=== PATIENT | female | born 1950 | race Caucasian/White ===

== ENCOUNTER 2016-11-22 14:51 | Observation (INO) ==
[2016-11-22] MEDS ORDERED: CARDIZEM IV ONE ×2 (15:09→17:11)
[2016-11-22 17:06] LABS: MANUAL DIFF NEEDED? NO
[2016-11-22 17:20] LABS: BASO% 0.8 % (0.0-0.8); EOS# 0.59 X1000 (0.0-0.7); EOS% 8.3 % (0.0-10.0); HEMATOCRIT 45.4 % (37.0-47.0); HEMOGLOBIN 15.2 g/dL (12.0-16.0); IMM GRAN# 0.04 X1000 (0.0-0.04); IMM GRAN% 0.6 % (0.0-0.5); LYMPH# 1.22 X1000 (1.2-3.4); LYMPH% 17.2 % (20.5-51.1); MCH 31.1 PG (27-31); MCHC 33.5 g/dL (33-37); MCV 92.8 FL (81-99); MONO# 0.83 X1000 (0.11-0.59); MONO% 11.7 % (1.7-9.3); MPV 12.5 FL (7.4-10.4); NEUT% 61.4 % (42.2-75.2); PLT 97 X1000 (130-400); RBC 4.89 XMIL (4.2-5.4)
[2016-11-22] MEDS ORDERED: CARDIZEM CD PO ONE (17:26)
[2016-11-22] MEDS ORDERED: ELIQUIS PO ONE (17:38)
--- NOTE | 2016-11-22 17:42 | PROVIDER DOCUMENTATION ---
This chart was entered by Natalia Tatum Scribe, acting as scribe for Lamine Lara MD. HPI-Cardiac General - General Chief Complaint: Palpitations Stated Complaint: ELEVATED BP/HEART RATE Time Seen by Provider: 11/22/16 15:05 Source: patient Allergies/Adverse Reactions: Patient Allergies Allergy/AdvReac Type Severity Reaction Status Date / Time codeine Allergy NAUSEA/VOMI Verified 11/22/16 15:36 TING milnacipran HCl * Allergy SWELLING Verified 11/22/16 15:37 [From Savella] morphine Allergy NAUSEA/VOMI Verified 11/22/16 15:37 TING prednisone Allergy HEADACHE Verified 11/22/16 15:37 pregabalin [From Lyrica] Allergy Unknown Verified 11/22/16 15:37 Home Medications: Home Medication List Medication Instructions Recorded Confirmed Last Taken Type Buspirone HCl [Buspirone HCl] 20 mg PO BID 11/22/16 11/22/16 11/22/16 History Cyclobenzaprine HCl 10 mg PO QHS 11/22/16 11/22/16 11/21/16 History [Cyclobenzaprine HCl] Docusate Sodium [Colace] 100 mg PO BID 11/22/16 11/22/16 11/22/16 History Duloxetine HCl [Duloxetine HCl] 30 mg PO QPM 11/22/16 11/22/16 11/21/16 History Duloxetine HCl [Duloxetine HCl] 60 mg PO QAM 11/22/16 11/22/16 11/22/16 History Estradiol [Estrace] 1 mg PO QAM 11/22/16 11/22/16 11/22/16 History Gabapentin [Neurontin] 200 mg PO QAM 11/22/16 11/22/16 11/22/16 History Gabapentin [Neurontin] 300 mg PO QPM 11/22/16 11/22/16 11/21/16 History Hydroxyzine HCl [Hydroxyzine HCl] 10 mg PO QHS 11/22/16 11/22/16 11/21/16 History Levothyroxine Sodium 100 mcg PO QAM 11/22/16 11/22/16 11/22/16 History [Levothyroxine Sodium] Meloxicam [Meloxicam] 15 mg PO DAILY 11/22/16 11/22/16 11/22/16 History Montelukast Sodium [Montelukast 10 mg PO QHS 11/22/16 11/22/16 11/21/16 History Sodium] Pantoprazole Sodium [Pantoprazole 40 mg PO QAM 11/22/16 11/22/16 11/22/16 History Sodium] Pentoxifylline [Pentoxifylline] 2 - 3 tab PO DAILY 11/22/16 11/22/16 11/22/16 History Tamsulosin HCl [Tamsulosin HCl] 0.4 mg PO BID 11/22/16 11/22/16 11/22/16 History Topiramate [Topiramate] 50 mg PO QPM 11/22/16 11/22/16 11/21/16 History - History of Present Illness-Cardiac Nature of Presenting Problem: Pt is 66 y/o F presents to the ED with palpitations. Pt states palpitations have been present for 2 months. Pt states the palpitations are intermittent. Pt denies N or V. Location: reports: central Quality of Pain: reports: throbbing Severity in ED: mild Onset/Duration: other (2 mths) Timing: still present Context/Activities at Onset: reports: light activity Modifying Factors: improves with: nothing Palpitation lasted? (mins): 70 Palpitation Quality: fast/pounding heart beat History of arrythmia: reports: none Recent use of:: reports: no stimulants Nitro Today/Relief: reports: no nitro taken today Aspirin Treatment Today: reports: no aspirin today Prior Chest Pain/Cardiac Workup: reports: no prior chest pain, no prior cardiac workup Associated Symptoms: reports: denies symptoms Similar Symptoms Previously?: Yes Recently Seen Here or By Another Healthcare Provider: No Review of Systems - Adult - REVIEW OF SYSTEMS - ADULT Constitutional: reports: no symptoms reported Eyes: reports: no symptoms reported Ears, Nose, Mouth & Throat: reports: no symptoms reported Cardiovascular: reports: irregular heart rate (tachy), palpitations. denies: chest pain, heart murmur Respiratory: reports: no symptoms reported Gastrointestinal: reports: no symptoms reported Genitourinary: reports: no symptoms reported Musculoskeletal: reports: no symptoms reported Integumentary: reports: no symptoms reported Neurological: reports: no symptoms reported Psychiatric: reports: no symptoms reported Endocrine: reports: no symptoms reported Hematologic/Lymphatic: reports: no symptoms reported Allergic/Immunologic: reports: no symptoms reported All Other Systems: Reviewed and Negative Past History - Adult - PAST MEDICAL HISTORY-ADULT Review of Records: reports: Nursing Assessment Review, Medications Reviewed, Social history reviewed & non-contributory. Major Childhood Illnesses: reports: denies history Cardiovascular: reports: denies history Respiratory: reports: denies history Gastrointestinal: reports: GERD Obstetrical/Gynecological: reports: other (hysterectomy) Genitourinary: reports: denies history Musculoskeletal: reports: denies history Neurological: reports: denies history Psychiatric: reports: depression Endocrine/Immune: reports: other (hypothyroidism) Other Conditions: reports: denies history - PRIOR SURGERIES/PROCEDURES Surgical/Procedure History: reports: cholecystectomy, hysterectomy - IMMUNIZATION STATUS Childhood Immunizations: See Nurse Assessment Flu Vaccine: See Nurse Assessment - FAMILY HISTORY Family History: reviewed, not pertinent - SOCIAL HISTORY Smoking: quit less than 1 year, cigarettes Substance Use: denies Living Situation: family Physical Exam-General - PHYSICAL EXAM-ADULT Initial Vital Signs Reviewed: Yes - CONSTITUTIONAL General Appearance: appears well, alert, no apparent distress - EYES Eyes: PERRL/EOMI, pink conjunctivae - HEAD, EARS, NOSE, MOUTH & THROAT HENMT: normocephalic/atraumatic, moist mucous membranes, normal ENT inspection, TMs normal, pharynx normal - NECK Neck: non-tender, full range of motion, supple, normal inspection - RESPIRATORY Respiratory: chest non-tender, lungs clear, normal breath sounds, no pleuratic chest pain, no respiratory distress, no accessory muscle use - CARDIOVASCULAR Cardiovascular: normal peripheral pulses, no edema, no gallop, no JVD, no murmur , tachycardia - GASTROINTESTINAL (ABDOMEN) Abdominal Exam: normal bowel sounds, non tender, soft, no organomegaly, no pulsatile mass - LYMPHATIC Lymphatic: no adenopathy - MUSCULOSKELETAL Back Exam: normal inspection, no CVA tenderness, no vertebral tenderness Extremity: normal range of motion, non-tender, normal gait, normal inspection, no pedal edema, no calf tenderness - SKIN Integumentary: normal color, normal turgor, warm/dry - NEUROLOGIC Neurologic: grossly normal - PSYCHIATRIC Psych/Mental Status: normal mood/affect, oriented x 3 Progress - PLAN OF CARE/RESULTS Progress/Plan/Lab Results: Vital Signs - 8 hr 11/22/16 14:58 11/22/16 15:37 11/22/16 17:19 Temperature 98.0 F Pulse Rate 148 H 145 H 83 Respiratory Rate 20 17 24 Blood Pressure 141/75 147/101 132/84 O2 Sat by Pulse Oximetry 100 97 Laboratory Results - last 24 hr 11/22/16 16:41 WBC 7.11 RBC 4.89 Hgb 15.2 Hct 45.4 MCV 92.8 MCH 31.1 H MCHC 33.5 RDW Std Deviation 13.5 Plt Count 97 L MPV 12.5 H Immature Gran % (Auto) 0.6 H Neut % (Auto) 61.4 Lymph % (Auto) 17.2 L [place] % (Auto) 11.7 H Eos % (Auto) 8.3 Baso % (Auto) 0.8 Immature Gran # (Auto) 0.04 Neut # (Auto) 4.37 Lymph # (Auto) 1.22 [place] # (Auto) 0.83 H Eos # (Auto) 0.59 Baso # (Auto) 0.06 Orders Category Date Time Status IV [Saline Loc] NOW Care 11/22/16 16:00 Active CBC WITH ELECTRONIC DIFF [HEME] Stat Lab 11/22/16 16:41 Completed COMPREHENSIVE METABOLIC PANEL [CHEM] Stat Lab 11/22/16 17:35 Ordered PROTIME WITH INR [COAG] Stat Lab 11/22/16 16:25 Ordered PTT [COAG] Stat Lab 11/22/16 16:25 Ordered Apixaban [Eliquis] Med 11/22/16 17:38 Once 5 mg PO NOW ONE Diltiazem C.d. [Cardizem Cd] Med 11/22/16 17:26 Discontinued 180 mg PO NOW ONE Diltiazem [Cardizem] Med 11/22/16 15:09 Discontinued 20 mg IV NOW ONE Diltiazem [Cardizem] Med 11/22/16 17:11 Discontinued 25 mg IV NOW ONE Result Diagrams: 11/22/16 16:41 - REASSESSMENT Reassessment #1 Status: improving (no in sinus rythme) - EKG 1 Time of EKG reading by physician:: 15:01 EKG Read and Signed by:: Lamine Lara EKG Interpretation (*Must complete 3 of following elements*): Abnormal (T wave abnormality, consider inferior ischemia) Rate: 146 Rhythm: atrial flutter with 2:1 AV conduction Comments: left axis deviation; nonspecific intraventricular block - CONSULTS/PCP/HOSPITALIST Notification #1 *Consult/PCP/Hospitalist*: Dr foster notified he elects to admit and let cardiology see her in AM Time Discussed: 17:40 Departure - Departure Time of Disposition Decision: 17:40 DIAGNOSIS: Paroxysmal atrial fibrillation Disposition: ADMITTED INPATIENT 09 Certified Medical Emergency: Emergent Condition: Stable Referrals and Follow-Ups: Clyde Foster MD [Primary Care Provider] - - Critical Care Note This patient required my direct & personal management of CC.: Yes Total Time (mins): 15 Critical Care Statement: This patient required my direct personal management to treat or rule out processes, the absence of which, could potentiallly result in sudden, clinically significant life or limb threatening deterioration. This chart was documented by the indicated scribe, (Natalia Tatum, [place]) and accurately reflects the services I performed and decisions made by me, Lamine Lara MD, as attested by the provider's signature.
[2016-11-22 19:01] LABS: AGAP 14; ALBUMIN 3.7 g/dL (3.5-5.0); ALKALINE PHOSPHATASE 83 U/L (32-104); BUN 13 mg/dL (8-22); CALCIUM 8.7 mg/dL (8.8-10.2); CHLORIDE 107 mmol/L (98-107); COSMO 282; GOT 18 U/L (10-30); GPT 9 U/L (10-36); POTASSIUM 4.5 mmol/L (3.5-5.1); SODIUM 141 mmol/L (136-145); TCO2 20 mmol/L (25-35); TOTAL BILIRUBIN 0.15 mg/dL (0.20-1.00); TOTAL PROTEIN 6.6 g/dL (6.3-8.3)
[2016-11-22] MEDS ORDERED: TYLENOL PO PRN (20:37)
[2016-11-22] MEDS ORDERED: G.I. COCKTAIL PO ONE (20:45)
[2016-11-22] MEDS ORDERED: FLEXERIL PO PRN (20:45)
[2016-11-22] MEDS: TOPAMAX PO SCH (22:33)
[2016-11-22] MEDS: CYMBALTA PO SCH (22:34)
[2016-11-22] MEDS: FLOMAX PO SCH (22:34)
[2016-11-22] MEDS: BUSPAR PO SCH (22:34)
[2016-11-22] MEDS: COLACE PO SCH (22:34)
[2016-11-22] MEDS: NEURONTIN PO SCH (22:34)
[2016-11-22] MEDS: SINGULAIR PO SCH (22:34)
[2016-11-22] MEDS: HYDROXYZINE PO SCH (22:38)
--- NOTE | 2016-11-22 23:14 | HISTORY AND PHYSICAL ---
PRIMARY CARE PHYSICIAN: Clyde Villegas MD CHIEF COMPLAINT: Chest pain. HISTORY OF PRESENT ILLNESS: A 66-year-old, white female with past medical history significant for fibrocystic breast disease, chronic pain, constipation, depression, venous stasis of the lower extremities, hypothyroidism, migraine headaches, palpitations, elevated blood pressure without diagnosis of hypertension presents for evaluation of above-mentioned symptoms. Current history of present illness began at approximately noon. At that time, the patient states upon exiting the shower, she developed palpitations and significant shortness of breath. After a short time, in addition to the above-mentioned symptoms, she developed dizziness. With time, the symptoms stabilized, but did not completely resolve. The patient was scheduled for a lymphedema treatment at a local physical therapist. Patient traveled there uneventfully. Upon arrival, patient was noted to have increasing shortness of breath and chest pressure. The pressure was located in the substernal region. She denies radiating pain or associated nausea or vomiting. Upon evaluation by the physical therapist, patient was noted to have a heart rate in the 140s and 150s. My office was contacted. Patient was instructed to go to the emergency department immediately. Upon arrival, patient was noted to have atrial fibrillation/atrial flutter with a rapid ventricular response. Patient was treated with Cardizem therapy with conversion back to normal sinus rhythm. Patient will be admitted to the hospital for full evaluation and management of paroxysmal atrial fibrillation with underlying chest discomfort. Of note, patient has had multiple episodes of nonsustained chest discomfort over the course of the last several months. Each of these are described as a substernal pressure without radiation, nausea, or vomiting. Each of these episodes ultimately were self-limiting. In addition, patient complains of increasing shortness of breath/dyspnea on exertion as well as possible orthopnea. She sleeps on 3 pillows. She denies paroxysmal nocturnal dyspnea or significant change in her chronic lower extremity edema. PAST MEDICAL HISTORY: 1. History of an abnormal skin examination with multiple nevi. 2. Fibrocystic breast disease status post bilateral mastectomies and subsequent implantation. 3. Status post bilateral cataract removal. 4. Cholecystitis status post status post open cholecystectomy in 1974. 5. Chronic pain, treated with tramadol, Cymbalta, and exercise. 6. Chronic constipation. 7. Depression/anxiety. 8. Stasis dermatitis of bilateral lower extremities. 9. Dyspareunia. 10. Reflux disease. 11. Hypothyroidism. 12. Low back pain. 13. Macular degeneration. 14. Menopause. 15. Migraine headaches. 16. History of tobacco use. 17. Osteoarthritis. 18. Palpitations. 19. History of peptic ulcer disease in the . 20. Colonic polyps. 21. Elevated blood pressure without a diagnosis of hypertension. 22. History of a right kidney angiomyolipoma. 23. History of shoulder dislocation in 1970. 24. Uterine prolapse status post IGGY in 1974. CURRENT MEDICATIONS: 1. Meloxicam 15 mg daily. 2. Buspirone 20 mg twice daily. 3. Flexeril 10 mg at bedtime as needed. 4. Colace 100 mg twice daily. 5. Duloxetine 60 mg in the morning and 30 mg in the evening. 6. Estradiol 1 mg daily. 7. Gabapentin 200 mg in the morning, 300 mg in the evening. 8. Hydroxyzine 10 mg at bedtime. 9. Levothyroxine 100 mcg daily. 10. Singulair 10 mg at bedtime. 11. Pantoprazole 40 mg daily. 12. Pentoxifylline 400 mg 2 tablets daily. 13. Tamsulosin 0.4 mg twice a day. 14. Topamax 50 mg at bedtime. ALLERGIES: Patient states she is allergic to codeine, Lortab, Lyrica, morphine , prednisone, Savella, and Valium. SOCIAL HISTORY: Patient previously smoked 2 packs per day for 24 years. She stopped in 1988. Denies alcohol or illicit drug use. She is a retired nurse from [employer]. She enjoys her grandchildren. She does not exercise routinely. FAMILY HISTORY: Patient's father passed at age 88 secondary to complications of aspiration pneumonia. He had a history of significant dysphagia and weight loss prior to his suggestive of a possible GI malignancy. The patient's mother passed at age 88 secondary to aspiration pneumonia. She had a history of dementia and hypertension. REVIEW OF SYSTEMS: A 12 point review of systems was performed. Pertinent positives and negatives noted in history present illness. PHYSICAL EXAMINATION: VITAL SIGNS: Temperature 98.1 degrees, heart rate, 79-148, respirations 17 to 24, blood pressure 106-147/56-101. GENERAL: Well nourished, well developed, in no acute distress. HEENT: Normocephalic, atraumatic. Pupils equal, round, react to light. Extraocular muscle motions intact. Sclerae anicteric. [place] conjunctivae. Oral and nasopharynx clear without exudate. NECK: Supple. No lymphadenopathy. No thyromegaly. No bruits auscultated. CARDIOVASCULAR: Regular rate and rhythm. No significant murmurs, rubs, or gallops. PULMONARY: Clear to auscultation bilaterally. ABDOMEN: Soft, nontender, nondistended. Positive bowel sounds. EXTREMITIES: Moves all extremities well. 1 to 2+ lower extremity edema bilaterally with venous stasis changes. NEUROLOGIC: Cranial nerves 2 through 12 grossly intact. Motor and sensory grossly intact. PSYCHOLOGIC: Examination is appropriate. LABORATORY DATA: White blood cell count 7.11, hemoglobin 15.2, hematocrit 45.4 , platelet counts 97,000. Sodium 141, potassium 4.5, chloride 107, bicarb 20, BUN 13, creatinine 0.8, glucose 107, calcium 8.7, total bilirubin 0.15, total protein 6.6, albumin 3.7, alkaline phosphatase 83, AST 18, ALT 9. ASSESSMENT AND PLAN: A 66-year-old, white female with past medical history as noted presents for evaluation of tachycardia. EKG is consistent with atrial fibrillation/atrial flutter with a rapid ventricular response. While in the emergency department, patient was treated with Cardizem therapy. The patient converted from atrial fibrillation/atrial flutter to a sinus-generated rhythm. Eliquis therapy was initiated. Upon my arrival, patient was feeling better, although not back to baseline. At this point, patient will be admitted to the hospital for full evaluation and management of paroxysmal atrial fibrillation/atrial flutter. 1. Admit to General Medicine. 2. Paroxysmal atrial fibrillation/atrial flutter. As above, patient converted to sinus- generated rhythm with Cardizem therapy. We will continue long-acting Cardizem. Eliquis twice daily was initiated. We will schedule an echocardiogram in the a.m. We will consult Cardiology. We will follow serial cardiac enzymes. We will check a thyroid stimulating hormones and magnesium level. We will follow her clinical course closely. 3. Chest discomfort-certainly ischemia could have precipitated her underlying atrial fibrillation. We will follow serial cardiac enzymes. We will treat patient for atrial fibrillation as above. We will consult Cardiology in the morning. We will determine if further stress testing or cardiac intervention is appropriate. 4. Reflux disease-patient has known disease. Certainly the patient's chest symptoms could be reflux associated. We will provide patient with a gastrointestinal cocktail. We will continue pantoprazole therapy. 5. Elevated blood pressure without diagnosis of hypertension. We will monitor patient's blood pressure closely with addition of Cardizem therapy. 6. Anxiety/depression-we will remain aware. We will continue patient on her current regimen. 7. Fluid, electrolytes, nutrition-we will monitor electrolytes, saline lock IV, cardiac prudent diet, 8. Prophylaxis. Patient will be placed on Eliquis therapy. cc: Clyde Villegas MD MTDD
--- NOTE | 2016-11-23 05:27 | EKG Report ---
Test Performed on : 11/22/2016 9:03:24 PM Test Reason : recheck Blood Pressure : / mmHG Vent. Rate : 076 BPM Atrial Rate : 076 BPM P-R Int : 150 ms QRS Dur : 084 ms QT Int : 390 ms P-R-T Axes : 070 032 062 degrees QTc Int : 438 ms Normal sinus rhythm. Septal infarct , age undetermined Abnormal ECG When compared with ECG of 22-NOV-2016 15:01, (Unconfirmed) Significant changes have occurred Confirmed by Adilson DUFF, Dale Oswald ([id number]) on 11/23/2016 7:32:59 AM
--- NOTE | 2016-11-23 05:44 | EKG Report ---
Test Performed on : 11/22/2016 3:01:49 PM Test Reason : atrial fib Blood Pressure : / mmHG Vent. Rate : 146 BPM Atrial Rate : 292 BPM P-R Int : 000 ms QRS Dur : 142 ms QT Int : 340 ms P-R-T Axes : 255 -45 056 degrees QTc Int : 529 ms Atrial flutter. with 2:1 AV conduction. Left axis deviation Nonspecific intraventricular block T wave abnormality, consider inferior ischemia Abnormal ECG No previous ECGs available Confirmed by Dale De Anda MD ([id number]) on 11/25/2016 12:02:40 PM
[2016-11-23] MEDS: PRILOSEC PO SCH (06:21)
[2016-11-23] MEDS: SYNTHROID PO SCH (06:21)
[2016-11-23 07:49] LABS: MANUAL DIFF NEEDED? NO
--- NOTE | 2016-11-23 07:52 | EKG Report ---
Test Performed on : 11/23/2016 07:30:52 AM Test Reason : atrial fib Blood Pressure : / mmHG Vent. Rate : 065 BPM Atrial Rate : 065 BPM P-R Int : 162 ms QRS Dur : 088 ms QT Int : 434 ms P-R-T Axes : 050 009 062 degrees QTc Int : 451 ms Normal sinus rhythm. Normal ECG When compared with ECG of 22-NOV-2016 21:03, Criteria for Septal infarct are no longer present Confirmed by Dale De Anda MD ([id number]) on 11/25/2016 12:03:02 PM
[2016-11-23 07:59] LABS: BASO% 1.7 % (0.0-0.8); EOS% 11.1 % (0.0-10.0); HEMATOCRIT 38.8 % (37.0-47.0); HEMOGLOBIN 12.6 g/dL (12.0-16.0); LYMPH# 1.18 X1000 (1.2-3.4); LYMPH% 21.8 % (20.5-51.1); MCH 31.3 PG (27-31); MCHC 32.5 g/dL (33-37); MCV 96.3 FL (81-99); MONO# 0.76 X1000 (0.11-0.59); MPV 10.5 FL (7.4-10.4); NEUT% 51.4 % (42.2-75.2); PLT 214 X1000 (130-400); RBC 4.03 XMIL (4.2-5.4)
[2016-11-23 08:21] LABS: AGAP 15; ALBUMIN 3.4 g/dL (3.5-5.0); ALKALINE PHOSPHATASE 79 U/L (32-104); BUN 16 mg/dL (8-22); CALCIUM 8.8 mg/dL (8.8-10.2); CHLORIDE 105 mmol/L (98-107); CK PROFILE 101 U/L (24-173); COSMO 283; GOT 16 U/L (10-30); GPT 11 U/L (10-36); POTASSIUM 4.5 mmol/L (3.5-5.1); SODIUM 141 mmol/L (136-145); TCO2 21 mmol/L (25-35); TOTAL BILIRUBIN 0.33 mg/dL (0.20-1.00); TOTAL PROTEIN 6.3 g/dL (6.3-8.3)
[2016-11-23 08:42] LABS: FREE T4 0.92 ng/dL (0.93-1.70)
[2016-11-23] MEDS: ESTRACE PO SCH (09:54)
[2016-11-23] MEDS: CARDIZEM LA PO SCH (09:54)
[2016-11-23] MEDS: ELIQUIS PO SCH ×2 (09:54→20:37)
[2016-11-23] MEDS: BUSPAR PO SCH ×2 (09:54→20:38)
[2016-11-23] MEDS: NEURONTIN PO SCH ×2 (09:55→20:37)
[2016-11-23] MEDS: CYMBALTA PO SCH ×2 (09:55→20:38)
[2016-11-23] MEDS: PROTONIX PO SCH (09:56)
[2016-11-23] MEDS: FLOMAX PO SCH ×2 (09:56→20:37)
[2016-11-23] MEDS: COLACE PO SCH ×2 (09:56→20:37)
[2016-11-23] MEDS: TRENTAL PO SCH ×2 (09:56→20:37)
--- NOTE | 2016-11-23 11:49 | CONSULTATION ---
DATE OF CONSULTATION: 11/23/2016 IMPRESSION: 1. Symptomatic atrial flutter with rapid ventricular rate with associated symptoms of shortness of breath, chest pressure, and tachy palpitations. The episode lasted several hours and spontaneously resolved in the emergency room following initiation of intravenous Cardizem. 2. Remote history of smoking. RECOMMENDATIONS: 1. Follow up cardiac enzymes. 2. Echocardiography. 3. Arrange for screening stress study. 4. Ultimately, the patient would benefit from arrhythmia consultation to consider ablation. In the interim, it would seem reasonable to continue her on beta-vangie to blunt tendency for tachycardia should her atrial flutter recur. 5. Outpatient ambulatory ECG recording with loop monitor for approximately 30 days would be useful in decision-making process regarding ablation. HISTORY: This 66-year-old, white female with no prior cardiac history was admitted through the emergency room yesterday with symptomatic atrial flutter with rapid ventricular rate. She had just taken a shower around midday yesterday and upon stepping out, developed sudden onset of tachy palpitations with associated chest pressure and lightheadedness. Symptoms persisted. She had an appointment in [place] to have treatment related to venous stasis of the lower extremities. Her symptoms persisted and she elected to come in to the emergency room. She was found to be in atrial flutter with rapid ventricular rate. She was started on intravenous Cardizem and converted back to sinus rhythm. Her chest symptoms improved. She does have a tendency for chronic pain syndrome. She recalls occasional brief episodes of tachy palpitations but no prior episodes such as what she experienced on the day of admission. PAST MEDICAL HISTORY: 1. Negative for hypertension, negative for diabetes, and negative for hypercholesterolemia. 2. Hypothyroidism. 3. Gastroesophageal reflux. 4. Depression/anxiety. 5. Chronic pain syndrome treated with tramadol, Cymbalta, and exercise. 6. Macular degeneration. 7. Remote history of peptic ulcer disease. PAST SURGICAL HISTORY: Includes bilateral mastectomy and subsequent reconstruction surgery for fibrocystic breast disease, cholecystectomy, hysterectomy. MEDICATIONS PRIOR TO ADMISSION: As listed. ALLERGIES: She is allergic or intolerant to codeine, Lortab, Lyrica, morphine, prednisone, Savella, and Valium. SOCIAL HISTORY: She previously smoked 2 packs of cigarettes per day for about 24 years. Discontinued this in 1988. She does not use alcohol. FAMILY HISTORY: Negative for premature coronary disease. REVIEW OF SYSTEMS: Pulmonary: Negative. Gastrointestinal: Negative. Constitutional: Negative. The remainder of the review of systems is negative beyond the history of present illness with 14 total systems reviewed. PHYSICAL EXAMINATION: General: This is an overweight, older, white female, in no distress. Vital Signs: As recorded, are stable. HEENT Examination: Extraocular movements appear intact. Mucous membranes are moist. Neck: Supple without jugular venous distention. There are no carotid bruits. Chest: Clear to auscultation. Cardiac Examination: Was a regular rate and rhythm without appreciable murmur or gallop. Abdomen: Soft, nontender. Bowel sounds are normal. Extremities: Demonstrate mild lower extremity edema bilaterally with venous stasis changes. Neurologic Examination: Reveals her to be alert, fully oriented. Speech is fluent. She moves all 4 extremities equally well. Skin: Warm and dry. Psychiatric Examination: Reveals mood to be appropriate. DIAGNOSTIC DATA: ECG on presentation demonstrates atrial flutter with 2:1 conduction. Repeat ECG after conversion back to sinus rhythm demonstrates normal sinus rhythm and is within normal limits. LABORATORY DATA: Includes a initial troponin of 0.021, a followup troponin of 0.02. TSH 2.03. cc: MD Clyde Adams MD
[2016-11-23] MEDS ORDERED: ULTRAM PO PRN (14:04)
[2016-11-23] MEDS ORDERED: IMITREX SUBQ ONE (16:44)
[2016-11-23] MEDS: HYDROXYZINE PO SCH (20:37)
[2016-11-23] MEDS: TOPAMAX PO SCH (20:37)
[2016-11-23] MEDS ORDERED: PRILOSEC PO ONE (20:37)
[2016-11-23] MEDS: SINGULAIR PO SCH (20:38)
--- NOTE | 2016-11-23 22:13 | PROGRESS NOTE ---
DATE: 11/23/2016 SUBJECTIVE: The patient was admitted yesterday with atrial flutter with rapid ventricular response and chest discomfort. The patient was treated with IV Cardizem, with conversion to a normal sinus rhythm. She subsequently was placed on Cardizem CD and Eliquis therapy. She has maintained a normal sinus rhythm. Prior to admission, the patient has noted several weeks of intermittent chest discomfort. The patient was noted to have chest discomfort with her atrial fibrillation. Unfortunately, this has persisted, despite GI intervention. Dr. Shaffer was consulted. Echocardiogram was performed. Stress testing is pending. At present time, patient states she feels reasonably well. She was treated for a migraine headache earlier this evening. Otherwise, her chest discomfort has improved considerably. OBJECTIVE: Vital Signs: T-max 98.3, heart rate 63-79, respirations 16-18, blood pressure 91-132 over 38-72. General: Well-nourished, well-developed, in no acute distress. Cardiovascular: Regular rate and rhythm. No significant murmurs, rubs, or gallops. Pulmonary: Clear to auscultation bilaterally. Abdomen: Soft, nontender, nondistended. Positive bowel sounds. Extremities: Moves all extremities well. No significant clubbing, cyanosis, or edema. Dermatologic: Evaluation reveals no evidence of a rash. LABORATORY DATA: White blood cell count 5.41, hemoglobin 12.6, hematocrit 38.8, platelet count 214,000. Sodium 141, potassium 4.5, chloride 105, bicarbonate 21, BUN 16, creatinine 0.8, glucose 104. Calcium 8.3. Total bilirubin 0.33, total protein 6.3, albumin 3.4, alkaline phosphatase 79, AST 16, ALT 11. CK total 101. Troponin 0.020. TSH 2.03, free T4 0.92. ASSESSMENT AND PLAN: 1. Paroxysmal atrial flutter, with rapid ventricular response - As above. The patient was treated with Cardizem while in the emergency department. She converted back to a normal sinus rhythm. She has been transitioned from IV to oral Cardizem. She has been placed on Eliquis therapy. We will consult Dr. Shaffer for further evaluation and management from a cardiologic standpoint. 2. Chest discomfort - The question is raised whether this was rate dependent or whether this was ischemic mediated. We will also keep in mind the possibility of GI origin. As above, we will consult Dr. Shaffer. We will plan an echocardiography and stress testing. If this returns negative, we will consider alternative etiologies. 3. Lower extremity edema - The patient has chronic lower extremity edema. The patient certainly is at risk for a deep venous thrombosis. We will check lower extremity venous Dopplers. We will determine if further intervention is necessary. 4. Migraine headaches - The patient experienced a significant migraine today. She was treated with IM Imitrex. Symptoms have improved. 5. Reflux disease - We will continue on a proton pump inhibitor. 6. Elevated blood pressure, without the diagnosis of hypertension - The patient's blood pressure will be followed with the addition of Cardizem therapy. Blood pressure at present time is acceptable. 7. Pain anxiety/depression - We will remain aware. 8. Disposition - At this point, the patient continues to require halfway care in the hospital setting. We will plan discharge home once appropriate. cc: Clyde Villegas MD
[2016-11-24] MEDS: PRILOSEC PO SCH (06:30)
[2016-11-24] MEDS: SYNTHROID PO SCH (06:30)
[2016-11-24] MEDS: CARDIZEM LA PO SCH (08:06)
[2016-11-24] MEDS ORDERED: LEXISCAN ONE (08:39)
[2016-11-24] MEDS: ESTRACE PO SCH (10:51)
[2016-11-24] MEDS: NEURONTIN PO SCH (10:51)
[2016-11-24] MEDS: FLOMAX PO SCH (10:52)
[2016-11-24] MEDS: CYMBALTA PO SCH (10:52)
[2016-11-24] MEDS: ELIQUIS PO SCH (10:52)
[2016-11-24] MEDS: COLACE PO SCH (10:52)
[2016-11-24] MEDS: PROTONIX PO SCH (10:52)
[2016-11-24] MEDS: BUSPAR PO SCH (10:52)
[2016-11-24] MEDS: TRENTAL PO SCH (10:52)
[2016-11-24 11:25] VITALS: BP 108/52
--- NOTE | 2016-11-24 11:50 | ECHO REPORT ---
ORDER DATE: 11/23/2016 PROCEDURE: Echocardiogram. ECHOCARDIOGRAPHIC MEASUREMENTS: 1. Interventricular septum 1.0. 2. Left ventricular posterior wall 1.3. 3. Diastolic diameter 4.1. 4. Left atrium 3.9. INTERPRETATION: 1. Aortic valve leaflets are trileaflet. 2. Pulmonic valve was normal. 3. Tricuspid valve was normal. 4. Mitral valve was normal. 5. Normal left ventricular cavity size. Estimated ejection fraction of 60%. 6. Technically suboptimal study. Poor apical windows. 7. Doppler studies revealed there is no aortic stenosis or regurgitation. There is trace mitral regurgitation. 8. Trace tricuspid regurgitation. Peak velocity across the tricuspid valve was 2.6 m/sec. 9. Pulmonary artery systolic pressure of 36 mmHg. 10. Prominent moderator band was noted in the right ventricle normal variant. 11. There is no pericardial effusion or obvious intracardiac mass or thrombus seen. 12. Anterior echo-free space suggestive of pericardial fat pad was noted. 13. There is borderline left atrial enlargement. cc: Tavo Dasilva MD
--- NOTE | 2016-11-24 13:59 | Extremity Venous Study ---
PROCEDURE NAME: Venous U/S Bilateral Legs - 11/22/2016 Exam for comparison of June 2013. STAFF [employer] OFFICER: [place] REQUESTING PHYSICIAN: Clyde Villegas MD INDICATIONS FOR STUDY: Edema in legs, history of right greater saphenous vein ablation, and a history of left greater saphenous vein ablation attempted, but failed. FINDINGS: All veins, deep and superficial veins, were visualized along their course. All veins were compressible with forward flow. No evidence of intraluminal thrombus. There was evidence of an ablated right greater saphenous vein. On the left, the left greater saphenous vein did appear patent with flow. There was some reflux noted in the right common femoral vein. SUMMARY: No deep or superficial venous thrombosis seen in the bilateral lower extremities, but reflux noted in the deep system, at least on the right. cc: MD Clyde Chavarria MD
--- NOTE | 2016-11-24 14:24 | Diag Imaging Result Document ---
PROCEDURE NAME: MYOCARDIAL PERF SCAN, STR/REST - 11/23/2016 SUMMARY: The patient was studied using a two-day protocol. On November 23 the patient was administered 29.9 millicuries of technetium-99m sestamibi after which resting cardiac images were obtained. Patient underwent Lexiscan sestamibi study on 11/24/2016. The patient was administered Lexiscan, after which the heart rate went from 68 beats per minute to 90 beats per minute. The blood pressure went from 110/54 to 121/60. With Lexiscan, the patient denied chest discomfort. Following the administration of Lexiscan, the patient was administered 31.1 millicuries of technetium-99m sestamibi after which gated stress cardiac images were obtained. Baseline ECG demonstrates sinus rhythm and was within normal limits. With Lexiscan, there were no diagnostic ST-segment changes. SPECT images were reconstructed in the short, horizontal, and vertical long axis. Review of these images demonstrated a small region of mildly diminished activity in the apex of the left ventricle on stress images which appears similar on resting images. No significant reversibility is evident. Gated images demonstrate a calculated left ventricular ejection fraction 76% with symmetrical wall motion. CONCLUSIONS: 1. Adequate response to Lexiscan. 2. Clinically negative for chest pain. 3. Electrocardiographically negative for Lexiscan induced myocardial ischemia. 4. Lexiscan sestamibi images demonstrate small fixed area of mildly diminished activity in the apex with corresponding preserved regional wall motion probably due to soft tissue attenuation. There is no convincing scintigraphic evidence of inducible myocardial ischemia. Normal left ventricular systolic function demonstrated. cc: Vince Shaffer MD
--- NOTE | 2016-11-24 14:48 | PROGRESS NOTE ---
DATE: 11/24/2016 SUBJECTIVE: The patient continues without chest symptoms. She remains in sinus rhythm. OBJECTIVE: Vital Signs: Blood pressure 108/52, heart rate 70 and regular. Oxygen saturation 94% on room air. Chest: Clear to auscultation. Cardiovascular: A regular rate and rhythm without appreciable murmur or gallop. There is mild lower extremity edema. LABORATORY DATA: Echocardiography reveals normal left ventricular systolic function without wall motion abnormality and no significant valvular abnormality. Lexiscan sestamibi study demonstrates no evidence of inducible myocardial ischemia. IMPRESSION: 1. Episode of symptomatic atrial flutter with rapid ventricular rate. Spontaneously converted to sinus rhythm after several hours. 2. No significant structural heart disease by noninvasive evaluation. RECOMMENDATIONS: 1. Continue diltiazem and Eliquis for now. 2. Reasonable to discharge the patient. 3. Outpatient 30 day event recorder with followup with her regular rail splitter, Dr. Clark in [place]. 4. If no recurrence of atrial arrhythmias it may be reasonable to switch her from Eliquis to aspirin daily. cc: MD Clyde Adams MD
--- NOTE | 2016-11-24 22:52 | DISCHARGE SUMMARY ---
ADMISSION DATE: 11/22/2016 DISCHARGE DATE: 11/24/2016 ADMISSION DIAGNOSIS: Chest pain. DISCHARGE DIAGNOSES: 1. Paroxysmal atrial flutter with rapid ventricular response, resolved. 2. Chest discomfort with negative stress test. 3. Lower extremity edema with lower extremity Doppler negative for DVT, present on arrival. 4. Migraine headaches, present on arrival. 5. Reflux disease, present on arrival. 6. Elevated blood pressure without a diagnosis of hypertension, present on arrival. 7. Anxiety/depression, present on arrival. CONSULTATIONS: Vince Shaffer MD with Cardiology was consulted for further evaluation and management of atrial flutter and chest discomfort. PROCEDURES: 1. A lower extremity venous Doppler was performed on 11/22/2016 which revealed no deep or superficial venous thrombosis seen in the bilateral lower extremities, but reflux noted in the deep system at least on the right. 2. Echocardiogram was performed on 11/23/2016 which revealed aortic valve leaflets are trileaflet. Pulmonic valve was normal. Tricuspid valve was normal. Mitral valve was normal. Normal left ventricular cavity size. Estimated ejection fraction of 60%. Technically suboptimal study. Poor apical windows. Doppler studies revealed there is no aortic stenosis or regurgitation. There is trace mitral regurgitation. Trace tricuspid regurgitation. Peak velocity across the tricuspid valve was 2.6 L/sec. Pulmonary artery systolic pressure of 36 mmHg. Prominent moderator band was noted in the right ventricle with normal variant. There is no pericardial effusion or obvious intracardiac mass or thrombus seen. Anterior echo-free space suggestive of pericardial fat pad was noted. There is borderline left atrial enlargement. 3. A Myocardial Perfusion Scan was performed which revealed adequate response to Lexiscan. Clinically negative for chest pain. Electrocardiographically negative for Lexiscan induced myocardial ischemia. Lexiscan sestamibi images demonstrate a small fixed area of mildly diminished activity in the apex with corresponding preserved regional wall motion probably due to soft tissue attenuation. There is no convincing evidence of inducible myocardial ischemia. Normal left ventricular systolic function demonstrated. HISTORY AND PHYSICAL EXAMINATION: See admit note. PHYSICAL EXAMINATION PRIOR TO DISCHARGE: Vital Signs: Temperature 97.6 degrees, heart rate 70, respirations 20, blood pressure is 108/52. General: Well-nourished, well-developed, in no acute distress. Cardiovascular: Regular rate and rhythm. No significant murmurs, rubs, or gallops. Pulmonary: Clear to auscultation bilaterally. Abdomen: Soft, nontender, nondistended. Positive bowel sounds. Extremities: Moves all extremities well. No significant clubbing or cyanosis. Patient has 1+ lower extremity edema bilaterally. Dermatologic: Evaluation reveals venous stasis changes to bilateral lower extremities. Otherwise no rash. LABORATORY DATA PRIOR TO DISCHARGE: None. HOSPITAL COURSE: Patient was admitted as per history and physical examination. Hospital course per condition is as follows: 1. Paroxysmal atrial flutter - Upon admission to the emergency department, patient was noted to have atrial flutter with a rapid ventricular response with heart rates greater than 140. Patient was given IV Cardizem followed by oral Cardizem. Throughout hospitalization, patient remained in a sinus-generated rhythm. Full evaluation for possible ischemic etiology was pursued as described below. At time of discharge, patient was asymptomatic. She will be discharged on Cardizem-LA 120 mg daily and Eliquis. Followup with Dr. Clark will be arranged within the next 1-2 days. 2. Chest discomfort - Upon admission, patient was noted to have atypical chest discomfort. Full cardiac evaluation was pursued as described above. Despite a negative evaluation, patient continues to have intermittent, nonsustained symptoms. Upon discussion, this has been present for several months. At this point, patient is interested in discharge home with followup with Dr. Clark. I agree with patient's request, but noted should symptoms progress, she is to go to the emergency department immediately. We will plan followup with Dr. Clark immediately. I suspect patient may require left heart catheterization to definitively define her anatomy as she does have a family history of heart disease. We will defer management. 3. Lower extremity edema - Patient has longstanding lower extremity edema. Venous Doppler returned negative for DVT. She was, however, noted to have venous reflux. Prior to hospitalization, patient was being seen by a physical therapist for lymphedema training. We will plan to resume this in the near future. 4. Lymphedema treatment - We will plan to resume this in the near future. 5. Migraine headaches - Patient had a migraine headache while hospitalized. She was treated with IM Imitrex with resolution. We will continue this as an outpatient as needed. 6. Reflux disease - We will continue patient on pantoprazole therapy. We remain aware that this may be playing a role in her chest discomfort. We will, however, complete a cardiac evaluation prior to further GI intervention. 7. Elevated blood pressure without diagnosis of hypertension - This was noted upon admission. Blood pressure while hospitalized was low while on Cardizem therapy. She was being treated with 180 mg daily. Unfortunately, with standing, she was demonstrating some signs of orthostasis. We will decrease patient's Cardizem to 120 mg prior to discharge. The patient understands that this will not suppress her atrial flutter as significantly as a higher dosage. We will follow this closely as an outpatient. 8. Depression/anxiety - Patient was continued on home medications while hospitalized. DISCHARGE CONDITION: Good. DISPOSITION: Discharge to home. MEDICATIONS: 1. Acetaminophen 650 mg every 4 hours as needed. 2. Eliquis 5 mg twice daily. 3. BuSpar 20 mg twice daily. 4. Flexeril 10 mg at bedtime. 5. Colace 100 mg twice daily. 6. Duloxetine 60 mg in the morning and 30 mg in the evening. 7. Estradiol 1 mg daily. 8. Gabapentin 200 mg in the morning and 300 mg in the evening. 9. Hydroxyzine 10 mg at bedtime. 10. Levothyroxine 100 mcg daily. 11. Singulair 10 mg at bedtime. 12. Pantoprazole 40 mg daily. 13. Pentoxifylline 400 mg twice daily. 14. Tamsulosin 0.4 mg twice daily. 15. Topamax 50 mg at bedtime. 16. Tramadol as needed. 17. Diltiazem ER 120 mg daily. FOLLOWUP: Patient is to follow up with me in approximately 1-2 weeks. The patient to follow up with Dr. Clark in 1-2 days. cc: Clyde Villegas MD
== END 2016-11-24 19:57 | disposition home or self-care (01) ==
LOC: 4N 14:51 → ED 14:51
PROVIDERS: ADMIT Internal Medicine; ATTEND Internal Medicine

== ENCOUNTER 2019-10-10 08:45 | Inpatient (IN) ==
[2019-10-10] MEDS ORDERED: ROCEPHIN 1 GM in NS 50 ML IV ONE (09:03)
[2019-10-10] MEDS ORDERED: DUONEB (A & A) INH ONE (09:03)
[2019-10-10] MEDS ORDERED: SOLU-MEDROL IV ONE (09:03)
--- NOTE | 2019-10-10 09:21 | PROVIDER DOCUMENTATION ---
HPI-Respiratory General - General Chief Complaint: Shortness of Breath Stated Complaint: SOB,AMS Time Seen by Provider: 10/10/19 08:52 Source: patient, family, EMS Allergies/Adverse Reactions: Patient Allergies Allergy/AdvReac Type Severity Reaction Status Date / Time codeine Allergy NAUSEA/VOMI Verified 10/10/19 09:56 TING milnacipran HCl * Allergy SWELLING Verified 10/10/19 09:56 [From Savella] morphine Allergy NAUSEA/VOMI Verified 10/10/19 09:56 TING prednisone Allergy HEADACHE Verified 10/10/19 09:56 pregabalin [From Lyrica] Allergy Unknown Verified 10/10/19 09:56 Home Medications: Home Medication List Medication Instructions Recorded Confirmed Last Taken Type Cyclobenzaprine HCl 10 mg PO QHS 11/22/16 10/10/19 09/01/19 History Estradiol [Estrace] 1 mg PO QAM 11/22/16 10/10/19 09/01/19 History Acetaminophen [Tylenol] 650 mg PO Q4H PRN PRN #0 tablet 11/24/16 10/10/19 09/01/19 Rx Acyclovir [Zovirax] 400 mg PO DAILY tab 10/04/19 10/10/19 Unknown Rx Buspirone [Buspar] 10 mg PO 1200 tab 10/04/19 10/10/19 Unknown Rx Buspirone [Buspar] 20 mg PO BID tab 10/04/19 10/10/19 Unknown Rx Dicyclomine [Bentyl] 10 mg PO TID AC cap 10/04/19 10/10/19 Unknown Rx Diltiazem L.a. [Cardizem LA] 120 mg PO QHS tab 10/04/19 10/10/19 Unknown Rx Duloxetine [Cymbalta] 60 mg PO BID cap 10/04/19 10/10/19 Unknown Rx Famotidine [Pepcid] 20 mg PO DAILY tab 10/04/19 10/10/19 Unknown Rx Fexofenadine [Anne] 180 mg PO QHS tab 10/04/19 10/10/19 Unknown Rx Fluticasone 50 Mcg Nasal [place] 2 spray INTRANASAL BID bottle 10/04/19 10/10/19 Unknown Rx [Flonase] Furosemide [Lasix] 40 mg PO DAILY tab 10/04/19 10/10/19 Unknown Rx Gabapentin [Neurontin] 300 mg PO TID@0900,1300,2100 cap 10/04/19 10/10/19 Unknown Rx Ipratropium [place] Neb [Atrovent 0.5 mg INH RTQ6H.TN neb 10/04/19 10/10/19 Unknown Rx Neb] Lactobacillus Rhamnosus GG 1 ea PO BID cap 10/04/19 10/10/19 Unknown Rx [Culturelle] Levalbuterol Neb [Xopenex Neb] 0.63 mg INH RTQ6H.TN neb 10/04/19 10/10/19 Unknown Rx Levothyroxine [Synthroid] 112 microgm PO DAILY@0700 tab 10/04/19 10/10/19 Unknown Rx Nystatin Powder [Mycostatin Powder] 1 applic TOP BID PRN PRN bottle 10/04/19 10/10/19 Unknown Rx Oxybutynin E.r. [Ditropan Xl] 10 mg PO DAILY tab 10/04/19 10/10/19 Unknown Rx Pantoprazole [Protonix] 40 mg PO QHS tab 10/04/19 10/10/19 Unknown Rx Polyethylene Glycol 3350 [Miralax] 17 gm PO DAILY PRN PRN powder, 10/04/19 10/10/19 Unknown Rx packet Prednisone 40 mg PO DAILY tab 10/04/19 10/10/19 Unknown Rx Saline Nasal [place] [[place] Nasal 1 spray INTRANASAL PRN PRN bottle 10/04/19 10/10/19 Unknown Rx [place]] Sotalol [Betapace] 80 mg PO BID tab 10/04/19 10/10/19 Unknown Rx Sumatriptan Subq [Imitrex Subq] 6 mg SUBQ Q12H PRN PRN vial 10/04/19 10/10/19 Unknown Rx Topiramate [Topamax] 50 mg PO QPM tab 10/04/19 10/10/19 Unknown Rx - History of Present Illness-Resp Nature of Presenting Problem: 69 y/o history of pulmonary fibrosis on home oxygen presented with dyspnea, respiratory distress, constant cough and tachycardia, appeared in respiratory distress. no fever was reported. Severity in ED: reports: moderate Onset/Duration: reports: gradual, other (chronic symptoms worsening this morning, recently discharged from hospital ICU) Timing: reports: still present Exposure: denies: smoke exposure Cough Quality/Degree: reports: moderate, productive cough Episode Frequency: frequent episodes Current Respiratory Medication Therapy: Initiated A/A nebulizer Associated Symptoms: reports: cough, shortness of breath, wheezing Similar Symptoms Previously?: Yes Recently seen or treated by another doctor?: Yes (recently admitted to hospital ) Review of Systems - Adult - REVIEW OF SYSTEMS - ADULT Constitutional: reports: [place]. denies: fever Eyes: reports: no symptoms reported Ears, Nose, Mouth & Throat: reports: no symptoms reported Cardiovascular: reports: no symptoms reported Respiratory: reports: cough, dyspnea on exertion, shortness of breath, wheezing Gastrointestinal: reports: no symptoms reported Genitourinary: reports: no symptoms reported Musculoskeletal: reports: muscle aches Integumentary: reports: no symptoms reported Neurological: reports: no symptoms reported Psychiatric: reports: no symptoms reported Endocrine: reports: no symptoms reported Hematologic/Lymphatic: reports: no symptoms reported Allergic/Immunologic: reports: no symptoms reported Past History - Adult - PAST MEDICAL HISTORY-ADULT Review of Records: reports: Nursing Assessment Review Major Childhood Illnesses: reports: denies history Cardiovascular: reports: denies history Respiratory: reports: denies history Gastrointestinal: reports: GERD Obstetrical/Gynecological: reports: other (hysterectomy) Genitourinary: reports: denies history Musculoskeletal: reports: denies history Neurological: reports: denies history Psychiatric: reports: depression Endocrine/Immune: reports: other (hypothyroidism) Other Conditions: reports: denies history - PRIOR SURGERIES/PROCEDURES Surgical/Procedure History: reports: cholecystectomy, hysterectomy - IMMUNIZATION STATUS Childhood Immunizations: See Nurse Assessment Flu Vaccine: See Nurse Assessment - FAMILY HISTORY Family History: reviewed, not pertinent Physical Exam-General - PHYSICAL EXAM-ADULT Initial Vital Signs Reviewed: Yes - CONSTITUTIONAL General Appearance: alert, moderate distress - EYES Eyes: PERRL/EOMI, pink conjunctivae - HEAD, EARS, NOSE, MOUTH & THROAT HENMT: normocephalic/atraumatic, moist mucous membranes - NECK Neck: non-tender, supple - RESPIRATORY Respiratory: respiratory distress, rhonchi, wheezing, increased rate - CARDIOVASCULAR Cardiovascular: tachycardia - GASTROINTESTINAL (ABDOMEN) Abdominal Exam: non tender, soft, no organomegaly - LYMPHATIC Lymphatic: no adenopathy - MUSCULOSKELETAL Back Exam: normal inspection, no CVA tenderness, no vertebral tenderness Extremity: non-tender, normal inspection, no pedal edema, other (CYANOSIS FINGERS BOTH HANDS) Peripheral Pulses: radial (R): 3+, radial (L): 3+ - SKIN Integumentary: normal turgor, warm/dry - NEUROLOGIC Neurologic: grossly normal, no motor/sensory deficits - PSYCHIATRIC Psych/Mental Status: oriented x 3, anxious Progress - PLAN OF CARE/RESULTS Progress/Plan/Lab Results: Vital Signs - 8 hr 10/10/19 08:54 10/10/19 08:55 10/10/19 10:30 Temperature 98.1 F Pulse Rate 119 H 110 H 116 H Respiratory Rate 35 H 20 36 H Blood Pressure 125/54 109/31 O2 Sat by Pulse Oximetry 98 99 99 10/10/19 11:30 10/10/19 12:30 Temperature Pulse Rate 122 H 104 H Respiratory Rate 30 H 23 Blood Pressure 149/92 151/77 O2 Sat by Pulse Oximetry 100 100 Laboratory Results - last 24 hr 10/10/19 10/10/19 10/10/19 08:53 09:25 09:30 WBC RBC Hgb Hct MCV MCH MCHC RDW Std Deviation Plt Count MPV Neut % (Auto) Lymph % (Auto) [place] % (Auto) Eos % (Auto) Baso % (Auto) Neut # (Auto) Lymph # (Auto) [place] # (Auto) Eos # (Auto) Baso # (Auto) Segmented Neutrophils Lymphocytes Monocytes PT INR PTT (Actin FS) Specimen Type ARTERIAL Sample Site R BRACHIAL pH 7.49 H pCO2 39 pO2 136 H HCO3 29.5 H Base Excess 5.9 H Oxyhemoglobin 96.6 ABG O2 Sat (Calculated) 18.3 ABG O2 Saturation 99.6 ABG Carboxyhemoglobin 2.00 ABG Methemoglobin 1.0 Frankie Test NO A-a O2 Difference 129.0 Total Hemoglobin 13.3 Lactate 1.30 Liter Flow 6.0 Blood Gas Modality CANNULA FiO2 % 44.0 Sodium Potassium Chloride Carbon Dioxide Anion Gap BUN Creatinine Estimated GFR/1.73 m2 BUN/Creatinine Ratio Glucose POC Glucose 60 L Calculated Osmolality Calcium Total Bilirubin AST ALT Alkaline Phosphatase Creatine Kinase Troponin T High Sens Gdz-[id number]-Xyyaisirppc Pept Total Protein Albumin Globulin Albumin/Globulin Ratio Plasma Lactate 1.1 10/10/19 10/10/19 10/10/19 10:30 10:30 10:30 WBC 10.38 RBC 4.08 L Hgb 12.7 Hct 38.6 MCV 94.6 MCH 31.1 H MCHC 32.9 L RDW Std Deviation 16.0 H Plt Count 204 MPV 9.6 Neut % (Auto) 78.4 H Lymph % (Auto) 10.3 L [place] % (Auto) 9.7 H Eos % (Auto) 1.3 Baso % (Auto) 0.3 Neut # (Auto) 8.13 H Lymph # (Auto) 1.07 L [place] # (Auto) 1.01 H Eos # (Auto) 0.14 Baso # (Auto) 0.03 Segmented Neutrophils 78 H Lymphocytes 15 L Monocytes 7 PT INR PTT (Actin FS) Specimen Type Sample Site pH pCO2 pO2 HCO3 Base Excess Oxyhemoglobin ABG O2 Sat (Calculated) ABG O2 Saturation ABG Carboxyhemoglobin ABG Methemoglobin Frankie Test A-a O2 Difference Total Hemoglobin Lactate Liter Flow Blood Gas Modality FiO2 % Sodium 139 Potassium 3.5 Chloride 98 Carbon Dioxide 27 Anion Gap 14 BUN 15 Creatinine 0.9 Estimated GFR/1.73 m2 > 60 BUN/Creatinine Ratio 17 Glucose 133 H POC Glucose Calculated Osmolality 280 Calcium 8.7 L Total Bilirubin 0.51 AST 17 ALT 15 Alkaline Phosphatase 87 Creatine Kinase 37 Troponin T High Sens Onb-D-Aauwjpnlpou Pept 5397 H Total Protein 5.8 L Albumin 3.1 L Globulin 2.7 Albumin/Globulin Ratio 1.1 Plasma Lactate 10/10/19 10/10/19 10:30 10:30 WBC RBC Hgb Hct MCV MCH MCHC RDW Std Deviation Plt Count MPV Neut % (Auto) Lymph % (Auto) [place] % (Auto) Eos % (Auto) Baso % (Auto) Neut # (Auto) Lymph # (Auto) [place] # (Auto) Eos # (Auto) Baso # (Auto) Segmented Neutrophils Lymphocytes Monocytes PT 13.4 INR 1.01 PTT (Actin FS) 30.6 Specimen Type Sample Site pH pCO2 pO2 HCO3 Base Excess Oxyhemoglobin ABG O2 Sat (Calculated) ABG O2 Saturation ABG Carboxyhemoglobin ABG Methemoglobin Frankie Test A-a O2 Difference Total Hemoglobin Lactate Liter Flow Blood Gas Modality FiO2 % Sodium Potassium Chloride Carbon Dioxide Anion Gap BUN Creatinine Estimated GFR/1.73 m2 BUN/Creatinine Ratio Glucose POC Glucose Calculated Osmolality Calcium Total Bilirubin AST ALT Alkaline Phosphatase Creatine Kinase Troponin T High Sens 62 H Zje-I-Jmlnzwabghx Pept Total Protein Albumin Globulin Albumin/Globulin Ratio Plasma Lactate Orders Category Date Time Status Admit - [facility] Routine AdmDCTranf 10/10/19 13:17 Active Cardiac Monitoring NOW Care 10/10/19 09:38 Active IV Insertion NOW Care 10/10/19 09:38 Completed Notify Provider of NEWS Score NOW Care 10/10/19 09:38 Active Saline Loc NOW Care 10/10/19 09:03 Active Regular Diet Diet 10/10/19 13:07 Active CHEST-PORTABLE [RAD] Stat Exams 10/10/19 09:[address] HEAD W/O CONTRAST [CT] Stat Exams 10/10/19 09:45 Completed ABG [RESP] Routine Lab 10/10/19 09:25 Completed BLOOD CULTURE [BLDCUL] Stat Lab 10/10/19 10:30 Results CBC WITH DIFF [HEME] Stat Lab 10/10/19 10:30 Completed CK PROFILE [SP CHEM] Stat Lab 10/10/19 10:30 Completed COMPREHENSIVE METABOLIC PANEL [CHEM] Stat Lab 10/10/19 10:30 Completed LACTATE, PLASMA [CHEM] Lab 10/10/19 14:29 Completed LACTATE, PLASMA [CHEM] Lab 10/10/19 15:45 Ordered LACTATE, PLASMA [CHEM] Q3H Lab 10/10/19 09:30 Completed PRO B-NATRIURETIC PEPTIDE Stat Lab 10/10/19 10:30 Completed PROTIME WITH INR [COAG] Stat Lab 10/10/19 10:30 Completed PTT [COAG] Stat Lab 10/10/19 10:30 Completed TROPONIN T HIGH SENSITIVITY Stat Lab 10/10/19 10:30 Completed URINALYSIS W/POSS RFLX CULT [URINALYSIS] Stat Lab 10/10/19 14:26 Completed Albuterol 2.5MG/Ipratrop 0.5MG [Duoneb (A & A)] Med 10/10/19 09:03 Discontinued 3 ml INH NOW ONE CefTRIAXONE [Rocephin] 1 gm Med 10/10/19 09:03 Discontinued 0.9% Sodium Chloride Inj [Ns] 50 ml IV NOW Furosemide [Lasix] Med 10/10/19 12:56 Discontinued 40 mg IV NOW ONE Methylprednisolone Sod Succ [Solu-Medrol] Med 10/10/19 09:03 Discontinued 125 mg IV NOW ONE Aerosol Treatments Routine Oth 10/10/19 09:05 Completed Aerosol Treatments Stat Oth 10/10/19 09:05 Completed O2 Per Protocol Stat Oth 10/10/19 09:38 Completed Oxygen Device Routine Oth 10/10/19 13:18 Completed Pulse Oximetry Stat Oth 10/10/19 09:03 Completed EKG [EKG] Stat Ther 10/10/19 08:58 Draft Transfer/Admit Order [TRANSFER] Routine Transfer 10/10/19 13:18 Completed Result Diagrams: 10/10/19 10:30 10/10/19 10:30 - EKG 1 Time of EKG reading by physician:: 08:58 EKG Read and Signed by:: Luisa Araya EKG Interpretation (*Must complete 3 of following elements*): Abnormal (left anterior fascicular block; possible Lateral infarct, age undetermined) Rate: 127 Rhythm: Sinus Tachycardia QRS: RBB (incomplete), other (PAC's) FL Interval: normal ST Wave: normal - CONSULTS/PCP/HOSPITALIST Notification #1 *Consult/PCP/Hospitalist*: DR WARREN Time Discussed: 13:21 Consult Disposition: Admit (WANT ADMISSION TO [facility] AND HE WILL SEE PATIENT THERE) Departure - Departure Date of Disposition Decision: 10/10/19 Time of Disposition Decision: 13:19 DIAGNOSIS: Respiratory distress Disposition: ADMITTED INPATIENT 09 Certified Medical Emergency: Emergent Condition: Good - Critical Care Note This patient required my direct & personal management of CC.: No Attestation - Physician/ TENNILLE Attestation Patient care was provided by Advanced Practice Provider:: No The physician spent face to face time with patient:: Yes Advanced Practice Provider documentation review:: Supervising physician onsite and consulted in the evaluation and care of this patient. The physician did have a face to face encounter with the patient.
[2019-10-10 09:30] LABS: ALLEN TEST NO; BE 5.9 mmoll (-3.0-3.0); BLOOD TYPE ARTERIAL; HCO3-(ACT) 29.5 mmoll (20.0-26.0); O2(CT) 18.3 mL/dL (15.0-23.0); O2HB 96.6 % (95.0-99.0); PCO2(98.6) 39 mmHg (35-45); PO2(98.6) 136 mmHg (60-100); SAMPLE BLOOD; SAO2 99.6 % (95.0-100.0); THB 13.3 g/dL (11.5-17.4); pH(98.6) 7.49 (7.35-7.45)
[2019-10-10 09:31] LABS: MODALITY CANNULA
--- NOTE | 2019-10-10 10:16 | Diag Imaging Result Doc PS360 ---
EXAM: CHEST-PORTABLE 10/10/2019 HISTORY: cough TECHNIQUE: AP portable at 0950 COMMENT: There is ill-defined opacity particularly in the right middle and lower lobes. The left hemidiaphragm is elevated. There is shift of some of the mediastinal contents to the right. Compared to 10/02/2019 there is denser opacification of the right middle lobe. IMPRESSION: Pulmonary edema and/or pneumonia slightly worse than on 10/02/2019. Electronically signed by Henrry Buchanan 10/10/2019 10:13 AM
--- NOTE | 2019-10-10 10:55 | Diag Imaging Result Doc PS360 ---
EXAM: CT HEAD W/O CONTRAST INDICATION: altered mental status, dilated pupils TECHNIQUE: This exam was performed using automated exposure control, adjustment of mA or kV according to patient size, and/or use of iterative reconstruction technique. COMPARISON: 04/14/2017 FINDINGS: There is no definite acute infarct given the limited sensitivity of CT versus MRI. There is no discrete intracranial mass, mass effect, or intracranial hemorrhage. The surrounding soft tissues and bony structures are essentially unremarkable. IMPRESSION: No evidence of acute intracranial pathology. Electronically signed by Alex Vega 10/10/2019 10:52 AM
[2019-10-10 11:05] LABS: INR 1.01; PROTIME 13.4 Seconds (11.0-16.0)
[2019-10-10 11:06] LABS: PTT 30.6 Seconds (22.3-41.8)
[2019-10-10 11:10] LABS: BASO# 0.03 X1000 (0.0-0.2); BASO% 0.3 % (0.0-0.8); EOS# 0.14 X1000 (0.0-0.7); EOS% 1.3 % (0.0-10.0); HEMATOCRIT 38.6 % (37.0-47.0); HEMOGLOBIN 12.7 g/dL (12.0-16.0); LYMPH# 1.07 X1000 (1.2-3.4); LYMPH% 10.3 % (20.5-51.1); MCH 31.1 PG (27-31); MCHC 32.9 g/dL (33-37); MCV 94.6 FL (81-99); MONO# 1.01 X1000 (0.11-0.59); MONO% 9.7 % (1.7-9.3); MPV 9.6 FL (7.4-10.4); NEUT# 8.13 X1000 (1.4-6.5); NEUT% 78.4 % (42.2-75.2); PLT 204 X1000 (130-400); RBC 4.08 XMIL (4.2-5.4); WBC 10.38 X1000 (4.8-10.8)
[2019-10-10 11:20] LABS: AGAP 14; ALB/GLOB RATIO 1.1; ALBUMIN 3.1 g/dL (3.5-5.0); ALKALINE PHOSPHATASE 87 U/L (32-104); BUN 15 mg/dL (8-22); CALCIUM 8.7 mg/dL (8.8-10.2); CHLORIDE 98 mmol/L (98-107); CK PROFILE 37 U/L (24-173); COSMO 280; CREATININE 0.9 mg/dL (0.5-0.9); ESTIMATED GFR > 60; GLUCOSE 133 mg/dL (70-104); GOT 17 U/L (10-30); GPT 15 U/L (10-36); POTASSIUM 3.5 mmol/L (3.5-5.1); SODIUM 139 mmol/L (136-145); TCO2 27 mmol/L (25-35); TOTAL BILIRUBIN 0.51 mg/dL (0.20-1.00); TOTAL PROTEIN 5.8 g/dL (6.3-8.3)
[2019-10-10 11:34] LABS: LYMPHS 15 % (21-51); MONO 7 % (1-9); SEGS 78 % (42-75)
--- NOTE | 2019-10-10 12:21 | EKG Report ---
Test Performed on : 10/10/2019 08:58:36 AM Test Reason : SOB/AMS Blood Pressure : / mmHG Vent. Rate : 127 BPM Atrial Rate : 127 BPM P-R Int : 144 ms QRS Dur : 110 ms QT Int : 340 ms P-R-T Axes : 062 -73 -09 degrees QTc Int : 494 ms Sinus tachycardia. with premature atrial complexes. Incomplete right bundle branch block Left anterior fascicular block Possible Lateral infarct (cited on or before 28-SEP-2019) Abnormal ECG When compared with ECG of 30-SEP-2019 15:52, premature atrial complexes. are now present Vent. rate has increased BY 56 BPM T wave inversion now evident in Anterior leads Unconfirmed Result
[2019-10-10] MEDS ORDERED: LASIX IV ONE (12:56)
[2019-10-10 14:38] LABS: URINE SOURCE CATH
[2019-10-10 14:47] LABS: BILIRUBIN URINE NEGATIVE (NEGATIVE); BLOOD URINE SMALL (NEGATIVE); COLOR YELLOW; GLUCOSE URINE NEGATIVE (NEGATIVE); KETONE URINE NEGATIVE (NEGATIVE); LEUKOCYTES URINE LARGE (NEGATIVE); NITRITE URINE NEGATIVE (NEGATIVE); PH URINE 5.5; PROTEIN URINE 30 mg/dL (NEGATIVE); SP GRAVITY URINE 1.018; TURBIDITY URINE HAZY (CLEAR); UROBILINOGEN URINE NORMAL (NORMAL)
[2019-10-10 14:54] LABS: UR EPITHELIAL CELLS <10 /HPF (<10); URINE BACTERIA 3+ /HPF; URINE RBC <10 /HPF (<10); URINE WBC TNTC /HPF (<10)
[2019-10-10 14:59] LABS: URINE CASTS NONE SEEN; URINE CRYSTALS NONE SEEN; URINE SMALL ROUND CELLS NONE SEEN; URINE YEAST NONE SEEN
[2019-10-10] MEDS ORDERED: MIRALAX PO PRN (17:16)
[2019-10-10] MEDS ORDERED: AYR NASAL SPRAY NAS PRN (17:16)
[2019-10-10] MEDS ORDERED: MYCOSTATIN POWDER TOP PRN (17:16)
[2019-10-10] MEDS ORDERED: TYLENOL PO PRN (17:16)
[2019-10-10] MEDS ORDERED: VANCOMYCIN IV PER PHARMACY MISC SCH (17:30)
[2019-10-10] MEDS: LOVENOX SUBQ SCH (18:15)
[2019-10-10] MEDS: ZOSYN 3.375 GM in NS 50 ML IV SCH (18:15)
[2019-10-10] MEDS: SOLU-MEDROL IV SCH (18:15)
--- NOTE | 2019-10-10 19:46 | HISTORY AND PHYSICAL ---
PRIMARY CARE PHYSICIAN: Dr. Clyde Villegas. CHIEF COMPLAINT: Profound shortness of breath. HISTORY OF PRESENT ILLNESS: A 69-year-old white female with a complicated past medical history presents for evaluation of above-mentioned symptoms. Pertinent history of present illness began on September 02. At that time, patient presented to the emergency department with fevers, chills, and shortness of breath. Full evaluation was pursued. Chest x-ray returned consistent with bilateral bronchopneumonia. Patient was admitted to the hospital for further evaluation and management. Initially, patient was placed on broad-spectrum antibiotics and bronchodilators. Unfortunately, despite this aggressive intervention as well as pulmonary toilet, her condition continued to decline. Dr. Rodriguez was consulted. Patient was placed on BiPAP therapy. Despite continued aggressive intervention, symptoms progressively declined. Sedimentation rate returned elevated. CRP returned grossly elevated. For this reason, a steroid therapy was initiated. After steroids were initiated, patient's overall condition very slowly improved. The patient was treated with aggressive pulmonary intervention, steroids, and antibiotics for multiple days while hospitalized. Ultimately, antibiotics were discontinued. Patient was transitioned to oral steroids. On 10/03/2018 it was felt patient had reached maximum benefit while hospitalized. She was transferred to rehabilitation. Initially, patient states she did reasonably well. Unfortunately, after approximately 3 to 4 days of rehabilitation, she and her family chose to return home secondary to inability for family to visit while in rehabilitation. Since home, her condition continued to decline. Initially, she developed cough and congestion on Tuesday. Since that time, she has developed profound shortness of breath, wheezing, and weakness. She has had chills but no fevers. Cough is productive of a purulent sputum. Because of her progressive illness, patient presented to the emergency department this morning. Full evaluation was pursued. Chest x-ray suggested chronic pulmonary fibrosis with worsening of edema versus pneumonia. The patient will be admitted to the hospital for full evaluation and management of hypoxic respiratory failure in the setting of bilateral bronchopneumonia and pulmonary fibrosis. Of note, while hospitalized recently, patient also developed atrial fibrillation with rapid ventricular response. Multiple medications were attempted, but ultimately sotalol was found to be most effective. She denies palpitations or chest discomfort at present time. PAST MEDICAL HISTORY: 1. Progressive osteoarthritis of bilateral knees. 2. Multiple nevi. 3. Fibrocystic breast disease, status post bilateral mastectomies followed by implant reconstruction in 1988 and revision in 2008. 4. Bilateral cataract removal in . 5. Acute on chronic cholecystitis, status post cholecystectomy in 1974. 6. Chronic pain/fibromyalgia. 7. Constipation. 8. History of a cystocele, status post surgical intervention in 2018. 9. Depression. 10. Chronic lower extremity dermatitis. 11. Reflux disease. 12. Hypothyroidism. 13. Chronic low back pain. 14. Macular degeneration. 15. Menopause. 16. Migraine headaches. 17. History of tobacco use, 2 packs per day for 24 years, but stopped in 1988. 18. Diffuse osteoarthritis. 19. Anxiety. 20. History of peptic ulcer disease in the . 21. Colonic polyps. 22. Prehypertension. 23. History of pyelonephritis. 24. History of an angiomyolipoma per CT scan in 2009. 25. Chronic shortness of breath, initially diagnosed associated with amiodarone use. 26. History of right shoulder dislocation in 1970. 27. Atrial fibrillation. 28. Uterine prolapse, status post IGGY in 1974. CURRENT MEDICATIONS: 1. Acetaminophen 650 mg every 4 hours as needed. 2. Acyclovir 400 mg daily. 3. Buspirone 20 mg in the morning, 10 mg at lunch and 20 mg in the evening. 4. Cyclobenzaprine 10 mg at bedtime. 5. Dicyclomine 10 mg 3 times daily with meals. 6. Diltiazem ER 120 mg at bedtime. 7. Duloxetine 60 mg twice daily. 8. Estradiol 1 mg daily. 9. Famotidine 20 mg daily. 10. Anne 180 mg at bedtime. 11. Fluticasone nasal spray 2 sprays each nostril twice daily. 12. Lasix 40 mg daily. 13. Gabapentin 300 mg 3 times daily at 9 a.m., 1 p.m., and 9 p.m. 14. Ipratropium bromide every 6 hours while awake. 15. Xopenex 0.63 mg every 6 hours while awake. 16. Culturelle 1 capsule twice daily. 17. Levothyroxine 112 mcg daily. 18. Nystatin powder as needed. 19. Ditropan XL 10 mg daily. 20. Pantoprazole 40 mg daily. 21. MiraLAX 17 g in 8 ounces of juice daily as needed. 22. Prednisone 40 mg daily. 23. Saline nasal spray as needed. 24. Sotalol 80 mg twice daily. 25. Imitrex injection every 12 hours as needed. 26. Topamax 50 mg at bedtime. 27. Tramadol 50 mg every 6 hours as needed. ALLERGIES: Patient states she is allergic to Cipro which causes nausea/vomiting/diarrhea, Lortab which causes nausea/vomiting diarrhea, Lyrica which causes blurred vision, morphine which causes nausea/vomiting/diarrhea, Savella which causes lower extremity edema, and Valium which causes confusion. SOCIAL HISTORY: The patient smoked 2 packs per day for 24 years. She stopped in 1988. She denies alcohol or illicit drug use. She is a retired nurse from [employer]. She enjoys her grandchildren. She does not exercise routinely. FAMILY HISTORY: Patient's father passed at age 88 secondary to complications of aspiration pneumonia. He had a history of dysphagia and weight loss prior to his suggesting possible GI malignancy. He also had a history of hypertension. Patient's mother passed at age 88 secondary to aspiration pneumonia. She had a history of dementia and hypertension. REVIEW OF SYSTEMS: A 12 point review of systems was performed. Pertinent positives and negatives are noted in history present illness. PHYSICAL EXAMINATION: VITAL SIGNS: Temperature 98.4 degrees, heart rate 98, respirations 25, blood pressure is 131/56. GENERAL: Chronically ill appearing, no acute distress. HEENT: Normocephalic, atraumatic. Pupils equal, round, reactive to light. Extraocular muscles intact. Sclerae anicteric. Bonesteel conjunctivae. Oral and nasopharynx clear without exudate. NECK: Supple. No lymphadenopathy. No thyromegaly. No bruits auscultated. CARDIOVASCULAR: Regular rate and rhythm. No significant murmurs, rubs, or gallops. PULMONARY: Crackles at bilateral bases extending approximately 2/3 of the lung field, mild increased work of breathing. ABDOMEN: Soft, nontender, nondistended. Positive bowel sounds. EXTREMITIES: Moves all extremities well. No significant clubbing, cyanosis, or edema. NEUROLOGIC: Cranial nerves 2 through 12 grossly intact. Motor and sensory grossly intact. PSYCHOLOGIC: Examination is appropriate. LABORATORY DATA: White blood cell count 10.38, hemoglobin 12.7, hematocrit 38.6 platelet count 204,000, PT 13.4, INR is 1.01. PTT 30.6, pH 7.49, pCO2 39, PO2 136, bicarbonate 29.5. Sodium 139, potassium 3.5, chloride 98, bicarb 27, BUN 15, creatinine 0.9 glucose 133. Calcium 8.9, total bilirubin 0.51, total protein 5.8, albumin 3.1, alkaline phosphatase 87, AST 17, ALT 15, CK total 37, troponin 62, proBNP 5397. Urinalysis revealed small blood, large leukocytes, 3+ bacteria. Chest x-ray revealed pulmonary edema and/or pneumonia slightly worse than 10/02/2019. ASSESSMENT AND PLAN: A 69-year-old white female with a complicated past medical history presents for evaluation of profound shortness of breath. The patient was noted to be in considerable respiratory distress upon arrival in the emergency department. Chest x-ray suggested pulmonary edema versus pneumonia. The patient was provided a dose of Rocephin, IV Solu-Medrol and IV Lasix in the emergency department. The patient's condition has improved although not back to baseline. Patient will be admitted to the home hospital for full evaluation and management of hypoxic respiratory failure with associated bilateral bronchopneumonia in the setting of pulmonary fibrosis. 1. Admit to PVC unit. 2. Hypoxic respiratory failure-from the patient's recent hospitalization, this likely represents a bilateral bronchopneumonia/pulmonary edema in the setting of pulmonary fibrosis. Additionally, patient was noted to have significantly elevated inflammatory markers while hospitalized, suggesting a possible inflammatory cause. The patient has been started on broad- spectrum antibiotics, steroids, and bronchodilators. Oxygen therapy will be provided per protocol. Sputum cultures and blood cultures have been drawn. 3. Bilateral bronchopneumonia-as above, this likely is the etiology, especially in the setting of a purulent sputum production. We will start patient on Zosyn and vancomycin therapy. We will consult Dr. Rodriguez. We will check sputum and blood cultures. We will encourage aspiration precautions and incentive spirometry. We will continue pulmonary toilet. 4. Pulmonary fibrosis-patient has underlying disease, quite concerning. We will continue to treat patient's acute illness with anticipation long-term evaluation for pulmonary fibrosis may be warranted. 5. Paroxysmal atrial fibrillation 6. Possible urinary tract infection-patient has too many to count white blood cells and 3+ bacteria per urinalysis. We will start patient on broad-spectrum antibiotics as noted. We will send urine for culture. She denies significant symptoms currently. 7. Paroxysmal atrial fibrillation-we will continue patient on her home medications for now. We will follow patient on telemetry. At this point, the risk of full anticoagulation outweighs the benefits in the setting of significant pulmonary injury and risk for pulmonary hemorrhage. 8. Hypothyroidism-we will continue patient on levothyroxine replacement. 9. Depression/anxiety/chronic pain-we will continue patient on duloxetine and gabapentin therapy. Tramadol has been held as it does interact with the sotalol therapy. 10. Cutaneous Opal-we will resume topical nystatin. 11. Profound weakness-unfortunately, this persists. Patient will likely require long-term physical therapy/rehabilitation. We will resume this while hospitalized as soon as clinically stable. 12. Fluids, electrolytes, nutrition. We will monitor electrolytes. Saline lock IV. Regular diet. 13. Prophylaxis. Patient will be placed on subcu Lovenox. cc: Clyde Villegas MD
[2019-10-10] MEDS: ATROVENT NEB INH SCH ×2 (19:55→23:50)
[2019-10-10] MEDS: XOPENEX NEB INH SCH ×2 (19:55→23:50)
[2019-10-10] MEDS ORDERED: VANCOMYCIN 1,900 MG in NS 500 ML IV ONE (20:00)
[2019-10-10] MEDS: ALLEGRA PO SCH (21:52)
[2019-10-10] MEDS: FLEXERIL PO SCH (21:52)
[2019-10-10] MEDS: TOPAMAX PO SCH (21:52)
[2019-10-10] MEDS: CYMBALTA PO SCH (21:52)
[2019-10-10] MEDS: CARDIZEM LA PO SCH (21:52)
[2019-10-10] MEDS: MYCOSTATIN SUSP PO SCH (21:52)
[2019-10-10] MEDS: PROTONIX [NONFORMULARY] PO SCH (21:53)
[2019-10-10] MEDS: BUSPAR PO SCH (21:53)
[2019-10-10] MEDS: FLONASE NAS SCH (21:53)
[2019-10-10] MEDS: NEURONTIN PO SCH (21:53)
[2019-10-10] MEDS: CULTURELLE PO SCH (21:53)
[2019-10-10] MEDS: BETAPACE PO SCH (21:53)
--- NOTE | 2019-10-10 22:11 | PULMONOLOGY CONSULTATION ---
DATE: 10/10/2019 REQUESTING CLINICIAN: Clyde Villegas MD REASON FOR CONSULTATION: Respiratory failure. HISTORY OF PRESENT ILLNESS: Ms. Garcia is a 69-year-old white female who has been followed by an outside hydropulper for pulmonary fibrosis. The patient was admitted to the hospital from 09/02/2019 until 10/04/2019 with acute respiratory failure and acute bilateral pulmonary infiltrates. Etiology for the acute decompensation was not evident but could have been related to an exacerbation of her pulmonary fibrosis, an acute infectious insult, or an aspiration event. Clinically, she appeared to have ARDS with slow clinical improvement. The patient was discharged to a rehab facility. Unfortunately, with the current COVID-19 pandemic, the facility was locked down to visitors. Family was concerned about the number of staff present and decided to take her home. The patient has had progressive decline in presented to the emergency room with profound shortness of breath with some worsening of infiltrates at the right mid and right lung base. The patient does report some cough and sputum production. She has dyspnea with minimal exertion. She has no appetite. She is having difficulty with painful swallowing. PAST MEDICAL HISTORY: 1. Pulmonary fibrosis as per above. The patient's fibrosis appeared mild prior to this acute decompensation. 2. Raynaud phenomenon with negative connective tissue evaluation. 3. Fibromyalgia. 4. Depressive disorder. 5. Macular degeneration. 6. Status post cholecystectomy. 7. Chronic constipation. 8. Osteoarthritis. 9. Intermittent atrial fibrillation. 10. Herpetic eye infection, currently on acyclovir. 11. Migraine headaches. 12. Hiatal hernia. SOCIAL HISTORY: Patient smoked 2 packs a day for 24 years. She has not smoked for several years. No alcohol use. FAMILY HISTORY: Positive for dementia, hypertension and aspiration pneumonia in both the mother and the father. REVIEW OF SYSTEMS: Notable for profound fatigue, decreased appetite, painful swallowing, dyspnea, generalized weakness. PHYSICAL EXAMINATION: General: Reveals a chronically ill-appearing female with overt cyanosis to her hands. Vital signs: Blood pressure 124/82, heart: regular without murmurs. respiratory rate 33, oxygen saturation 100% on 6 L per nasal cannula. HEENT: Pupils are equal and reactive. Oropharynx appears clear. Neck: Supple. Chest: Reveals coarse rhonchi and crackles bilaterally. Cardiac Exam: Increased rate, regular rhythm. Abdomen: Soft. Extremities: Reveal cyanosis in the hands consistent with Raynaud phenomenon. LABORATORIES: White blood count 10.38, hemoglobin 12.7, platelet count 204,000. Arterial blood gas on 6 L reveals a pH of 7.49, pCO2 of 39, pO2 of 136. Sodium 139, potassium 3.5, chloride 98, bicarbonate 27, BUN 15, creatinine 0.9. ProBNP is elevated at 5379. IMAGING: Chest x-ray reveals increased consolidation or edema at the right mid lung zone. IMPRESSION: A 69-year-old with: 1. Acute on chronic hypoxemic respiratory failure. 2. Dyspnea at rest. 3. Dysphagia. 4. Severe deconditioning. 5. Worsening parenchymal infiltrates. RECOMMENDATIONS: 1. Agree with current antibiotic regimen. 2. Agree with sputum for C and S. 3. We will initiate nystatin swish and swallow for probable candidiasis. 4. Consider barium swallow after she has received several more days of nystatin. 5. Initiate physical therapy. 6. Continue reflux precautions. 7. Continue current steroid dose. 8. Long-term prognosis is guarded. cc: MD Clyde Donohue MD MTDD
[2019-10-11] MEDS: SOLU-MEDROL IV SCH ×3 (00:57→17:08)
[2019-10-11] MEDS: ZOSYN 3.375 GM in NS 50 ML IV SCH ×5 (00:57→23:37)
[2019-10-11] MEDS: BENTYL PO SCH ×4 (05:43→17:08)
[2019-10-11] MEDS: SYNTHROID PO SCH ×2 (05:43→06:08)
[2019-10-11] MEDS: BUSPAR PO SCH ×3 (05:44→21:00)
[2019-10-11 05:45] LABS: BASO# 0.02 X1000 (0.0-0.2); BASO% 0.3 % (0.0-0.8); HEMATOCRIT 37.5 % (37.0-47.0); HEMOGLOBIN 11.8 g/dL (12.0-16.0); IMM GRAN# 0.08 X1000 (0.0-0.04); LYMPH# 0.55 X1000 (1.2-3.4); MCH 30.3 PG (27-31); MCHC 31.5 g/dL (33-37); MCV 96.2 FL (81-99); MONO# 0.58 X1000 (0.11-0.59); MONO% 7.4 % (1.7-9.3); MPV 9.7 FL (7.4-10.4); NEUT# 6.64 X1000 (1.4-6.5); NEUT% 84.3 % (42.2-75.2); PLT 216 X1000 (130-400); RDW 15.9 % (11.5-14.5); WBC 7.87 X1000 (4.8-10.8)
[2019-10-11 06:16] LABS: AGAP 14; ALB/GLOB RATIO 0.9; ALBUMIN 2.9 g/dL (3.5-5.0); ALKALINE PHOSPHATASE 92 U/L (32-104); BUN 17 mg/dL (8-22); CALCIUM 8.1 mg/dL (8.8-10.2); CHLORIDE 99 mmol/L (98-107); COSMO 285; CREATININE 0.9 mg/dL (0.5-0.9); ESTIMATED GFR > 60; GLUCOSE 143 mg/dL (70-104); GOT 13 U/L (10-30); GPT 13 U/L (10-36); POTASSIUM 3.6 mmol/L (3.5-5.1); SODIUM 141 mmol/L (136-145); TCO2 28 mmol/L (25-35); TOTAL BILIRUBIN 0.36 mg/dL (0.20-1.00); TOTAL PROTEIN 6.1 g/dL (6.3-8.3)
[2019-10-11 06:49] LABS: SED RATE 93 mm/hr (0-20)
[2019-10-11] MEDS: ATROVENT NEB INH SCH ×5 (08:59→23:40)
[2019-10-11] MEDS: XOPENEX NEB INH SCH ×5 (08:59→23:35)
[2019-10-11] MEDS: ESTRACE PO SCH (09:49)
[2019-10-11] MEDS: DITROPAN XL PO SCH (09:50)
[2019-10-11] MEDS: NEURONTIN PO SCH ×3 (09:50→20:59)
[2019-10-11] MEDS: CULTURELLE PO SCH ×2 (09:50→20:59)
[2019-10-11] MEDS: BETAPACE PO SCH ×2 (09:50→20:59)
[2019-10-11] MEDS: ZOVIRAX PO SCH (09:50)
[2019-10-11] MEDS: PEPCID PO SCH (09:50)
[2019-10-11] MEDS: MYCOSTATIN SUSP PO SCH ×4 (09:50→20:59)
[2019-10-11] MEDS: CYMBALTA PO SCH ×2 (09:50→21:00)
[2019-10-11] MEDS: FLONASE NAS SCH ×2 (09:50→21:00)
[2019-10-11] MEDS ORDERED: LASIX IV ONE (11:06)
[2019-10-11] MEDS ORDERED: CALMOSEPTINE OINTMENT TOP PRN (16:03)
[2019-10-11] MEDS: LOVENOX SUBQ SCH (17:09)
--- NOTE | 2019-10-11 19:34 | PROGRESS NOTE ---
DATE: 10/11/2019 SUBJECTIVE: Upon my arrival, patient was sitting upright in bed. Overnight, the patient states that she did have some difficulty with cough, congestion, and shortness of breath. This morning, she is somewhat improved from that time. She denies fevers, chills, nausea, vomiting, or chest discomfort. P.o. intake is marginal. Energy level remains very low. OBJECTIVE: Vital signs: T-max of 98.8 degrees, heart rate 68 to 76, respirations 17 to 33, blood pressure 94 to 131 over 55 to 66. General: Chronically ill appearing, no acute distress. Cardiovascular: Regular rate and rhythm. No significant murmurs, rubs, or gallops. Pulmonary: Crackles bilateral bases extending to 2/3 of lung field on the right and prison on the left. Occasional wheeze. Abdomen: Soft, nontender, nondistended. Positive bowel sounds. Extremities: Moves all extremities well. No significant clubbing, cyanosis, or edema. Dermatologic: Evaluation reveals no evidence of rash. LABORATORY DATA: White blood cell count 7.87, hemoglobin 11.8, hematocrit 37.5, platelet counts 216,000. Sodium 141, potassium 3.6, chloride 99, bicarb 28, BUN 17, creatinine 0.9, glucose 143, calcium 8.1, total bilirubin 0.36, total protein is 6.1, albumin 2.9, alkaline phosphatase 92. AST 13, ALT 13. Sedimentation rate 93, CRP 125.29. Urine culture thus far has a gram-negative mary. Sputum culture has a gram-negative mary. ASSESSMENT AND PLAN: 1. Hypoxic respiratory failure - This is likely secondary to underlying bilateral bronchopneumonia/pulmonary edema. We will treat each of these as below. Overall, oxygenation is improving. We will continue oxygen per protocol. 2. Bilateral bronchopneumonia - Sputum culture suggests a gram-negative mary. For now, we will continue both Zosyn and vancomycin until definitive diagnosis is made. We will continue incentive spirometry and aspiration precautions. Should we will continue incentive spirometry, aspiration precautions, and pulmonary toilet. 3. Volume overload - The patient was treated with IV Lasix this morning. We will continue to diurese as necessary. 4. Pulmonary fibrosis - Underlying disease remains of concern. With a significantly elevated CRP and sedimentation rate, the question is raised as to an inflammatory etiology. We will follow. We will continue treatment as described above with the addition of steroids. We will follow with Dr. Rodriguez. 5. Paroxysmal atrial fibrillation - The patient is in a sinus-generated rhythm at the present time. We will continue sotalol and diltiazem therapy. 6. Urinary tract infection - Urine cultures suggest a gram-negative mary as well. We will continue broad-spectrum antibiotics as noted. 7. Hypothyroidism - We will continue the patient on levothyroxine replacement. 8. Depression/anxiety/chronic pain - The patient is treated with duloxetine and gabapentin. We will follow this. 9. Cutaneous Opal - We will continue topical nystatin. 10. Profound weakness - We will continue physical therapy as tolerated. 11. Disposition. At this point, the patient continues to require [facility] care in a hospital setting. We will plan discharge home once appropriate. cc: Clyde Villegas MD
[2019-10-11] MEDS ORDERED: VANCOMYCIN 1,600 MG in NS 250 ML IV SCH (20:00)
[2019-10-11] MEDS: PROTONIX [NONFORMULARY] PO SCH (20:59)
[2019-10-11] MEDS: CARDIZEM LA PO SCH (20:59)
[2019-10-11] MEDS: FLEXERIL PO SCH (20:59)
[2019-10-11] MEDS: ALLEGRA PO SCH (20:59)
[2019-10-11] MEDS: TOPAMAX PO SCH (21:00)
--- NOTE | 2019-10-11 21:41 | PULMONOLOGY PROGRESS NOTE ---
DATE: 10/11/2019 SUBJECTIVE: The patient is awake, alert, and conversant. She feels better today. OBJECTIVE: Vital Signs: The patient has been afebrile for the last 24 hours. Blood pressure 120/67, heart rate 77, respiratory rate 17, oxygen saturation 100% on 4 L per cannula. HEENT: Pupils are equal and reactive. Oropharynx appears clear. Neck: Supple. Chest: Reveals decreased breath sounds right base. Cardiac: S1-S2. Abdomen: Soft. Extremities: Without edema. LABORATORIES: Sputum culture is growing a gram-negative mary. Urine culture is growing a gram- negative mary. White blood count 7.87, hemoglobin 11.8, platelet count 216,000. C-reactive protein 125. IMPRESSION: A 69-year-old with: 1. Background pulmonary fibrosis. 2. Gram-negative pneumonia. 3. Dysphagia. 4. Severe deconditioning. 5. Dyspnea at rest. PLAN: 1. Continue current antibiotics pending results of culture data. 2. Consider barium swallow with clinical improvement. 3. Continue physical therapy. 4. Continue reflux precautions. 5. Continue current steroid dosing. cc: MD Clyde Donohue MD
[2019-10-12] MEDS: SOLU-MEDROL IV SCH ×3 (00:30→16:41)
[2019-10-12] MEDS: ZOSYN 3.375 GM in NS 50 ML IV SCH ×3 (05:42→16:41)
[2019-10-12] MEDS: BENTYL PO SCH ×4 (05:42→16:41)
[2019-10-12] MEDS: SYNTHROID PO SCH ×2 (05:42→06:36)
[2019-10-12] MEDS: BUSPAR PO SCH ×3 (05:42→20:58)
[2019-10-12 06:31] LABS: CALCIUM 8.8 mg/dL (8.8-10.2); POTASSIUM 3.7 mmol/L (3.5-5.1)
[2019-10-12] MEDS: XOPENEX NEB INH SCH ×5 (08:29→23:20)
[2019-10-12] MEDS: NEURONTIN PO SCH ×3 (08:46→20:57)
[2019-10-12] MEDS: FLONASE NAS SCH ×2 (08:47→20:58)
[2019-10-12] MEDS: ZOVIRAX PO SCH (08:47)
[2019-10-12] MEDS: CYMBALTA PO SCH ×2 (08:47→20:57)
[2019-10-12] MEDS: CULTURELLE PO SCH ×2 (08:47→20:58)
[2019-10-12] MEDS: BETAPACE PO SCH ×2 (08:47→20:58)
[2019-10-12] MEDS: PEPCID PO SCH (08:47)
[2019-10-12] MEDS: ESTRACE PO SCH (08:47)
[2019-10-12] MEDS: MYCOSTATIN SUSP PO SCH ×4 (08:47→20:57)
[2019-10-12] MEDS: DITROPAN XL PO SCH (08:47)
[2019-10-12] MEDS: ATROVENT NEB INH SCH ×5 (09:18→23:20)
[2019-10-12] MEDS: LOVENOX SUBQ SCH (16:41)
[2019-10-12] MEDS ORDERED: LASIX IV ONE (17:13)
--- NOTE | 2019-10-12 17:37 | PROGRESS NOTE ---
DATE: 10/12/2019 SUBJECTIVE: Upon my arrival this morning, patient was sitting upright in bed receiving a breathing treatment. Overall, patient remains very weak, but breathing is improved from admission. She continues to require supplemental oxygen. In this quite fatigued with any exertion. Cough and congestion is present but decreasing. Sputum cultures returned positive for pseudomonas. Urine culture returned positive for Enterobacter cloacae. She currently denies fevers, chills, nausea, vomiting, or chest discomfort. She continues to have some dysphagia. OBJECTIVE: T-max 98.3 heart rate 61 to 70, respirations 14 to 22, blood pressure 102-116/67- 96.General: Chronically ill appearing, no acute distress. Cardiovascular: Regular rate and rhythm. No significant murmurs, rubs, or gallops. Pulmonary: Crackles at bilateral bases extending up 2/3 of the lung field on the right and assisted on the left. No significant wheezing. Improving air movement. Abdomen: Soft, nontender, nondistended. Positive bowel sounds. Extremities: Moves all extremities well. No significant clubbing, cyanosis, or edema. Dermatologic: Evaluation reveals no evidence of rash. LABORATORY DATA: Sodium 141, potassium 3.7, chloride 98, bicarb 31, BUN 23, creatinine 1.0, glucose 141, calcium 8.8. ASSESSMENT AND PLAN: 1. Hypoxic respiratory failure-this likely is secondary to a combination of bronchopneumonia/pulmonary edema in the setting of chronic pulmonary fibrosis. We will treat each as noted below. Overall, symptoms are improving. 2. Bilateral bronchopneumonia-sputum culture returned positive for pseudomonas. We will discontinue vancomycin but continue Zosyn therapy. We will encourage incentive spirometry and strict aspiration precautions. 3. Volume overload-the patient was treated with IV Lasix yesterday. We will retreat today. We will follow this. 4. Pulmonary fibrosis-the patient has underlying disease. CRP and sedimentation rate returned significantly elevated, questioning whether this is inflammatory or infectious. We will continue treatment as described above for infection. We will continue steroids for possible inflammation. 5. Urinary tract infection-urine culture grew Enterobacter cloacae. This is sensitive to Zosyn as well. We will continue this. 6. Paroxysmal atrial fibrillation-patient is in a sinus-generated rhythm today. She is treated with sotalol and diltiazem therapy. She is not a candidate for full anticoagulation secondary to concern for pulmonary hemorrhage. We will continue prophylactic dosing. 7. Hypothyroidism-we will continue patient on levothyroxine replacement. 8. Depression/anxiety/chronic pain-we will continue duloxetine and gabapentin therapy. Symptoms are controlled. 9. Cutaneous Opal-we will continue as needed topical nystatin. 10. Profound weakness-physical therapy has been initiated. We will continue this as tolerated. 11. Disposition. At this point, patient continues to require [facility] care in a hospital setting. We will plan discharge home once appropriate. cc: Clyde Villegas MD
[2019-10-12] MEDS: PROTONIX [NONFORMULARY] PO SCH (20:58)
[2019-10-12] MEDS: FLEXERIL PO SCH (20:58)
[2019-10-12] MEDS: TOPAMAX PO SCH (20:58)
[2019-10-12] MEDS: ALLEGRA PO SCH (20:58)
[2019-10-12] MEDS: CARDIZEM LA PO SCH (20:58)
[2019-10-13] MEDS: SOLU-MEDROL IV SCH ×3 (00:29→16:45)
[2019-10-13] MEDS: ZOSYN 4.5 GM in NS 100 ML IV SCH ×4 (00:29→20:58)
--- NOTE | 2019-10-13 04:15 | PULMONOLOGY PROGRESS NOTE ---
DATE: 10/12/2019 SUBJECTIVE: The patient is awake, alert, and conversant. She reports increased cough and sputum production. Appetite remains spotty. OBJECTIVE: Vital Signs: The patient has been afebrile for the last 24 hours. BP 134/67, heart rate 83, respiratory rate 27, oxygen saturation 100% on 4 L per nasal cannula. HEENT: Pupils are equal and reactive. Oropharynx is clear. Neck: Supple. Chest: Reveals decreased breath sounds right base with scattered rhonchi. She has crackles bilaterally. Cardiac: S1- S2. Abdomen: Soft. Extremities: Reveal trace edema. LABORATORIES: Sputum culture reveals Pseudomonas aeruginosa. Urine culture reveals Enterobacter cloacae complex. IMPRESSION: A 69-year-old with: 1. Gram-negative pneumonia. Pseudomonas has been identified. 2. Pulmonary fibrosis. 3. Dysphagia. 4. Urinary tract infection. 5. Dyspnea. 6. Severe deconditioning. 7. Anorexia. PLAN: 1. I agree with discontinuing vancomycin. Zosyn will be continued but dosing will be increased for pseudomonal coverage. 2. Continue physical therapy. 3. Continue current steroids. 4. Continue reflux precautions. cc: MD Clyde Donohue MD
[2019-10-13] MEDS: BENTYL PO SCH ×4 (05:43→16:45)
[2019-10-13] MEDS: TYLENOL PO PRN (05:43)
[2019-10-13] MEDS: SYNTHROID PO SCH ×2 (05:43→06:22)
[2019-10-13] MEDS: BUSPAR PO SCH ×3 (05:44→20:59)
[2019-10-13 07:07] LABS: CALCIUM 8.7 mg/dL (8.8-10.2); CREATININE 1.1 mg/dL (0.5-0.9); POTASSIUM 3.8 mmol/L (3.5-5.1)
[2019-10-13] MEDS: XOPENEX NEB INH SCH ×5 (08:01→22:54)
[2019-10-13] MEDS: ATROVENT NEB INH SCH ×5 (08:02→22:54)
[2019-10-13] MEDS: ESTRACE PO SCH (08:54)
[2019-10-13] MEDS: BETAPACE PO SCH ×2 (08:54→20:59)
[2019-10-13] MEDS: CULTURELLE PO SCH ×2 (08:54→20:59)
[2019-10-13] MEDS: ZOVIRAX PO SCH (08:54)
[2019-10-13] MEDS: PEPCID PO SCH (08:54)
[2019-10-13] MEDS: MYCOSTATIN SUSP PO SCH ×4 (08:55→20:58)
[2019-10-13] MEDS: FLONASE NAS SCH ×2 (08:55→21:03)
[2019-10-13] MEDS: NEURONTIN PO SCH ×3 (08:55→20:58)
[2019-10-13] MEDS: DITROPAN XL PO SCH (08:55)
[2019-10-13] MEDS: CYMBALTA PO SCH ×2 (08:55→20:58)
--- NOTE | 2019-10-13 16:13 | PROGRESS NOTE ---
DATE: 10/13/2019 SUBJECTIVE: Upon my arrival, patient was sleeping in her chair. Upon waking, patient states she was doing reasonably well. From a pulmonary standpoint, she does continue to have cough and congestion, although this has decreased. From an energy standpoint, patient states she has persistent low energy. She does note increasing somnolence during the day as well. Urinary symptoms remain stable. Patient denies fevers, chills, nausea, vomiting, chest pains or palpitations. Upon discussing this with her current nurse, patient has had some intermittent but self-limiting confusion. No focal neurologic abnormalities have been identified. OBJECTIVE: T-max 98.3 degrees, heart rate 56 to 65, respirations 16 to 25, blood pressure 89 to 134 over 52 to 74.General: No acute distress. Cardiovascular: Regular rhythm, slightly bradycardic. No significant murmurs, rubs, or gallops. Pulmonary: Crackles bilateral lower lung minor extending approximately skilled nursing up the lung field. Adequate air movement. Abdomen: Soft, nontender, nondistended. Positive bowel sounds. Extremities: Moves all extremities well. No significant clubbing, cyanosis, or edema. Dermatologic: Evaluation reveals no evidence of rash. LABORATORY DATA: None. ASSESSMENT AND PLAN: 1. Hypoxic respiratory failure-overall, patient is demonstrating slow but gradual improvement. We will continue treatment of bilateral bronchopneumonia and volume overload as described below. 2. Bilateral bronchopneumonia-sputum culture returned positive for pseudomonas. Vancomycin has been discontinued. Zosyn will be continued. We will continue incentive spirometry, aspiration precautions, and IV steroids. We will treat volume as described below. 3. Volume overload-patient was treated with intravenous Lasix yesterday. BUN and creatinine are both slightly increased from yesterday. We will give patient a diuretic holiday today. We will follow. 4. Urinary tract infection-urine culture grew Enterobacter cloacae. She is being treated successfully with Zosyn therapy. 5. Somnolence-patient does demonstrate some somnolence today. Question is raised as to possible medication associated in the setting of slight decrease in renal clearance. We will decrease patient's gabapentin to 100 mg 3 times daily. We will decrease cyclobenzaprine to 5 mg at bedtime. We will follow this and determine if further adjustments are necessary. At this point, no neurologic deficits are identified. 6. Pulmonary fibrosis-patient has underlying disease. We will plan further evaluation as an outpatient once her acute illness has been stabilized. 7. Paroxysmal atrial fibrillation-patient remains in a sinus-generated rhythm on diltiazem and sotalol therapy. We will follow patient on telemetry. 8. Hypothyroidism-we will continue levothyroxine replacement. 9. Depression/anxiety/chronic pain-we will continue duloxetine, but decrease gabapentin as noted. Symptoms are controlled at present time. 10. 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 11. Profound weakness-we will continue physical therapy. 12. Disposition-at this point, patient continues to require jail care in a hospital setting. We will plan discharge home once appropriate. cc: Clyde Villegas MD
[2019-10-13] MEDS: LOVENOX SUBQ SCH (16:45)
[2019-10-13] MEDS: ALLEGRA PO SCH (20:58)
[2019-10-13] MEDS: PROTONIX [NONFORMULARY] PO SCH (20:59)
[2019-10-13] MEDS: FLEXERIL PO SCH (20:59)
[2019-10-13] MEDS: TOPAMAX PO SCH (20:59)
[2019-10-13] MEDS: CARDIZEM LA PO SCH (20:59)
[2019-10-13] MEDS ORDERED: NEURONTIN PO SCH (21:00)
--- NOTE | 2019-10-13 21:51 | PULMONOLOGY PROGRESS NOTE ---
DATE: 10/13/2019 SUBJECTIVE: The patient is awake and alert. She has a weak cough which is less productive. She is fatigued but without other complaints. OBJECTIVE: Vital Signs: The patient has been afebrile for the last 24 hours. Blood pressure 115/50, heart rate 57, respiratory rate 20, oxygen saturation 100%. HEENT: Pupils are equal. Oropharynx appears clear. Neck: Supple. Chest: Reveals rhonchi predominantly on the right with bilateral crackles midway from the lung bases. Cardiac: S1, S2. Abdomen: Soft. Extremities: Without edema. LABORATORIES: Microbiology reveals no new data. IMPRESSION: A 69-year-old with: 1. Pulmonary fibrosis. 2. Gram-negative pneumonia due to Pseudomonas. 3. Dysphagia. 4. Urinary tract infection. 5. Severe deconditioning. 6. Dyspnea. 7. Anorexia. PLAN: 1. Continue current treatments. 2. Continue physical therapy. 3. Chest x-ray follow up tomorrow. cc: MD Clyde Donohue MD
[2019-10-14] MEDS: SOLU-MEDROL IV SCH ×3 (01:44→17:27)
[2019-10-14] MEDS: ZOSYN 4.5 GM in NS 100 ML IV SCH ×5 (01:44→20:25)
[2019-10-14] MEDS: BENTYL PO SCH ×3 (06:07→17:27)
[2019-10-14] MEDS: BUSPAR PO SCH ×3 (06:07→20:26)
[2019-10-14] MEDS: SYNTHROID PO SCH (06:07)
[2019-10-14 06:18] LABS: BASO# 0.08 X1000 (0.0-0.2); BASO% 0.7 % (0.0-0.8); HEMATOCRIT 37.1 % (37.0-47.0); HEMOGLOBIN 11.4 g/dL (12.0-16.0); IMM GRAN# 0.51 X1000 (0.0-0.04); IMM GRAN% 4.5 % (0.0-0.5); LYMPH# 0.64 X1000 (1.2-3.4); LYMPH% 5.7 % (20.5-51.1); MCH 29.7 PG (27-31); MCHC 30.7 g/dL (33-37); MCV 96.6 FL (81-99); MONO% 5.3 % (1.7-9.3); MPV 9.9 FL (7.4-10.4); NEUT# 9.49 X1000 (1.4-6.5); NEUT% 83.8 % (42.2-75.2); PLT 287 X1000 (130-400); RBC 3.84 XMIL (4.2-5.4); RDW 15.4 % (11.5-14.5); WBC 11.32 X1000 (4.8-10.8)
[2019-10-14 07:01] LABS: AGAP 13; ALB/GLOB RATIO 1.1; ALBUMIN 3.1 g/dL (3.5-5.0); ALKALINE PHOSPHATASE 78 U/L (32-104); BUN 27 mg/dL (8-22); CALCIUM 8.8 mg/dL (8.8-10.2); CHLORIDE 97 mmol/L (98-107); COSMO 293; CREATININE 0.9 mg/dL (0.5-0.9); ESTIMATED GFR > 60; GLUCOSE 145 mg/dL (70-104); GOT 25 U/L (10-30); GPT 30 U/L (10-36); POTASSIUM 3.6 mmol/L (3.5-5.1); SODIUM 143 mmol/L (136-145); TCO2 33 mmol/L (25-35); TOTAL BILIRUBIN 0.33 mg/dL (0.20-1.00); TOTAL PROTEIN 5.9 g/dL (6.3-8.3)
[2019-10-14] MEDS: XOPENEX NEB INH SCH ×5 (08:01→22:44)
[2019-10-14] MEDS: ATROVENT NEB INH SCH ×4 (08:01→22:43)
--- NOTE | 2019-10-14 09:05 | Diag Imaging Result Doc PS360 ---
CHEST-PORTABLE - 10/14/2019 INDICATION: dyspnea COMPARISON: 10/10/2019 FINDINGS: There is been slight decrease in the density of the infiltrate throughout the right lung. Stable severely low lung volumes. No new infiltrates. IMPRESSION: Slight improvement in aeration of the right lung. Electronically signed by Dejon Rossi 10/14/2019 9:03 AM
[2019-10-14] MEDS: BETAPACE PO SCH ×2 (09:13→20:26)
[2019-10-14] MEDS: DITROPAN XL PO SCH (09:13)
[2019-10-14] MEDS: MYCOSTATIN SUSP PO SCH ×4 (09:13→20:26)
[2019-10-14] MEDS: CULTURELLE PO SCH ×2 (09:13→20:26)
[2019-10-14] MEDS: PEPCID PO SCH (09:13)
[2019-10-14] MEDS: CYMBALTA PO SCH ×2 (09:14→20:26)
[2019-10-14] MEDS: FLONASE NAS SCH ×2 (09:14→20:26)
[2019-10-14] MEDS: ZOVIRAX PO SCH (09:14)
[2019-10-14] MEDS: ESTRACE PO SCH (09:14)
[2019-10-14] MEDS: NEURONTIN PO SCH ×3 (09:15→20:26)
[2019-10-14] MEDS ORDERED: LASIX IV ONE (16:11)
--- NOTE | 2019-10-14 16:29 | PROGRESS NOTE ---
DATE: 10/14/2019 SUBJECTIVE: Upon my arrival this morning, the patient was sitting upright in her chair. She was much more alert. She demonstrated no evidence of confusion. Over the course of the last 24 hours, she notes some shortness of breath and fatigue, but slightly improved from previous. She denies fevers, chills, nausea, vomiting, or chest discomfort. OBJECTIVE: T-max 97.8 degrees, heart rate 56 to 63, respirations 18 to 22, blood pressure is 93- 135/56-79. General: Well-nourished, well-developed. No acute distress. Cardiovascular: Regular rate and rhythm. No significant murmurs, rubs, or gallops. Pulmonary: Crackles at bilateral bases extending up to the mid lung minor. Adequate air movement. Abdomen: Soft, nontender, nondistended. Positive bowel sounds. Extremities: Moves all extremities well. No significant clubbing, cyanosis, or edema. Dermatologic: Evaluation reveals no evidence of rash. Laboratory Data: White blood cell count 11.32, hemoglobin 11.4, hematocrit 37.1, platelet count is 287,000. Sodium 143, potassium 3.6, chloride 97, bicarb 33, BUN 27, creatinine 0.9, glucose 145, calcium 8.8. Total bilirubin 0.33, total protein 5.9, albumin 3.1, alkaline phosphatase 78, AST 25, ALT 30. ASSESSMENT AND PLAN: 1. Hypoxic respiratory failure-patient is demonstrating a very slow improvement. We will continue treatment of bilateral bronchopneumonia and volume overload as described below. 2. Bilateral bronchopneumonia-sputum culture returned positive for pseudomonas. We will continue Zosyn and encourage incentive spirometry and aspiration precautions. I appreciate Dr. Rodriguez's consultation. 3. Volume overload-patient has been treated with intravenous Lasix intermittently while hospitalized. We will re-treat today. We will follow. 4. Urinary tract infection-urine culture returned positive for Enterobacter cloacae. We will continue Zosyn therapy as described. 5. Somnolence-yesterday, patient's gabapentin and cyclobenzaprine were decreased. She is much more alert today. We will follow for now. 6. Pulmonary fibrosis-patient has underlying disease. Once her acute illness has stabilized, we will consider further evaluation and management of her underlying pulmonary fibrosis. 7. Paroxysmal atrial fibrillation-the patient remains in a sinus-generated rhythm. She is treated successfully with diltiazem and sotalol therapy. 8. Hypothyroidism-we will continue patient on levothyroxine replacement. 9. Depression/anxiety/chronic pain-symptoms are reasonably controlled with duloxetine and gabapentin therapy. We will continue this. 10. Cutaneous trinh-we will continue patient on topical nystatin. 11. Profound weakness-we will continue physical therapy. Once energy level has improved, we will consider discharge home. 12. Disposition-at this point, patient continues to require assisted care in a hospital setting. We will plan discharge home once appropriate. cc: Clyde Villegas MD
[2019-10-14] MEDS: LOVENOX SUBQ SCH (17:27)
[2019-10-14] MEDS: CARDIZEM LA PO SCH (20:25)
[2019-10-14] MEDS: PROTONIX [NONFORMULARY] PO SCH (20:26)
[2019-10-14] MEDS: TOPAMAX PO SCH (20:26)
[2019-10-14] MEDS: ALLEGRA PO SCH (20:26)
[2019-10-14] MEDS: FLEXERIL PO SCH (20:26)
--- NOTE | 2019-10-14 21:16 | PULMONOLOGY PROGRESS NOTE ---
DATE: 10/14/2019 SUBJECTIVE: The patient is awake and alert. She is conversant. She reports generalized weakness. She denies significant shortness of breath at rest. OBJECTIVE: Vital Signs: The patient has been afebrile for the last 24 hours. Blood pressure is 135/71, heart rate is 62, respiratory rate is 22, oxygen saturation is 96% on nasal cannula. HEENT: Pupils are equal and reactive. Oropharynx appears clear. Neck: Supple. Chest: Reveals crackles bilaterally. Cardiac: S1, S2. Abdomen: Soft. Extremities: Without edema. LABORATORY DATA: White blood count 8.32, hemoglobin 11.4, platelet count 287,000. Sodium 143, potassium 3.6, chloride 97, bicarbonate 33, BUN 27, creatinine 0.9. IMAGING: Chest x-ray reveals improvement in the right mid to lower lung minor with persistent increased markings bilaterally. IMPRESSION: A 69-year-old with: 1. Gram-negative pneumonia due to Pseudomonas. 2. Urinary tract infection. 3. Pulmonary fibrosis. 4. Dysphagia. 5. Dyspnea. 6. Severe deconditioning. PLAN: 1. Continue current antibiotic regimen. 2. Continue physical therapy. 3. Re-evaluate CRP in the next few days to see if steroids can be decreased. cc: MD Clyde Donohue MD
[2019-10-15] MEDS: SOLU-MEDROL IV SCH ×3 (02:39→17:45)
[2019-10-15] MEDS: ZOSYN 4.5 GM in NS 100 ML IV SCH ×4 (02:39→20:22)
[2019-10-15] MEDS: BENTYL PO SCH ×3 (06:07→17:44)
[2019-10-15] MEDS: SYNTHROID PO SCH (06:07)
[2019-10-15] MEDS: BUSPAR PO SCH ×3 (06:08→20:25)
[2019-10-15 06:28] LABS: C REACTIVE PROT QUANT 6.02 mg/L (0.00-5.00); CALCIUM 8.8 mg/dL (8.8-10.2); POTASSIUM 3.4 mmol/L (3.5-5.1)
[2019-10-15] MEDS: ATROVENT NEB INH SCH ×4 (08:09→19:59)
[2019-10-15] MEDS: XOPENEX NEB INH SCH ×4 (08:09→19:59)
[2019-10-15] MEDS: DITROPAN XL PO SCH (09:56)
[2019-10-15] MEDS: BETAPACE PO SCH ×2 (09:57→20:24)
[2019-10-15] MEDS: CULTURELLE PO SCH ×2 (09:57→20:24)
[2019-10-15] MEDS: MYCOSTATIN SUSP PO SCH ×4 (09:57→20:26)
[2019-10-15] MEDS: CYMBALTA PO SCH ×2 (09:57→20:24)
[2019-10-15] MEDS: NEURONTIN PO SCH ×3 (09:57→20:24)
[2019-10-15] MEDS: ESTRACE PO SCH (09:58)
[2019-10-15] MEDS: PEPCID PO SCH (09:58)
[2019-10-15] MEDS: ZOVIRAX PO SCH (09:58)
[2019-10-15] MEDS: FLONASE NAS SCH ×2 (10:05→20:29)
[2019-10-15] MEDS: TYLENOL PO PRN (10:11)
[2019-10-15] MEDS ORDERED: KLOR-CON PO ONE (10:14)
[2019-10-15] MEDS: IMITREX SUBQ SUBQ PRN (10:52)
[2019-10-15] MEDS: LOVENOX SUBQ SCH (17:45)
--- NOTE | 2019-10-15 19:17 | PROGRESS NOTE ---
DATE: 10/15/2019 SUBJECTIVE: Upon my arrival this morning, patient was sitting upright in bed. The patient states she rested reasonably well overnight. She remains very interactive. She denies fevers, chills, nausea, vomiting, or chest discomfort. Energy level remains low. Her shortness of breath continues to slowly improve. OBJECTIVE: Vital Signs: Temperature maximum is 97.8, heart rate 57 to 62, respirations 18 to 22, blood pressure 108 to 131/65 to 76. General: No acute distress. Cardiovascular: Regular rate and rhythm. No significant murmurs, rubs, or gallops. Pulmonary: Crackles at bilateral bases extending to the mid lung minor. Adequate air movement. Abdomen: Soft, nontender, nondistended. Positive bowel sounds. Extremities: Moves all extremities well. No significant clubbing, cyanosis, or edema. Dermatologic: Evaluation reveals no evidence of rash. LABORATORY DATA: Sedimentation rate 75. Sodium 143, potassium 3.4, chloride 95, bicarb 35, BUN 27, creatinine 1.0, glucose 155, calcium 8.8, CRP 6.02. ASSESSMENT AND PLAN: 1. Hypoxic respiratory failure-the patient's condition is very slowly improving. We will continue treatment of bilateral bronchopneumonia and volume overload as described below. We will continue oxygen per protocol. 2. Bilateral bronchopneumonia-sputum culture returned positive for Pseudomonas. We will continue Zosyn therapy and encourage incentive spirometry and aspiration precautions. Symptoms are slowly improving. Sedimentation rate is trending downwards. 3. Volume overload-the patient was treated with intravenous Lasix yesterday. Today, she appears euvolemic. We will re-evaluate tomorrow. 4. Urinary tract infection-urine culture grew Enterobacter cloacae. We will continue Zosyn therapy. 5. Pulmonary fibrosis/pulmonary inflammation-the patient's bronchopneumonia is being treated as above. She is also being treated with steroids for a possible inflammatory process. As her CRP and sedimentation rate are trending downward, we will transition patient from Solu-Medrol to prednisone therapy. We will plan to recheck inflammatory markers in the near future. 6. Somnolence-patient has achieved improvement with decreasing gabapentin and cyclobenzaprine therapy. 7. Paroxysmal atrial fibrillation - The patient remains in a sinus-generated rhythm. She is treated successfully with diltiazem and sotalol therapy. Full anticoagulation is contraindicated in the setting of her significant lung disease and risk for pulmonary hemorrhage. 8. Hypothyroidism-we will continue patient on levothyroxine replacement. 9. Depression/anxiety/chronic pain-symptoms are reasonably stable with duloxetine and gabapentin therapy. 10. Cutaneous Opal-we will continue patient on topical nystatin. 11. Profound weakness- we will continue physical therapy. We will encourage activity. 12. Disposition- at this point, patient continues to require care home care in a hospital setting. We will plan discharge home once appropriate. cc: Clyde Villegas MD
[2019-10-15] MEDS: TOPAMAX PO SCH (20:23)
[2019-10-15] MEDS: ALLEGRA PO SCH (20:23)
[2019-10-15] MEDS: PROTONIX [NONFORMULARY] PO SCH (20:25)
[2019-10-15] MEDS: FLEXERIL PO SCH (20:25)
[2019-10-15] MEDS: CARDIZEM LA PO SCH ×2 (20:26→20:29)
--- NOTE | 2019-10-16 02:27 | PULMONOLOGY PROGRESS NOTE ---
DATE: 10/15/2019 SUBJECTIVE: The patient is awake and alert. She has a weak cough effort. She is without new complaints. OBJECTIVE: Vital Signs: The patient has been afebrile for the last 24 hours. Blood pressure is 133/77, heart rate is 55, respiratory rate is 16, oxygen saturation is 100% on 2 L per nasal cannula. HEENT: Pupils are equal and reactive. Oropharynx appears clear. Neck: Supple. Chest: Reveals crackles bibasilarly with occasional rhonchi. Cardiac: S1, S2. Abdomen: Soft. Extremities: Without edema. LABORATORY DATA: C-reactive protein has decreased to 6. Sodium 143, potassium 3.4, chloride 95, bicarbonate 35, BUN 27, creatinine 1.0. IMPRESSION: A 69-year-old with: 1. Gram-negative pneumonia. 2. Urinary tract infection. 3. Background pulmonary fibrosis. The patient did have an episode of ARDS/acute exacerbation of her pulmonary fibrosis during prior admission. She has had significant improvement in radiograph. 4. Dysphagia with concern for aspiration. 5. Dyspnea. 6. Severe deconditioning. PLAN: 1. Continue current antibiotics. 2. Continue physical therapy. 3. With near normalization of the CRP, would recommend transitioning her to prednisone 30 mg per day. I would then follow the C-reactive protein to see if further tapering could be achieved. cc: MD Clyde Donohue MD
[2019-10-16] MEDS: ZOSYN 4.5 GM in NS 100 ML IV SCH ×4 (02:32→19:52)
[2019-10-16] MEDS: ATROVENT NEB INH SCH ×7 (03:19→23:30)
[2019-10-16] MEDS: XOPENEX NEB INH SCH ×6 (03:19→23:30)
[2019-10-16] MEDS: BENTYL PO SCH ×3 (06:00→16:34)
[2019-10-16] MEDS: BUSPAR PO SCH ×4 (06:00→21:12)
[2019-10-16] MEDS: SYNTHROID PO SCH (06:00)
[2019-10-16] MEDS: MYCOSTATIN SUSP PO SCH ×5 (09:12→21:11)
[2019-10-16] MEDS: ESTRACE PO SCH (09:13)
[2019-10-16] MEDS: PEPCID PO SCH (09:13)
[2019-10-16] MEDS: BETAPACE PO SCH ×3 (09:13→21:12)
[2019-10-16] MEDS: DITROPAN XL PO SCH (09:13)
[2019-10-16] MEDS: ZOVIRAX PO SCH (09:13)
[2019-10-16] MEDS: CULTURELLE PO SCH ×3 (09:13→21:12)
[2019-10-16] MEDS: CYMBALTA PO SCH ×3 (09:14→21:12)
[2019-10-16] MEDS: PREDNISONE PO SCH (09:14)
[2019-10-16] MEDS: FLONASE NAS SCH ×2 (09:28→21:11)
[2019-10-16] MEDS: LASIX PO SCH (09:38)
[2019-10-16] MEDS: NEURONTIN PO SCH ×5 (09:38→21:11)
[2019-10-16] MEDS: LOVENOX SUBQ SCH (16:35)
--- NOTE | 2019-10-16 17:47 | PROGRESS NOTE ---
DATE: 10/16/2019 SUBJECTIVE: Upon my arrival this morning, patient was sitting upright in bed. She was noted to have minor confusion. She states she rested well overnight. P.o. intake remains adequate. She denies fevers, chills, nausea, or vomiting. Shortness of breath is present but improving. Energy level remains very low. OBJECTIVE: Vitals: T-max 97.6, heart rate 56 to 63, respirations 17 to 28, blood pressure 112 to 140/59 to 71. General: Chronically ill appearing, no acute distress. Cardiovascular: Regular rate and rhythm. No significant murmurs, rubs, or gallops. Pulmonary: Crackles at bilateral bases extending up midway lung minor bilaterally. Reasonable air movement. Abdomen: Soft, nontender, nondistended. Positive bowel sounds. Extremities: Moves all extremities well. No significant clubbing, cyanosis, or edema. Dermatologic: Evaluation reveals no evidence of rash. LABORATORY DATA: None. ASSESSMENT AND PLAN: 1. Hypoxic respiratory failure-overall, patient's symptoms are improving. We will continue oxygen per protocol and encourage incentive spirometry. We will treat bilateral bronchial pneumonia and volume as described below. 2. Bilateral bronchopneumonia-sputum culture returned positive for pseudomonas. Overall, clinically she is improving. We will continue Zosyn, bronchodilators, and encourage incentive spirometry. Sedimentation rate and CRP are trending downward. 3. Volume overload-the patient's volume status is reasonably controlled. We will start oral Lasix on a daily basis. We will follow this. 4. Urinary tract infection-urine culture grew Enterobacter cloacae. Patient is being treated with Zosyn therapy. 5. Pulmonary fibrosis/pulmonary inflammation-as above, patient's inflammatory markers are decreasing. We will continue treatment for underlying pneumonia as described above. Patient was transitioned from IV Solu-Medrol to prednisone this morning. We will follow this closely as well. We will plan to recheck inflammatory markers in 2 to 3 days. 6. Somnolence-the patient continues to have some intermittent somnolence. This likely is secondary to a combination of etiologies. We will continue gabapentin. We will discontinue cyclobenzaprine. We will follow this. 7. Paroxysmal atrial fibrillation-the patient remained in a sinus-generated rhythm, but we will continue diltiazem and sotalol therapy. I do not feel she is a good candidate for full anticoagulation in the setting of her significant lung disease and concern for possible pulmonary hemorrhage. 8. Hypothyroidism-we will continue patient on levothyroxine replacement. 9. Depression/anxiety/chronic pain-symptoms are reasonably stable with duloxetine and gabapentin therapy. 10. 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 Symptoms are controlled. 11. Profound weakness-unfortunately, this persists. We will continue physical therapy. As we transition to oral prednisone, we will need to determine if the patient will be a candidate for discharge home or to rehabilitation hospital. 12. Disposition-at this point, patient continues to require [facility] care in a hospital setting. We will plan discharge home once appropriate. cc: Clyde Villegas MD
[2019-10-16] MEDS: PROTONIX [NONFORMULARY] PO SCH ×2 (19:52→21:11)
[2019-10-16] MEDS: TOPAMAX PO SCH ×2 (19:53→21:11)
[2019-10-16] MEDS: CARDIZEM LA PO SCH ×2 (19:54→21:12)
[2019-10-16] MEDS: ALLEGRA PO SCH ×2 (19:54→21:12)
--- NOTE | 2019-10-16 23:37 | PULMONOLOGY PROGRESS NOTE ---
DATE: 10/16/2019 SUBJECTIVE: The patient is sitting up in the bed. She thinks she got out of bed today, but she cannot remember. She has a marginal cough effort but the cough is wet in character. OBJECTIVE: Vital Signs: The patient has been afebrile for the last 24 hours. Blood pressure 117/56, heart rate 62, respiratory rate 17, oxygen 97% on 3 L per nasal cannula. HEENT: Pupils are equal and reactive. Oropharynx appears clear. Neck: Supple. Chest: Reveals occasional rhonchi with forced cough and bibasilar crackles. Cardiac: S1-S2. Abdomen: Soft. Extremities: Reveal trace edema. IMPRESSION: A 69-year-old with 1. Gram-negative pneumonia. 2. Urinary tract infection. 3. Recent episodes of adult respiratory distress syndrome on the background of pulmonary fibrosis. 4. Dysphagia. 5. Dyspnea. 6. Deconditioning. PLAN: 1. Continue prednisone 30 mg each day. 2. Continue to encourage bronchial hygiene. 3. Continue antibiotics. 4. We will check a C-reactive protein tomorrow to make sure that the level does not escalate with change in steroids. cc: MD Clyde Donohue MD
[2019-10-17] MEDS: ZOSYN 4.5 GM in NS 100 ML IV SCH ×4 (02:54→22:42)
[2019-10-17] MEDS: BENTYL PO SCH ×4 (05:33→15:38)
[2019-10-17] MEDS: BUSPAR PO SCH ×4 (05:33→20:46)
[2019-10-17] MEDS: SYNTHROID PO SCH ×2 (05:33→06:06)
[2019-10-17 06:27] LABS: BASO# 0.13 X1000 (0.0-0.2); EOS# 0.05 X1000 (0.0-0.7); EOS% 0.4 % (0.0-10.0); HEMATOCRIT 38.7 % (37.0-47.0); HEMOGLOBIN 12.1 g/dL (12.0-16.0); IMM GRAN# 1.01 X1000 (0.0-0.04); IMM GRAN% 7.4 % (0.0-0.5); MCH 30.3 PG (27-31); MCHC 31.3 g/dL (33-37); MCV 96.8 FL (81-99); MONO# 0.61 X1000 (0.11-0.59); MONO% 4.5 % (1.7-9.3); MPV 9.4 FL (7.4-10.4); NEUT# 10.29 X1000 (1.4-6.5); NEUT% 75.7 % (42.2-75.2); PLT 382 X1000 (130-400); RDW 15.3 % (11.5-14.5); WBC 13.59 X1000 (4.8-10.8)
[2019-10-17 07:02] LABS: ALB/GLOB RATIO 1.2; ALBUMIN 3.1 g/dL (3.5-5.0); CALCIUM 9.1 mg/dL (8.8-10.2); POTASSIUM 3.9 mmol/L (3.5-5.1); TOTAL BILIRUBIN 0.36 mg/dL (0.20-1.00); TOTAL PROTEIN 5.7 g/dL (6.3-8.3)
[2019-10-17] MEDS: ATROVENT NEB INH SCH ×5 (08:52→23:45)
[2019-10-17] MEDS: XOPENEX NEB INH SCH ×5 (08:52→23:45)
[2019-10-17] MEDS: CYMBALTA PO SCH ×2 (10:58→20:46)
[2019-10-17] MEDS: BETAPACE PO SCH ×2 (10:58→20:45)
[2019-10-17] MEDS: MYCOSTATIN SUSP PO SCH ×4 (10:58→20:45)
[2019-10-17] MEDS: PEPCID PO SCH (10:58)
[2019-10-17] MEDS: NEURONTIN PO SCH ×3 (10:58→20:45)
[2019-10-17] MEDS: LASIX PO SCH (10:58)
[2019-10-17] MEDS: PREDNISONE PO SCH (10:58)
[2019-10-17] MEDS: FLONASE NAS SCH ×2 (10:59→20:46)
[2019-10-17] MEDS: CULTURELLE PO SCH ×2 (10:59→20:45)
[2019-10-17] MEDS: ZOVIRAX PO SCH (10:59)
[2019-10-17] MEDS: DITROPAN XL PO SCH (10:59)
[2019-10-17] MEDS: ESTRACE PO SCH (10:59)
[2019-10-17] MEDS: LOVENOX SUBQ SCH (17:31)
[2019-10-17] MEDS: ALLEGRA PO SCH (20:45)
[2019-10-17] MEDS: PROTONIX [NONFORMULARY] PO SCH (20:45)
[2019-10-17] MEDS: CARDIZEM LA PO SCH (20:45)
[2019-10-17] MEDS: TOPAMAX PO SCH (20:46)
[2019-10-18] MEDS: BENTYL PO SCH ×4 (05:44→16:42)
[2019-10-18] MEDS: SYNTHROID PO SCH ×2 (05:44→06:19)
[2019-10-18] MEDS: ZOSYN 4.5 GM in NS 100 ML IV SCH ×4 (05:44→23:08)
[2019-10-18] MEDS: BUSPAR PO SCH ×3 (05:44→20:35)
[2019-10-18] MEDS: XOPENEX NEB INH SCH ×5 (08:09→23:25)
[2019-10-18] MEDS: ATROVENT NEB INH SCH ×5 (08:09→23:25)
[2019-10-18] MEDS: NEURONTIN PO SCH ×3 (08:40→20:36)
[2019-10-18] MEDS: CULTURELLE PO SCH ×2 (08:40→20:36)
[2019-10-18] MEDS: BETAPACE PO SCH ×2 (08:40→20:36)
[2019-10-18] MEDS: FLONASE NAS SCH ×2 (08:40→20:34)
[2019-10-18] MEDS: MYCOSTATIN SUSP PO SCH ×4 (08:40→20:40)
[2019-10-18] MEDS: ESTRACE PO SCH (08:40)
[2019-10-18] MEDS: LASIX PO SCH (08:40)
[2019-10-18] MEDS: PREDNISONE PO SCH (08:40)
[2019-10-18] MEDS: ZOVIRAX PO SCH (08:40)
[2019-10-18] MEDS: PEPCID PO SCH (08:40)
[2019-10-18] MEDS: CYMBALTA PO SCH ×2 (08:40→20:35)
[2019-10-18] MEDS: DITROPAN XL PO SCH (08:40)
--- NOTE | 2019-10-18 13:54 | PROGRESS NOTE ---
DATE: 10/18/2019 Upon my arrival this morning, patient was sitting upright in a chair. Unfortunately, she was quite depressed. She stated that she wanted to go home, but understood the severity of her illness and her inability to assist with her care. Upon further discussion, patient stated she felt reasonably well. Her pulmonary status is largely unchanged p.o. intake is adequate. She denies fevers, chills, nausea, vomiting, or chest discomfort. As described, she remains very weak. OBJECTIVE: T-max 97.8, heart rate 58 to 73, respirations 14-19, blood pressure 92 to 135 over 57 to 71.General: No acute distress. Cardiovascular: Regular rate and rhythm. No significant murmurs, rubs, or gallops. Pulmonary: Crackles, bilateral bases extending 2/3 up the lung field on the right and mid lung field on the left. Abdomen: Soft, nontender, nondistended. Positive bowel sounds. Extremities: Moves all extremities well. No significant clubbing, cyanosis, or edema. Dermatologic: Evaluation reveals no evidence of rash. LABORATORY DATA: None. ASSESSMENT AND PLAN: 1. Hypoxic respiratory failure-oxygen requirements are decreasing. We will continue treatment of bilateral broncho pneumonia, volume overload, and inflammatory condition as described below. Patient is approaching acceptable time for discharge to rehabilitation. 2. Bilateral bronchopneumonia-sputum culture returned positive for pseudomonas. She is being treated with Zosyn therapy, bronchodilators, and steroids. Incentive spirometry has been recommended. Sedimentation rate and CRP are both trending downwards. 3. Volume overload - The patient appears to be dry on examination today. We will continue oral Lasix therapy. 4. Urinary tract infection-urine culture grew Enterobacter cloacae. She continues to be treated with Zosyn therapy. 5. Pulmonary fibrosis/pulmonary inflammation-inflammatory markers are trending downwards. The question is raised whether this is secondary to pulmonary inflammation or infection. We will continue treatment of infection as described above. The patient has been transitioned to prednisone therapy. We will plan further evaluation of underlying pulmonary fibrosis if and when her overall condition improves. 6. Transaminitis-patient has demonstrated a considerable transaminitis. I suspect this may be Zosyn related. Unfortunately, there are not any easy alternatives as levofloxacin interacts with her sotalol. We will recheck transaminases tomorrow. We will need to determine a plan for discharge medications in the near future. 7. Somnolence-patient continues to have some intermittent somnolence, likely secondary to medications. She has, however, achieved improvement with decreasing gabapentin and discontinuing cyclobenzaprine. We will follow this. 8. Paroxysmal atrial fibrillation - The patient remained in a sinus-generated rhythm with diltiazem and sotalol therapy. 9. Hypothyroidism-the patient will be continued on levothyroxine replacement. 10. Depression/anxiety/chronic pain-symptoms are reasonably controlled with duloxetine and gabapentin therapy. 11. 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 12. Profound weakness-patient continues physical therapy. Unfortunately, she continues to have considerable weakness and will likely require rehabilitation at discharge. 13. Disposition. At this point, patient continues to require detention care in a hospital setting. We will plan discharge home once appropriate. cc: Clyde Villegas MD
[2019-10-18] MEDS: LOVENOX SUBQ SCH (16:42)
--- NOTE | 2019-10-18 17:37 | PROGRESS NOTE ---
DATE: 10/17/2019 SUBJECTIVE: Upon my arrival, the patient was resting in bed. The patient was noted to have some minor confusion. She stated she felt reasonably well. She rested well overnight. She continues to have profound fatigue. Her shortness of breath remains stable. She denies fevers, chills, nausea, vomiting, shortness of breath, or chest discomfort. OBJECTIVE: T-max 97.9 degrees, heart rate 55 to 70, respirations 15 to 20, blood pressure 109- 144/56-73. General: No acute distress. Cardiovascular: Regular rate and rhythm. No significant murmurs, rubs, or gallops. Pulmonary: Crackles extending senior living up the left lung field and 2/3 up the right lung field. Adequate air movement. Abdomen: Soft, nontender, nondistended. Positive bowel sounds. Extremities: Moves all extremities well. No significant clubbing, cyanosis, or edema. Dermatologic: Evaluation reveals no evidence of rash. Laboratory Data: White blood cell count 13.59, hemoglobin 12.1, hematocrit 38.7, platelet count is 382,000. Sodium 143, potassium 3.9, chloride 95, bicarb 36, BUN 23, creatinine 1.0, glucose 73, calcium 9.1. Total bilirubin 0.36, total protein 5.7, albumin 3.1, alkaline phosphatase 67, AST 90, ALT 128. ASSESSMENT AND PLAN: 1. Hypoxic respiratory failure-symptoms continue to improve with treatment of bilateral bronchopneumonia, volume overload state, and underlying pulmonary inflammation/pulmonary fibrosis. We will continue to encourage incentive spirometry and oxygen per protocol. 2. Bilateral bronchopneumonia-sputum cultures grew pseudomonas. Clinically, she is improving. For now, we will continue Zosyn, bronchodilators, and encourage incentive spirometry. Sedimentation rate and CRP are trending downward. We will address transaminitis as described below. 3. Volume overload-the patient's volume status remains euvolemic. We will continue daily oral Lasix. 4. Urinary tract infection-urine culture grew Enterobacter cloacae. She is being treated successfully with Zosyn therapy. 5. Pulmonary fibrosis/pulmonary inflammation-inflammatory markers are improving with steroids. The patient is currently being treated with prednisone therapy. Thus far, she is tolerating it well. As an outpatient, she will likely require further evaluation of her underlying pulmonary fibrosis. 6. Somnolence-patient has achieved improvement with decreasing gabapentin and discontinuing cyclobenzaprine therapy. 7. Paroxysmal atrial fibrillation-the patient remains in a sinus-generated rhythm with diltiazem and sotalol therapy. At this point, she is not a good candidate for full anticoagulation secondary to her fall risk as well as risk for pulmonary hemorrhage in the setting of significant pulmonary disease. 8. Hypothyroidism-we will continue the patient on levothyroxine replacement. 9. Depression/anxiety/chronic pain-the patient is being treated with duloxetine and gabapentin therapy. Symptoms are reasonably stable. 10. Transaminitis-this is quite concerning. I suspect this may be secondary to Zosyn therapy. Unfortunately, there are not good alternatives to treatment. Levofloxacin would be the most reasonable choice; however, this interacts with sotalol therapy. For now, we will continue Zosyn and recheck liver enzymes in the next 24 to 48 hours. The benefits of treatment outweigh the risk currently. 11. 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 12. Profound weakness-unfortunately, this is a significant concern. We will continue physical therapy. She likely will require rehabilitation at discharge. 13. Disposition-at this point, the patient continues to require long-term care in a hospital setting. We will plan discharge home once appropriate. cc: Clyde Villegas MD
[2019-10-18] MEDS: PROTONIX [NONFORMULARY] PO SCH (20:35)
[2019-10-18] MEDS: CARDIZEM LA PO SCH (20:35)
[2019-10-18] MEDS: TOPAMAX PO SCH (20:36)
[2019-10-18] MEDS: ALLEGRA PO SCH (20:36)
--- NOTE | 2019-10-18 22:46 | PULMONOLOGY PROGRESS NOTE ---
DATE: 10/18/2019 SUBJECTIVE: The patient is awake and alert. She is currently sitting in a chair. She reports she has had a pretty good day. She has minimal sputum production. OBJECTIVE: Vital Signs: The patient has been afebrile for the last 24 hours. Blood pressure 126/66, heart rate 67, respiratory rate 18, oxygen saturation 100%. HEENT: Pupils are equal and reactive. Oropharynx appears clear. Neck: Supple. Chest: Bilateral crackles. Cardiac Exam: S1 and S2. Abdomen: Soft. Extremities: Trace to 1+ peripheral edema. LABORATORIES: Sodium 143, potassium 3.9, chloride 95, bicarbonate 36, BUN 23, creatinine 1.0, AST 90, ALT 128. C-reactive protein yesterday 4.35. IMPRESSION: A 69-year-old with: 1. Pulmonary fibrosis. 2. Gram-negative pneumonia. 3. Urinary tract infection. 4. Chronic depression. 5. Dysphagia. 6. Dyspnea. 7. Severe deconditioning. 8. Mild transaminitis. PLAN: 1. Continue prednisone 30 mg per day. Would recommend checking CRP in the next few days and do an additional dose reduction if possible. 2. Encourage bronchial hygiene. 3. Continue current antibiotics with followup chemistries. 4. Encourage mobilization. cc: MD Clyde Donohue MD
[2019-10-19] MEDS: ZOSYN 4.5 GM in NS 100 ML IV SCH (04:13)
[2019-10-19] MEDS: SYNTHROID PO SCH (06:19)
[2019-10-19] MEDS: BENTYL PO SCH ×3 (06:19→17:17)
[2019-10-19] MEDS: BUSPAR PO SCH ×3 (06:20→21:31)
[2019-10-19 06:36] LABS: AGAP 13; ALB/GLOB RATIO 0.9; ALBUMIN 2.7 g/dL (3.5-5.0); ALKALINE PHOSPHATASE 70 U/L (32-104); BUN 16 mg/dL (8-22); CALCIUM 8.4 mg/dL (8.8-10.2); CHLORIDE 92 mmol/L (98-107); COSMO 278; CREATININE 0.9 mg/dL (0.5-0.9); ESTIMATED GFR > 60; GLUCOSE 94 mg/dL (70-104); GOT 127 U/L (10-30); GPT 190 U/L (10-36); POTASSIUM 3.2 mmol/L (3.5-5.1); SODIUM 139 mmol/L (136-145); TCO2 34 mmol/L (25-35); TOTAL BILIRUBIN 0.48 mg/dL (0.20-1.00); TOTAL PROTEIN 5.8 g/dL (6.3-8.3)
[2019-10-19 06:37] LABS: BASO% 0.6 % (0.0-0.8); EOS# 0.05 X1000 (0.0-0.7); EOS% 0.3 % (0.0-10.0); HEMATOCRIT 36.3 % (37.0-47.0); HEMOGLOBIN 11.4 g/dL (12.0-16.0); IMM GRAN# 0.71 X1000 (0.0-0.04); IMM GRAN% 4.3 % (0.0-0.5); LYMPH# 1.57 X1000 (1.2-3.4); LYMPH% 9.6 % (20.5-51.1); MCH 30.4 PG (27-31); MCHC 31.4 g/dL (33-37); MCV 96.8 FL (81-99); MONO# 0.62 X1000 (0.11-0.59); MONO% 3.8 % (1.7-9.3); MPV 9.3 FL (7.4-10.4); NEUT# 13.31 X1000 (1.4-6.5); NEUT% 81.4 % (42.2-75.2); PLT 358 X1000 (130-400); RBC 3.75 XMIL (4.2-5.4); RDW 15.4 % (11.5-14.5); WBC 16.36 X1000 (4.8-10.8)
[2019-10-19 07:21] LABS: LYMPHS 14 % (21-51); MONO 3 % (1-9); SEGS 83 % (42-75)
[2019-10-19] MEDS: ATROVENT NEB INH SCH ×5 (07:54→23:20)
[2019-10-19] MEDS: XOPENEX NEB INH SCH ×5 (07:54→23:20)
[2019-10-19] MEDS: LASIX PO SCH (09:16)
[2019-10-19] MEDS: ESTRACE PO SCH (09:16)
[2019-10-19] MEDS: DITROPAN XL PO SCH (09:16)
[2019-10-19] MEDS: MYCOSTATIN SUSP PO SCH ×4 (09:16→21:30)
[2019-10-19] MEDS: PEPCID PO SCH (09:16)
[2019-10-19] MEDS: ZOVIRAX PO SCH (09:17)
[2019-10-19] MEDS: BETAPACE PO SCH ×2 (09:17→21:31)
[2019-10-19] MEDS: CYMBALTA PO SCH ×2 (09:17→21:31)
[2019-10-19] MEDS: CULTURELLE PO SCH ×2 (09:17→21:30)
[2019-10-19] MEDS: NEURONTIN PO SCH ×3 (09:17→21:31)
[2019-10-19] MEDS: PREDNISONE PO SCH ×2 (09:17→10:04)
[2019-10-19] MEDS: FLONASE NAS SCH ×2 (09:19→21:31)
[2019-10-19] MEDS ORDERED: KLOR-CON PO ONE (09:22)
--- NOTE | 2019-10-19 10:08 | EKG Report ---
Test Performed on : 10/19/2019 09:57:38 AM Test Reason : Atrial fibrillation/ medication change Blood Pressure : / mmHG Vent. Rate : 066 BPM Atrial Rate : 066 BPM P-R Int : 170 ms QRS Dur : 138 ms QT Int : 468 ms P-R-T Axes : 063 -51 -05 degrees QTc Int : 490 ms Sinus rhythm. with premature atrial complexes. Right bundle branch block Left anterior fascicular block Bifascicular block Lateral infarct (cited on or before 28-SEP-2019) Possible Inferior infarct , age undetermined Abnormal ECG When compared with ECG of 10-OCT-2019 08:58, (Unconfirmed) Vent. rate has decreased BY 61 BPM Right bundle branch block has replaced Incomplete right bundle branch block Confirmed by Clyde Villegas MD ([id number]) on 10/20/2019 5:35:14 PM
--- NOTE | 2019-10-19 10:16 | Diag Imaging Result Doc PS360 ---
EXAM: CHEST-PORTABLE HISTORY: pneumonia TECHNIQUE: Single view COMPARISON: 10/14/2019 FINDINGS: Poor inspiratory effort. There are infiltrates in the lower lungs. These are slightly less dense than they were on the prior exam. There are likely tiny pleural effusions. Prominent aortic arch. There is apical pleural thickening. IMPRESSION: Mild interval improvement Electronically signed by Dash Magana 10/19/2019 10:14 AM
[2019-10-19] MEDS: TAZIDIME 2 GM/NS 2 GM/100 ML IVPB IV SCH ×2 (15:27→22:00)
--- NOTE | 2019-10-19 16:16 | PROGRESS NOTE ---
DATE: 10/19/2019 SUBJECTIVE: This morning the patient states she is slightly improved from yesterday. She continues to have considerable weakness. Cough is intermittently productive of a purulent sputum. She denies fevers, chills, nausea, or vomiting. Her energy level remains very low. OBJECTIVE: vital signs: T-max 98.0 degrees, heart rate 60 to 95, respirations 18 to 20, blood pressure 106 to 148 over 61 to 73. General: Chronically ill appearing. No acute distress. Cardiovascular: Regular rate and rhythm. No significant murmurs, rubs, or gallops. Pulmonary: Crackles at bilateral bases extending half-way up the right lung field and a third of the way up the left lung field. Improved air movement from yesterday. Abdomen: Soft, nontender, nondistended. Positive bowel sounds. Extremities: Moves all extremities well. No significant clubbing, cyanosis, or edema. Dermatologic: Evaluation reveals no evidence of rash. LABORATORY DATA: White blood cell count 16.36, hemoglobin 11.4, hematocrit 36.3, platelet count 358,000, sedimentation rate 107. Sodium 139, potassium 3.2, chloride 92, bicarb 34, BUN 16, creatinine 0.9, glucose 94, calcium 8.4, total bilirubin 0.48, total protein 5.8, albumin 2.7, alkaline phosphatase 70, AST 127, ALT 190, alkaline phosphatase 70. ASSESSMENT AND PLAN: 1. Hypoxic respiratory failure - This is a consequence of bilateral bronchial pneumonia, volume overload state, and underlying pulmonary inflammation/pulmonary fibrosis. We will continue treatment as described below. We will encourage incentive spirometry and oxygen per protocol. 2. Bilateral bronchopneumonia - Sputum cultures grew Pseudomonas. I am concerned that Zosyn may be causing transaminitis. We will transition the patient to ceftazidime. We will continue to encourage bronchodilators and incentive spirometry. 3. Volume overload - The patient continues to appear euvolemic. We will continue daily Lasix for now. 4. Urinary tract infection - Urine culture grew Enterobacter cloacae. She is treated successfully with Zosyn therapy. As above, we will transition to ceftazidime. 5. Pulmonary fibrosis/pulmonary inflammation - Unfortunately, the patient's CRP and sedimentation rate have increased from last evaluation. We will increase prednisone to 40 mg on a daily basis. We will continue treatment of her underlying infection as above. We will plan evaluation of pulmonary fibrosis as an outpatient. 6. Somnolence - The patient has achieved improvement with decreasing gabapentin and discontinuing cyclobenzaprine. We will continue to encourage activity. 7. Paroxysmal atrial fibrillation - The patient remains in a sinus-generated rhythm with diltiazem and sotalol therapy. 8. Hypothyroidism - We will continue the patient on levothyroxine replacement. 9. Depression/anxiety/chronic pain - Symptoms are controlled with duloxetine and gabapentin therapy. 10. Transaminitis - This is quite interesting. I suspect this may be Zosyn related. We will discontinue Zosyn. We will transition to ceftazidime as described. We will plan to recheck levels in the morning. 11. Cutaneous Opal - We will continue the patient on topical nystatin. 12. Profound weakness - Unfortunately, the patient continues to require significant assistance with any ambulation. We will continue physical therapy for now. The patient likely will require rehabilitation at discharge. DISPOSITION: At this point, the patient continues to require custodial care in a hospital setting. We will plan discharge home once appropriate. cc: Clyde Villegas MD
[2019-10-19] MEDS: LOVENOX SUBQ SCH (17:17)
--- NOTE | 2019-10-19 17:37 | PULMONOLOGY PROGRESS NOTE ---
DATE: 10/19/2019 SUBJECTIVE: Ms. Garcia is sitting up in a chair watching TV. She does continue to be weak. She denies any fevers or chills. OBJECTIVE: Vital Signs: Blood pressure 106/61, heart rate 62, respirations 18, temperature 97.5 oral with O2 saturation 100% on 3 L nasal cannula. HEENT: Head is normocephalic, atraumatic. Mucous membranes are moist. Pupils are equal and round and react to light. Neck: Supple with trachea midline. Cardiovascular: Regular rate and rhythm. No murmurs. S1 and S2 appreciated. Pulmonary: Bibasilar crackles are noted. Chest rises and falls symmetrically with respiration. Gastrointestinal: Abdomen is soft, nontender, nondistended. Bowel sounds in all 4 quadrants. Extremities: No clubbing, cyanosis, or edema. Calves are nontender bilaterally. LABS: WBCs 16.3 with hemoglobin 11.4, hematocrit 36.3, and platelets of 358. Sodium 139, potassium 3.2, BUN 16, creatinine 0.9 with a glucose of 94. IMPRESSION: A 69-year-old with: 1. Pulmonary fibrosis. 2. Gram-negative pneumonia. 3. Urinary tract infection with Enterobacter. 4. Chronic depression. 5. Dysphagia. 6. Dyspnea. 7. Severe deconditioning. 8. Mild transaminitis. PLAN: 1. Will continue steroids. 2. Encourage bronchial hygiene. 3. Continue current antibiotics. 4. Continue incentive spirometer. 5. Mobilization. Continue PT. Dictated by DORON Ochoa for Kavon Rodriguez MD cc: DORON Ochoa MD Scott A. Matthews, MD
[2019-10-19] MEDS: MUCINEX DM PO SCH ×2 (17:41→21:42)
[2019-10-19] MEDS: CARDIZEM LA PO SCH (21:30)
[2019-10-19] MEDS: ALLEGRA PO SCH (21:30)
[2019-10-19] MEDS: TOPAMAX PO SCH (21:31)
[2019-10-19] MEDS: PROTONIX [NONFORMULARY] PO SCH (21:31)
[2019-10-20 06:13] LABS: BASO# 0.05 X1000 (0.0-0.2); BASO% 0.3 % (0.0-0.8); HEMATOCRIT 37.1 % (37.0-47.0); HEMOGLOBIN 11.4 g/dL (12.0-16.0); LYMPH# 1.32 X1000 (1.2-3.4); LYMPH% 7.9 % (20.5-51.1); MCH 29.7 PG (27-31); MCHC 30.7 g/dL (33-37); MCV 96.6 FL (81-99); MONO# 1.04 X1000 (0.11-0.59); MONO% 6.2 % (1.7-9.3); MPV 9.4 FL (7.4-10.4); PLT 363 X1000 (130-400); RBC 3.84 XMIL (4.2-5.4); RDW 15.3 % (11.5-14.5); WBC 16.76 X1000 (4.8-10.8)
[2019-10-20] MEDS: BENTYL PO SCH ×3 (06:22→16:44)
[2019-10-20] MEDS: BUSPAR PO SCH ×3 (06:22→21:34)
[2019-10-20] MEDS: TAZIDIME 2 GM/NS 2 GM/100 ML IVPB IV SCH ×3 (06:22→22:25)
[2019-10-20] MEDS: SYNTHROID PO SCH (06:22)
[2019-10-20 06:58] LABS: AGAP 10; ALB/GLOB RATIO 0.8; ALBUMIN 2.7 g/dL (3.5-5.0); ALKALINE PHOSPHATASE 82 U/L (32-104); BUN 15 mg/dL (8-22); CALCIUM 8.8 mg/dL (8.8-10.2); CHLORIDE 95 mmol/L (98-107); COSMO 277; CREATININE 0.8 mg/dL (0.5-0.9); ESTIMATED GFR > 60; GLUCOSE 100 mg/dL (70-104); GOT 135 U/L (10-30); GPT 205 U/L (10-36); POTASSIUM 4.8 mmol/L (3.5-5.1); SODIUM 138 mmol/L (136-145); TCO2 33 mmol/L (25-35); TOTAL PROTEIN 5.9 g/dL (6.3-8.3)
[2019-10-20 07:18] LABS: BANDS 4 % (0-1); LYMPHS 12 % (21-51); SEGS 84 % (42-75)
[2019-10-20] MEDS: ATROVENT NEB INH SCH ×5 (08:02→23:31)
[2019-10-20] MEDS: XOPENEX NEB INH SCH ×5 (08:02→23:31)
[2019-10-20] MEDS: FLONASE NAS SCH ×2 (08:21→21:34)
[2019-10-20] MEDS: MUCINEX DM PO SCH ×2 (08:21→21:33)
[2019-10-20] MEDS: CYMBALTA PO SCH ×2 (08:21→21:33)
[2019-10-20] MEDS: NEURONTIN PO SCH ×4 (08:22→21:33)
[2019-10-20] MEDS: PEPCID PO SCH (08:22)
[2019-10-20] MEDS: ESTRACE PO SCH (08:22)
[2019-10-20] MEDS: MYCOSTATIN SUSP PO SCH ×5 (08:22→21:34)
[2019-10-20] MEDS: ZOVIRAX PO SCH (08:22)
[2019-10-20] MEDS: BETAPACE PO SCH ×2 (08:22→21:34)
[2019-10-20] MEDS: DITROPAN XL PO SCH (08:22)
[2019-10-20] MEDS: PREDNISONE PO SCH (08:22)
[2019-10-20] MEDS: CULTURELLE PO SCH ×2 (08:22→21:34)
[2019-10-20] MEDS: LASIX PO SCH (08:22)
[2019-10-20] MEDS: LOVENOX SUBQ SCH (16:43)
--- NOTE | 2019-10-20 18:12 | PULMONOLOGY CONSULTATION ---
DATE: 10/20/2019 SUBJECTIVE: Ms. Garcia is sitting up in the chair, watching TV. She continues to be weak, although she states she feels maybe getting a little stronger. She denies any fever or chills. OBJECTIVE: Vital signs: Blood pressure is 110/59 with a heart rate of 68, respirations 17, temperature is 97.7 degrees with O2 saturations 98% to 100% on 3 L nasal cannula. HEENT: Head is normocephalic, atraumatic. Mucous membranes are moist. Pupils equal, round, react to light. Neck is supple, with trachea midline. Cardiovascular: Regular rate and rhythm. No murmurs. S1 and S2 appreciated. Pulmonary: Bibasilar crackles are noted, although sounds less than yesterday. Chest rises and falls symmetric with respiration. Gastrointestinal: Abdomen is soft, nontender, nondistended. Bowel sounds in all 4 quadrants. Extremities: No clubbing, cyanosis or edema. Calves are nontender bilateral. LABORATORY DATA: WBC is 16.7 with hemoglobin 11.4, hematocrit 37.1, platelets of 363,000. Sodium 138, potassium 4.8, BUN 15, creatinine 0.8 with a glucose of 100. IMPRESSION: This is a 69-year-old female with: 1. Pulmonary fibrosis. 2. Pseudomonas pneumonia. 3. Enterobacter urinary tract infection. 4. Chronic depression. 5. Dysphagia. 6. Dyspnea. 7. Severe deconditioning. 8. Mild transaminitis. PLAN: 1. Continue steroids. 2. Continue to encourage bronchial hygiene. 3. Continue current antibiotics, ceftazidime. 4. Continue incentive spirometer. 5. Mobilization. Continue PT. Dictated by DORON Ochoa for Kavon Rodriguez MD cc: DORON Ochoa MD Scott A. Matthews, MD
--- NOTE | 2019-10-20 18:55 | PROGRESS NOTE ---
DATE: 10/20/2019 SUBJECTIVE: Upon my arrival, patient is sitting upright in her chair. Overall, her demeanor is much brighter than yesterday. Patient states, overall, she feels she continues to improve. She does, however, continue to have significant coughing which has increased over the last several days. Cough is intermittently productive of a purulent sputum. Her energy level remains very low. She requires significant assistance with transitioning from the bed to the chair. She denies fevers, chills, nausea, vomiting, chest pains or palpitations. OBJECTIVE: T-max 97.7 degrees, heart rate 57 to 68, respirations 16 to 18, blood pressure 110 to 168 over 54 to 74.General: Chronically ill appearing, no acute distress. Cardiovascular: Regular rate and rhythm. No significant murmurs, rubs, or gallops. Pulmonary: Further improvement with crackles only to the lower 3rd of the left lung field and lower half of the right lung field. Adequate air movement. Abdomen: Soft, nontender, nondistended. Positive bowel sounds. Extremities: Moves all extremities well. No significant clubbing, cyanosis, or edema. Dermatologic: Evaluation reveals no evidence of rash. LABORATORY DATA: White blood cell count 16.76, hemoglobin 11.4, hematocrit 37.1, platelet count 363,000. Sodium 138, potassium 3.8, chloride 95, bicarb 33, BUN 15, creatinine 0.8, glucose 100, calcium 8.8, total bilirubin 0.30, total protein 5.7, albumin 2.7, alkaline phosphatase 82, AST 135, ALT 205. ASSESSMENT AND PLAN: 1. Hypoxic respiratory failure-this is a result of bilateral bronchopneumonia, volume overload and underlying pulmonary inflammation/pulmonary fibrosis. We will treat each as described below. We will continue to encourage incentive spirometry and oxygen per protocol. Oxygen demands are slowly decreasing. 2. Bilateral bronchopneumonia-sputum culture grew Pseudomonas. As she is having increasing sputum production, we will repeat a sputum culture. Yesterday, patient was transitioned from Zosyn to ceftazidime. We will continue to encourage bronchodilators and incentive spirometry. 3. Volume overload-patient appears euvolemic on examination today. We will continue her current dosing of Lasix. 4. Urinary tract infection-urine culture grew Enterobacter cloacae. She should be adequately treated with Zosyn therapy. As above, for underlying pneumonia, we have transitioned her to ceftazidime which also would adequately cover Enterobacter cloacae. 5. Pulmonary fibrosis/pulmonary inflammation-CRP and sedimentation rate increased since transitioning from intravenous steroids to oral prednisone. We increased the patient's prednisone to 40 mg daily yesterday. We will likely recheck inflammatory markers on Tuesday. We will address pulmonary fibrosis as an outpatient. 6. Somnolence-we have achieved improvement with decreasing gabapentin and discontinuing cyclobenzaprine. 7. Paroxysmal atrial fibrillation-patient remains in a sinus-generated rhythm. We will continue diltiazem and sotalol therapy. 8. Hypothyroidism-we will continue patient on levothyroxine replacement. 9. Depression/anxiety/chronic pain-patient is treated with duloxetine and gabapentin therapy. At present time, pain is controlled. She continues to exhibit signs of depression. These symptoms are exacerbated with her current illness. 10. Transaminitis-I continue to expect this is Zosyn related. The rate of increase has decreased from yesterday, since stopping Zosyn. We will continue to follow this daily. I anticipate we will see a decline starting tomorrow should this have been Zosyn related. We will continue ceftazidime as above. 11. 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 12. Profound weakness-unfortunately, patient continues to have profound weakness requiring significant assistance for daily activities. We discussed the need for rehabilitation. She is prepared to pursue this at present time. Should her condition continue to improve, we will plan transfer as soon as early next week. 13. Disposition. At this point, patient continues to require alf care in a hospital setting. We will plan discharge home once appropriate. cc: Clyed Villegas MD
[2019-10-20] MEDS: ALLEGRA PO SCH (21:33)
[2019-10-20] MEDS: TOPAMAX PO SCH (21:33)
[2019-10-20] MEDS: PROTONIX [NONFORMULARY] PO SCH (21:33)
[2019-10-20] MEDS: CARDIZEM LA PO SCH (21:33)
[2019-10-21] MEDS: TAZIDIME 2 GM/NS 2 GM/100 ML IVPB IV SCH ×3 (06:31→22:38)
[2019-10-21] MEDS: BUSPAR PO SCH ×3 (06:31→21:00)
[2019-10-21] MEDS: SYNTHROID PO SCH (06:31)
[2019-10-21] MEDS: BENTYL PO SCH ×3 (06:31→15:58)
[2019-10-21] MEDS: NEURONTIN PO SCH ×4 (08:17→21:00)
[2019-10-21] MEDS: CYMBALTA PO SCH ×2 (08:17→21:01)
[2019-10-21] MEDS: CULTURELLE PO SCH ×2 (08:17→21:00)
[2019-10-21] MEDS: MYCOSTATIN SUSP PO SCH ×7 (08:17→21:06)
[2019-10-21] MEDS: PEPCID PO SCH (08:17)
[2019-10-21] MEDS: FLONASE NAS SCH ×2 (08:17→21:01)
[2019-10-21] MEDS: PREDNISONE PO SCH (08:17)
[2019-10-21] MEDS: ESTRACE PO SCH (08:17)
[2019-10-21] MEDS: ZOVIRAX PO SCH (08:17)
[2019-10-21] MEDS: BETAPACE PO SCH ×2 (08:17→21:00)
[2019-10-21] MEDS: MUCINEX DM PO SCH ×2 (08:17→21:00)
[2019-10-21] MEDS: DITROPAN XL PO SCH (08:17)
[2019-10-21] MEDS: LASIX PO SCH (08:17)
[2019-10-21] MEDS: XOPENEX NEB INH SCH ×5 (08:21→23:23)
[2019-10-21] MEDS: ATROVENT NEB INH SCH ×5 (08:21→23:23)
[2019-10-21 08:44] LABS: AGAP 22; CHLORIDE 93 mmol/L (98-107); GLUCOSE 100 mg/dL (70-104); POTASSIUM 4.4 mmol/L (3.5-5.1); SODIUM 139 mmol/L (136-145); TCO2 24 mmol/L (25-35)
[2019-10-21 08:45] LABS: BUN 14 mg/dL (8-22); CALCIUM 9.2 mg/dL (8.8-10.2); COSMO 278; CREATININE 0.8 mg/dL (0.5-0.9)
[2019-10-21 08:46] LABS: ALKALINE PHOSPHATASE 93 U/L (32-104); TOTAL BILIRUBIN 0.31 mg/dL (0.20-1.00); TOTAL PROTEIN 6.1 g/dL (6.3-8.3)
[2019-10-21 08:50] LABS: GOT 131 U/L (10-30); GPT 180 U/L (10-36)
--- NOTE | 2019-10-21 14:40 | PROGRESS NOTE ---
DATE: 10/21/2019 SUBJECTIVE: Upon arrival this morning, patient was sitting upright in her chair. Overall, she states she is doing reasonably well. From yesterday, she continues to have a cough productive of a purulent sputum. Shortness of breath is stable. She denies fevers, chills, nausea, vomiting, or chest discomfort. P.o. intake is adequate. Energy level remains low. OBJECTIVE: T-max 98.4 degrees, heart rate 63 to 94, respirations 17 to 22, blood pressure 115- 130/66-72. General: Chronically ill-appearing, no acute distress. Cardiovascular: Regular rate and rhythm. No significant murmurs, rubs, or gallops. Pulmonary: Left-sided crackles, lower 1/3 of the lung field. Right-sided crackles jail with some intermittent wheezing. Abdomen: Soft, nontender, nondistended. Positive bowel sounds. Extremities: Moves all extremities well. No significant clubbing, cyanosis, or edema. Dermatologic: Evaluation reveals no evidence of rash. LABORATORY DATA: Sodium 139, potassium 4.4, chloride 93, bicarb 24, BUN 14, creatinine 0.8, glucose 100, calcium 9.2. Total bilirubin 0.31, total protein 6.1, albumin 3.0, alkaline phosphatase 93, AST 131, ALT 180. ASSESSMENT AND PLAN: 1. Hypoxic respiratory failure-this is a consequence of bronchopneumonia, volume overload, and underlying pulmonary inflammation/pulmonary fibrosis. We will continue treatment as described below. We will encourage incentive spirometry and oxygen per protocol. 2. Bilateral bronchopneumonia-patient is experiencing an improvement in her overall condition. Over the course of the last several days, she has developed a cough productive of a purulent sputum. We will continue Mucinex therapy. We will recheck sputum cultures. We will continue ceftazidime. 3. Volume overload-patient's volume is stable with Lasix therapy. 4. Urinary tract infection-Enterobacter cloacae was grown per urine culture. She is treated successfully with ceftazidime currently. 5. Pulmonary fibrosis/pulmonary inflammation-we will plan to recheck a CRP and a sedimentation rate tomorrow. Two days ago, we increased prednisone secondary to increasing inflammatory markers. 6. Somnolence-patient has achieved improvement with decreasing gabapentin and discontinuing cyclobenzaprine. 7. Paroxysmal atrial fibrillation-the patient remained in a sinus-generated rhythm with diltiazem and sotalol therapy. 8. Hypothyroid state-we will continue levothyroxine replacement. 9. Depression/anxiety/chronic pain-symptoms are reasonably controlled with duloxetine and gabapentin therapy. 10. Transaminitis-I suspect this was Zosyn related. Levels began trending down today. Her Zosyn has been held. She was transitioned to ceftazidime. 11. Cutaneous trinh-we will continue as needed topical nystatin. 12. Profound weakness-unfortunately, this persists. For this reason, patient will require rehabilitation at discharge. I anticipate this to occur in the next several days. 13. Disposition-at this point, patient continues to require fdc care in a hospital setting. We will plan discharge home once appropriate. cc: Clyde Villegas MD
[2019-10-21] MEDS: LOVENOX SUBQ SCH ×2 (15:59→16:26)
--- NOTE | 2019-10-21 17:44 | PULMONOLOGY PROGRESS NOTE ---
DATE: 10/21/2019 SUBJECTIVE: The patient is sitting up in a chair, watching TV. She feels that she is doing better. She continues to complain of a productive cough. She states that her shortness of breath at rest is improving. OBJECTIVE: Vital Signs: Blood pressure is 121/72, with a heart rate of 63, respirations 17, temperature is 97.5 degrees oral, O2 saturations are 95 to 100 percent on 3 L nasal cannula. Cardiovascular: Regular rate and rhythm. S1 and S2 are appreciated. No murmurs. Pulmonary: She does have bilateral lower lung crackles with some scattered expiratory wheezing. Chest rises and falls symmetrically with respiration. Chest wall is nontender to palpation. Gastrointestinal: Abdomen is soft, nontender, nondistended, with bowel sounds in all 4 quadrants. Extremities: No clubbing, cyanosis, or edema. Calves are nontender, with peripheral pulses palpable. Labs: Sodium is 139, potassium 4.4, BUN 14, creatinine 0.8, with a glucose of 100. IMPRESSION: This is a 69-year-old female with: 1. Pulmonary fibrosis. 2. Pseudomonas pneumonia. 3. Enterobacter urinary tract infection. 4. Dyspnea. 5. Transaminitis. PLAN: 1. We will continue supplemental oxygen, incentive spirometer. 2. Continue ceftazidime and Mucinex. 3. Enterobacter UTI. Continue ceftazidime. 4. Continue her prednisone. 5. Continue to trend daily labs. Dictated by DORON Ochoa for Kavon Rodriguez MD cc: DORON Ochoa MD Scott A. Matthews, MD
[2019-10-21] MEDS: TOPAMAX PO SCH (21:00)
[2019-10-21] MEDS: ALLEGRA PO SCH (21:00)
[2019-10-21] MEDS: CARDIZEM LA PO SCH (21:00)
[2019-10-21] MEDS: PROTONIX [NONFORMULARY] PO SCH (21:00)
[2019-10-22] MEDS: BENTYL PO SCH ×4 (05:31→17:34)
[2019-10-22] MEDS: SYNTHROID PO SCH ×2 (05:31→06:17)
[2019-10-22] MEDS: BUSPAR PO SCH ×3 (05:31→20:40)
[2019-10-22] MEDS: TAZIDIME 2 GM/NS 2 GM/100 ML IVPB IV SCH ×3 (06:15→20:40)
[2019-10-22 07:04] LABS: HEMATOCRIT 37.5 % (37.0-47.0); HEMOGLOBIN 11.7 g/dL (12.0-16.0); MCH 30.1 PG (27-31); MCHC 31.2 g/dL (33-37); MCV 96.4 FL (81-99); MPV 9.6 FL (7.4-10.4); PLT 391 X1000 (130-400); RBC 3.89 XMIL (4.2-5.4); RDW 15.4 % (11.5-14.5)
[2019-10-22 07:10] LABS: AGAP 14; ALKALINE PHOSPHATASE 84 U/L (32-104); BUN 12 mg/dL (8-22); CALCIUM 8.9 mg/dL (8.8-10.2); CHLORIDE 96 mmol/L (98-107); COSMO 280; CREATININE 0.8 mg/dL (0.5-0.9); ESTIMATED GFR > 60; GLUCOSE 82 mg/dL (70-104); GOT 79 U/L (10-30); GPT 163 U/L (10-36); POTASSIUM 2.9 mmol/L (3.5-5.1); SODIUM 141 mmol/L (136-145); TCO2 31 mmol/L (25-35); TOTAL BILIRUBIN 0.25 mg/dL (0.20-1.00)
--- NOTE | 2019-10-22 07:34 | Diag Imaging Result Doc PS360 ---
EXAM: CHEST-1 VIEW INDICATION: pneumonia TECHNIQUE: One view COMPARISON: 10/19/2019 FINDINGS: Inspiration is suboptimal similar to the previous study. Airspace consolidation at the right lung base has worsened during the interval. However, there does appear to be some improvement in the consolidation at the left lung base. No new consolidations are identified, otherwise. Cardiac silhouette is stable. IMPRESSION: Mixed changes as described above. Electronically signed by Alex Vega 10/22/2019 7:31 AM
[2019-10-22 07:48] LABS: C REACTIVE PROT QUANT 27.27 mg/L (0.00-5.00)
[2019-10-22 07:59] LABS: BANDS 6 % (0-1); LYMPHS 10 % (21-51); MONO 4 % (1-9); SEGS 80 % (42-75)
[2019-10-22] MEDS: ATROVENT NEB INH SCH ×5 (08:18→23:06)
[2019-10-22] MEDS: XOPENEX NEB INH SCH ×5 (08:18→23:10)
[2019-10-22] MEDS: PEPCID PO SCH (09:04)
[2019-10-22] MEDS: CULTURELLE PO SCH ×2 (09:04→20:40)
[2019-10-22] MEDS: MYCOSTATIN SUSP PO SCH ×4 (09:04→20:41)
[2019-10-22] MEDS: BETAPACE PO SCH ×2 (09:04→20:40)
[2019-10-22] MEDS: ESTRACE PO SCH (09:04)
[2019-10-22] MEDS: PREDNISONE PO SCH (09:04)
[2019-10-22] MEDS: ZOVIRAX PO SCH (09:04)
[2019-10-22] MEDS: NEURONTIN PO SCH ×3 (09:04→20:40)
[2019-10-22] MEDS: LASIX PO SCH (09:04)
[2019-10-22] MEDS: CYMBALTA PO SCH ×2 (09:04→20:40)
[2019-10-22] MEDS: MUCINEX DM PO SCH ×2 (09:04→20:40)
[2019-10-22] MEDS: DITROPAN XL PO SCH (09:04)
[2019-10-22] MEDS: FLONASE NAS SCH ×2 (09:05→20:41)
[2019-10-22] MEDS ORDERED: KLOR-CON PO ONE (15:19)
[2019-10-22] MEDS: LOVENOX SUBQ SCH (17:34)
--- NOTE | 2019-10-22 20:35 | PROGRESS NOTE ---
DATE: 10/22/2019 SUBJECTIVE: Upon my arrival this morning, patient was sitting upright in bed. Overall, she states her condition was largely unchanged from yesterday. She continues to have cough. Her energy level remains very low. P.o. intake is reasonable. I was called in regards to some increasing weakness during the day. She had difficulty working with physical therapy. OBJECTIVE: T-max 97.9 degrees, heart rate 65 to 75, respirations 16 to 22, blood pressure 115 to 120 over 62 to 70.General: Chronically ill appearing, no acute distress. Cardiovascular: Regular rate and rhythm. No significant murmurs, rubs, or gallops. Pulmonary: Improving aeration and air movement on the left. Crackles, rhonchi and wheezing on the right extending 2/3 of the lung field. Abdomen: Soft, nontender, nondistended. Positive bowel sounds. Extremities: Moves all extremities well. No significant clubbing, cyanosis, or edema. Dermatologic: Evaluation reveals no evidence of rash. LABORATORY DATA: White blood cell count 15.10, hemoglobin 11.7, hematocrit 37.5, platelet count 391,000. Sodium 141, potassium 2.9, chloride 96, bicarb 31, BUN 12, creatinine 0.8, glucose 82, calcium 8.9, total bilirubin 0.25, total protein 6.0, albumin 3.0, alkaline phosphatase 84, AST 79, ALT 163. ASSESSMENT AND PLAN: 1. Hypoxic respiratory failure-as noted earlier, this likely is a consequence of bronchopneumonia, volume overload and underlying pulmonary inflammation/pulmonary fibrosis. We will continue to encourage incentive spirometry and oxygen per protocol. We will treat conditions as described below. 2. Bilateral bronchopneumonia-the patient has demonstrated improvement radiologically on the left as well as clinically. Right side, however, remains very concerning. We will continue patient's current antibiotics. We will encourage incentive spirometry and pulmonary toilet. We will follow up repeat sputum cultures. Because of her progressive symptoms, we will plan CT scan in the morning. We will determine if bronchoscopy is appropriate. 3. Volume overload-volume status remains stable with Lasix therapy. We will continue this. 4. Urinary tract infection-urine culture grew Enterobacter cloacae. She is treated successfully with ceftazidime. 5. Pulmonary fibrosis/pulmonary inflammation-patient's CRP has trended down somewhat, but remains elevated. Sedimentation rate remains high at 90. The patient is being treated with prednisone 40 mg daily. 6. Somnolence-the patient has achieved some improvement with decreasing gabapentin and discontinuing cyclobenzaprine. We will continue to encourage activity. 7. Paroxysmal atrial fibrillation-the patient remains in a sinus-generated rhythm with diltiazem and sotalol therapy. 8. Hypothyroidism-we will continue patient on levothyroxine replacement. 9. Depression/anxiety/chronic pain-the patient is treated with duloxetine and gabapentin therapy. Symptoms are stable. 10. Transaminitis-this likely was secondary to Zosyn. Transaminases are trending downward with ceftazidime therapy. 11. [*]-we will continue topical nystatin. 12. Profound weakness-unfortunately, this persists. We will continue physical therapy. She will likely require rehabilitation at discharge. 13. Disposition-at this point, patient continues to require senior living care in a hospital setting. We will plan discharge to rehabilitation once appropriate. cc: Clyde Villegas MD
[2019-10-22] MEDS: TOPAMAX PO SCH (20:40)
[2019-10-22] MEDS: ALLEGRA PO SCH (20:40)
[2019-10-22] MEDS: PROTONIX [NONFORMULARY] PO SCH (20:41)
[2019-10-22] MEDS: CARDIZEM LA PO SCH (20:41)
--- NOTE | 2019-10-22 23:02 | PULMONOLOGY PROGRESS NOTE ---
DATE: 10/22/2019 SUBJECTIVE: The patient reports generalized weakness. She reports she has a lot of coughing in the middle of the night, but less so during the daytime. OBJECTIVE: Vital Signs: The patient has been afebrile for the last 24 hours. Blood pressure 120/68, heart rate 65, respiratory rate 22, oxygen saturation 95% on 3 L . HEENT: Pupils are equal and reactive. Oropharynx appears clear. Neck: Supple. Chest: Crackles bilaterally. Cardiac exam: S1, S2. Abdomen: Soft. Extremities: Trace edema. LABORATORIES: Chest x-ray reveals bilateral infiltrates. The right base has again worsened, but there has been some improvement on the left. White blood count 15.10, hemoglobin 11.7, platelet 391,000. C-reactive protein [id number] elevated at 1.27 but significantly less than on admission as 125. IMPRESSION: A 69-year-old with: 1. Fluctuating infiltrates. Prior sputum culture reveals Pseudomonas. 2. Background pulmonary fibrosis. 3. Chronic depression. 4. Dysphagia. 5. Dyspnea. 6. Severe deconditioning. DISCUSSION: A 69 year old with problems as outlined above. The patient's course has waxed and waned, but she has not had a progressive course to improvement. Chest x-ray now has had some regression with increased infiltrates on the right. It is not clear whether we have failed to clear the prior identified Pseudomonas or she has a new organism. She is on significant steroids and is at risk for fungal disease. PLAN: 1. Continue current steroid regimen. 2. Continue current antibiotic regimen. 3. Continue incentive spirometry. 4. Consider CT scan of the thorax with possible bronchoscopy, lavage and washings if CT scan suggests a good target to be explored. cc: MD Clyde Donohue MD
[2019-10-23] MEDS: TAZIDIME 2 GM/NS 2 GM/100 ML IVPB IV SCH ×5 (01:01→22:38)
[2019-10-23] MEDS: BENTYL PO SCH ×3 (06:16→16:49)
[2019-10-23] MEDS: SYNTHROID PO SCH (06:16)
[2019-10-23] MEDS: BUSPAR PO SCH ×3 (06:16→20:23)
[2019-10-23 06:33] LABS: BASO# 0.07 X1000 (0.0-0.2); BASO% 0.5 % (0.0-0.8); HEMATOCRIT 38.6 % (37.0-47.0); LYMPH# 1.38 X1000 (1.2-3.4); LYMPH% 10.1 % (20.5-51.1); MCH 30.1 PG (27-31); MCHC 31.1 g/dL (33-37); MCV 96.7 FL (81-99); MONO# 1.36 X1000 (0.11-0.59); MONO% 9.9 % (1.7-9.3); MPV 9.6 FL (7.4-10.4); PLT 404 X1000 (130-400); RBC 3.99 XMIL (4.2-5.4); RDW 15.5 % (11.5-14.5); WBC 13.72 X1000 (4.8-10.8)
[2019-10-23 06:45] LABS: AGAP 14; ALBUMIN 3.1 g/dL (3.5-5.0); ALKALINE PHOSPHATASE 85 U/L (32-104); BUN 13 mg/dL (8-22); CALCIUM 9.1 mg/dL (8.8-10.2); CHLORIDE 96 mmol/L (98-107); COSMO 284; CREATININE 0.8 mg/dL (0.5-0.9); ESTIMATED GFR > 60; GLUCOSE 106 mg/dL (70-104); GOT 57 U/L (10-30); GPT 132 U/L (10-36); POTASSIUM 3.7 mmol/L (3.5-5.1); SODIUM 142 mmol/L (136-145); TCO2 32 mmol/L (25-35); TOTAL BILIRUBIN 0.23 mg/dL (0.20-1.00); TOTAL PROTEIN 6.2 g/dL (6.3-8.3)
[2019-10-23] MEDS: XOPENEX NEB INH SCH ×5 (08:00→23:46)
[2019-10-23] MEDS: ATROVENT NEB INH SCH ×5 (08:00→23:47)
[2019-10-23] MEDS: LASIX PO SCH (09:40)
[2019-10-23] MEDS: PREDNISONE PO SCH (09:40)
[2019-10-23] MEDS: CYMBALTA PO SCH ×2 (09:40→20:24)
[2019-10-23] MEDS: BETAPACE PO SCH ×2 (09:40→20:23)
[2019-10-23] MEDS: NEURONTIN PO SCH ×3 (09:40→20:23)
[2019-10-23] MEDS: MUCINEX DM PO SCH ×2 (09:41→20:24)
[2019-10-23] MEDS: PEPCID PO SCH (09:41)
[2019-10-23] MEDS: ESTRACE PO SCH (09:41)
[2019-10-23] MEDS: CULTURELLE PO SCH ×2 (09:41→20:24)
[2019-10-23] MEDS: DITROPAN XL PO SCH (09:41)
[2019-10-23] MEDS: ZOVIRAX PO SCH (09:41)
[2019-10-23] MEDS: FLONASE NAS SCH ×2 (09:41→20:22)
[2019-10-23] MEDS: MYCOSTATIN SUSP PO SCH ×4 (09:42→20:23)
--- NOTE | 2019-10-23 15:51 | PROGRESS NOTE ---
DATE: 10/23/2019 SUBJECTIVE: Upon my arrival this morning, patient was sitting upright in the chair. Overall, she states her condition was largely unchanged. Yesterday, with physical therapy, she was able to participate very little. She attributed this to being very sleepy. She plans to increase her activity today. She continues to have significant cough. This is intermittently productive of a purulent sputum. Her shortness of breath is reasonably stable. She denies fevers, chills, nausea, vomiting, or chest discomfort. OBJECTIVE: Vital signs: T-max 97.6 degrees, heart rate 62 to 70, respirations 14 to 20, blood pressure 109 to 138 over 54 to 76. General: Chronically ill appearing, no acute distress. Cardiovascular: Regular rate and rhythm. No significant murmurs, rubs, or gallops. Pulmonary: Crackles at the left base. Adequate air movement. Right lung with rhonchi and wheezing throughout, worse at the bases. Abdomen: Soft, nontender, nondistended. Positive bowel sounds. Extremities: Moves all extremities well. No significant clubbing, cyanosis, or edema. Dermatologic: Evaluation reveals no evidence of rash. LABORATORY DATA: White blood cell count 13.72, hemoglobin 12.0, hematocrit 38.6, platelet count 404,000. Sodium 142, potassium 3.7, chloride 96, bicarb 32, BUN 13, creatinine 0.8, glucose 106, calcium 9.1, total bilirubin 0.23, total protein 6.2, albumin 3.1, alkaline phosphatase 85, AST 57, ALT 132. ASSESSMENT AND PLAN: 1. Hypoxic respiratory failure-as noted on previous notes, this is likely a consequence of bronchopneumonia, volume overload, and underlying pulmonary inflammation/pulmonary fibrosis. We will encourage incentive spirometry, aspiration precautions, pulmonary toilet, and oxygen per protocol. We will treat her underlying conditions as below. 2. Bronchopneumonia-original sputum culture returned positive for pseudomonas. Patient has been treated with appropriate antibiotics. Sputum culture again is growing a gram-negative mary. We will await culture results and determine if additional antibiotics are warranted. Depending on these results, we will consider CT scan and possible bronchoscopy. 3. Volume overload. We will continue patient on Lasix therapy. She appears euvolemic. 4. Pulmonary fibrosis/pulmonary inflammation-the patient's CRP has trended down, although remains significantly elevated with prednisone 40 mg. We will continue her current dosage. As above, we will consider bronchoscopy evaluation. 5. Urinary tract infection-urine culture grew Enterobacter cloacae. She is successfully treated with ceftazidime. 6. Transaminitis-patient is achieving improvement with discontinuing Zosyn. We will continue to monitor. 7. Somnolence-the patient has achieved improvement, although not resolution, with decreasing gabapentin and discontinuing cyclobenzaprine. We will encourage activity. 8. Paroxysmal atrial fibrillation-the patient remains in a sinus-generated rhythm with diltiazem and sotalol therapy. 9. Hypothyroidism-we will continue patient on levothyroxine replacement. 10. Depression/anxiety/chronic pain-we will continue patient on duloxetine and gabapentin. Symptoms are reasonably stable. 11. 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 12. Profound weakness-unfortunately, this is limiting her recovery. We will continue to encourage activity. She will likely require rehabilitation at discharge. 13. Disposition-at this point, patient continues to require halfway care in a hospital setting. We will plan discharge to rehabilitation once appropriate. cc: Clyde Villegas MD
[2019-10-23] MEDS: LOVENOX SUBQ SCH (16:49)
[2019-10-23] MEDS: MICRO-K PO SCH (17:51)
--- NOTE | 2019-10-23 19:44 | PULMONOLOGY PROGRESS NOTE ---
DATE: 10/23/2019 SUBJECTIVE: The patient is awake and alert. She continues to have audible rhonchi with coughing. OBJECTIVE: Vital Signs: The patient has been afebrile for the last 24 hours. Blood pressure 113/65, heart rate 62, respiratory rate 14, oxygen saturation 91%. HEENT: Pupils are equal. Oropharynx appears clear. Neck: Is supple. Chest: Reveals rhonchi bilaterally. Cardiac exam: S1 and S2. Abdomen: Soft. Extremities: Without edema. LABORATORIES: White blood count 13.72, hemoglobin 12.0, platelet count 404,000. Sputum culture reveals gram-negative rods. IMPRESSION: 1. A 69-year-old with fluctuating infiltrates with new sputum culture revealing gram-negative mary. 2. Background pulmonary fibrosis. 3. Dysphagia. 4. Dyspnea. 5. Severe deconditioning. 6. Chronic depression. PLAN: 1. Continue current antibiotic regimen pending results of sputum cultures. 2. Continue steroid regimen. 3. Continue incentive spirometry. 4. Consider CT scan and bronchoscopy as outlined 10/22/2019. cc: MD Clyde Donohue MD
[2019-10-23] MEDS: TOPAMAX PO SCH (20:23)
[2019-10-23] MEDS: ALLEGRA PO SCH (20:23)
[2019-10-23] MEDS: CARDIZEM LA PO SCH (20:23)
[2019-10-23] MEDS: PROTONIX [NONFORMULARY] PO SCH (20:23)
[2019-10-24] MEDS: TAZIDIME 2 GM/NS 2 GM/100 ML IVPB IV SCH (06:01)
[2019-10-24] MEDS: BENTYL PO SCH ×3 (06:02→17:58)
[2019-10-24] MEDS: BUSPAR PO SCH ×3 (06:02→20:28)
[2019-10-24] MEDS: SYNTHROID PO SCH (06:02)
[2019-10-24] MEDS: ATROVENT NEB INH SCH ×5 (07:40→23:59)
[2019-10-24] MEDS: XOPENEX NEB INH SCH ×5 (07:40→23:59)
[2019-10-24] MEDS: BETAPACE PO SCH ×2 (08:31→20:28)
[2019-10-24] MEDS: PEPCID PO SCH (08:31)
[2019-10-24] MEDS: DITROPAN XL PO SCH (08:31)
[2019-10-24] MEDS: NEURONTIN PO SCH ×3 (08:31→20:27)
[2019-10-24] MEDS: MICRO-K PO SCH (08:31)
[2019-10-24] MEDS: LASIX PO SCH (08:31)
[2019-10-24] MEDS: PREDNISONE PO SCH (08:31)
[2019-10-24] MEDS: ZOVIRAX PO SCH (08:31)
[2019-10-24] MEDS: CULTURELLE PO SCH ×2 (08:31→20:28)
[2019-10-24] MEDS: CYMBALTA PO SCH ×2 (08:31→20:28)
[2019-10-24] MEDS: FLONASE NAS SCH ×2 (08:32→20:29)
[2019-10-24] MEDS: MUCINEX DM PO SCH ×2 (08:32→20:27)
[2019-10-24] MEDS: ESTRACE PO SCH (08:32)
[2019-10-24] MEDS: MYCOSTATIN SUSP PO SCH ×4 (08:32→20:28)
[2019-10-24] MEDS: LEVAQUIN 500 MG/D5W 500 MG/100 ML IVPB IV SCH (10:39)
[2019-10-24] MEDS: ZOSYN 4.5 GM in NS 100 ML IV SCH ×2 (12:14→17:58)
--- NOTE | 2019-10-24 15:53 | PROGRESS NOTE ---
DATE: 10/24/2019 SUBJECTIVE: Upon my arrival this morning, patient was working with physical therapy. Overall, she remains very weak. She continues to have a considerable cough and congestion. Oxygenation, however, is adequate. She denies fevers, chills, nausea, vomiting, or chest discomfort. OBJECTIVE: Vital Signs: T-max 98.4 degrees, heart rate 61-94, respirations 16-20, blood pressure 101-143/66-75. General: Chronically ill appearing, no acute distress. Cardiovascular: Regular rate and rhythm. No significant murmurs, rubs, or gallops. Pulmonary: Crackles at the left base. Rhonchi and wheezing throughout the right lung field. Reasonable air movement. Abdomen: Soft, nontender, nondistended. Positive bowel sounds. Extremities: Moves all extremities well. No significant clubbing, cyanosis, or edema. Dermatologic: Evaluation reveals no evidence of rash. LABORATORY DATA: None. ASSESSMENT AND PLAN: 1. Hypoxic respiratory failure-this is a consequence of bronchopneumonia, volume overload and underlying pulmonary inflammation/pulmonary fibrosis. We will continue to encourage incentive spirometry, aspiration precautions, pulmonary toilet, and actually oxygen per protocol. We will treat each condition as described below. 2. Bronchopneumonia-initial sputum culture returned positive for pseudomonas. Repeat sputum culture demonstrates an alternative just demonstrates a pseudomonas with different sensitivities. We will transition patient to levofloxacin and Zosyn therapy. We will remain aware that Zosyn potentially caused transaminitis recently. We will also remain aware that levofloxacin can interact with sotalol. We will plan to check an EKG each day to ensure that there are no significant changes. At this point, the benefits of treatment outweigh the risk. We will encourage incentive spirometry, and pulmonary toilet. 3. Volume overload-the patient does appear to be euvolemic with Lasix therapy. We will continue this. 4. Pulmonary fibrosis/pulmonary inflammation-we will continue patient on prednisone 40 mg daily. At this point, I suspect this condition is reasonably controlled. If patient continues to have a decline, we will consider bronchoscopy evaluation. 5. Urinary tract infection-urine grew Enterobacter cloacae upon admission. She is adequately treated at present time. 6. Transaminitis-patient has achieved improvement since discontinuing Zosyn. We will need to monitor this with resuming Zosyn therapy. At this point, the benefits of treatment outweigh the risk. We will follow up culture data. 7. Somnolence-the patient continues to have intermittent somnolence. This likely is multifactorial. His gabapentin has been decreased. Her cyclobenzaprine has been discontinued. We will continue to encourage activity with physical therapy. 8. Paroxysmal atrial fibrillation-the patient remains in a sinus-generated rhythm with sotalol and diltiazem therapy. I plan to discuss possibly decreasing the dose of sotalol with Cardiology. 9. Hypothyroidism-we will continue patient on levothyroxine replacement. 10. Depression/anxiety/chronic pain-we will continue duloxetine and gabapentin therapy. 11. Cutaneous Opal-we will continue patient on topical nystatin. 12. Profound weakness-unfortunately, patient continues to have considerable weakness despite physical therapy. She will likely require rehabilitation once clinically stable. 13. Disposition. At this point, patient continues to require retirement care in a hospital setting. We will plan to rehabilitation once appropriate. cc: Clyde Villegas MD
[2019-10-24] MEDS: LOVENOX SUBQ SCH (17:58)
--- NOTE | 2019-10-24 19:40 | PULMONOLOGY PROGRESS NOTE ---
DATE: 10/24/2019 SUBJECTIVE: The patient is awake and alert. She has been practicing her cough all day and she sounds less productive this afternoon. OBJECTIVE: Vital Signs: The patient has been afebrile for the last 24 hours. Blood pressure 101/75, heart rate 72, respiratory rate 16, oxygen saturation 98% on 2 L. HEENT: Pupils are equal and reactive. Oropharynx appears clear. Neck: Is supple. Chest: Reveals crackles in both lung bases with occasional rhonchi bilaterally. Cardiac: Exam S1-S2. Abdomen: Is soft. Extremities: Without edema. LABORATORIES: Sputum culture has returned and is growing Pseudomonas aeruginosa, which is resistant to ceftazidime. Zosyn was not listed, and this was discussed with microbiology and a disk is being placed. IMPRESSION: A 69-year-old with 1. Chronic pulmonary fibrosis. 2. Acute gram-negative pneumonia. Pseudomonas has been re-identified with a different sensitivity pattern. 3. Dysphagia. 4. Dyspnea. 5. Severe deconditioning. 6. Chronic depression. DISCUSSION: A 69-year-old with problems outlined above. Patient's chest x-ray has worsened and she has had an identification of a sputum culture which is resistant to ceftazidime. The patient is on sotalol and her QT interval will need to be followed while taking Levaquin. RECOMMENDATION: 1. Re-initiate Levaquin with monitoring of EKG. 2. Re-initiate Zosyn pending results of Zosyn testing. If Zosyn is resistant, it would be discontinued. 3. Continue bronchial hygiene. 4. Overall prognosis is guarded. cc: MD Clyde Donohue MD
[2019-10-24] MEDS: TOPAMAX PO SCH (20:27)
[2019-10-24] MEDS: PROTONIX [NONFORMULARY] PO SCH (20:28)
[2019-10-24] MEDS: ALLEGRA PO SCH (20:28)
[2019-10-24] MEDS: CARDIZEM LA PO SCH (20:28)
[2019-10-25] MEDS: ZOSYN 4.5 GM in NS 100 ML IV SCH ×2 (00:43→05:38)
[2019-10-25] MEDS: BENTYL PO SCH ×4 (05:38→16:27)
[2019-10-25] MEDS: BUSPAR PO SCH ×3 (05:38→21:12)
[2019-10-25] MEDS: SYNTHROID PO SCH ×2 (05:39→06:07)
--- NOTE | 2019-10-25 06:40 | EKG Report ---
Test Performed on : 10/25/2019 06:04:53 AM Test Reason : drug monitoring Blood Pressure : / mmHG Vent. Rate : 067 BPM Atrial Rate : 067 BPM P-R Int : 162 ms QRS Dur : 130 ms QT Int : 458 ms P-R-T Axes : 035 -52 -16 degrees QTc Int : 483 ms Normal sinus rhythm. Right bundle branch block Left anterior fascicular block Bifascicular block Lateral infarct (cited on or before 28-SEP-2019) Abnormal ECG When compared with ECG of 19-OCT-2019 09:57, premature atrial complexes. are no longer present Confirmed by Rohan DUFF, Frankie Donohue ([id number]) on 10/26/2019 9:10:48 AM
[2019-10-25 06:58] LABS: AGAP 11; ALB/GLOB RATIO 0.9; ALBUMIN 2.7 g/dL (3.5-5.0); ALKALINE PHOSPHATASE 86 U/L (32-104); BUN 13 mg/dL (8-22); CALCIUM 8.7 mg/dL (8.8-10.2); CHLORIDE 98 mmol/L (98-107); COSMO 286; CREATININE 0.8 mg/dL (0.5-0.9); ESTIMATED GFR > 60; GLUCOSE 106 mg/dL (70-104); GOT 25 U/L (10-30); GPT 66 U/L (10-36); POTASSIUM 4.3 mmol/L (3.5-5.1); SODIUM 143 mmol/L (136-145); TCO2 34 mmol/L (25-35); TOTAL BILIRUBIN 0.31 mg/dL (0.20-1.00); TOTAL PROTEIN 5.8 g/dL (6.3-8.3)
[2019-10-25] MEDS: ATROVENT NEB INH SCH ×5 (07:56→23:25)
[2019-10-25] MEDS: XOPENEX NEB INH SCH ×5 (07:56→23:25)
[2019-10-25] MEDS: NEURONTIN PO SCH ×3 (08:27→21:11)
[2019-10-25] MEDS: DITROPAN XL PO SCH (08:27)
[2019-10-25] MEDS: LEVAQUIN 500 MG/D5W 500 MG/100 ML IVPB IV SCH (08:27)
[2019-10-25] MEDS: ZOVIRAX PO SCH (08:27)
[2019-10-25] MEDS: PREDNISONE PO SCH (08:27)
[2019-10-25] MEDS: BETAPACE PO SCH ×2 (08:27→21:11)
[2019-10-25] MEDS: MYCOSTATIN SUSP PO SCH ×4 (08:27→21:11)
[2019-10-25] MEDS: MUCINEX DM PO SCH ×2 (08:27→21:11)
[2019-10-25] MEDS: PEPCID PO SCH (08:27)
[2019-10-25] MEDS: ESTRACE PO SCH (08:27)
[2019-10-25] MEDS: MICRO-K PO SCH (08:27)
[2019-10-25] MEDS: CULTURELLE PO SCH ×2 (08:27→21:11)
[2019-10-25] MEDS: CYMBALTA PO SCH ×2 (08:27→21:12)
[2019-10-25] MEDS: LASIX PO SCH (08:27)
[2019-10-25] MEDS: FLONASE NAS SCH ×2 (08:28→21:12)
[2019-10-25] MEDS: LOVENOX SUBQ SCH (16:27)
[2019-10-25] MEDS ORDERED: TOBRAMYCIN IV PER PHARMACY MISC SCH (17:00)
--- NOTE | 2019-10-25 17:13 | PROGRESS NOTE ---
DATE: 10/25/2019 SUBJECTIVE: Upon my arrival this morning, the patient was sitting upright in the bed. Overall, she states she is doing reasonably well. Cough has slightly improved from yesterday. Energy level remains very low. She denies fevers, chills, nausea, vomiting, or chest discomfort. OBJECTIVE: T-max 97.7 degrees, heart rate 64 to 75, respirations 18 to 20, blood pressure 102- 124/49-81. General: Chronically ill-appearing, no acute distress. Cardiovascular: Regular rate and rhythm. No significant murmurs, rubs, or gallops. Pulmonary: Left lung with crackles at the bases. Adequate air movement. Right lung with crackles, rhonchi, and wheezing in the lower third, improved from yesterday. Abdomen: Soft, nontender, nondistended. Positive bowel sounds. Extremities: Moves all extremities well. No significant clubbing, cyanosis, or edema. Dermatologic: Evaluation reveals no evidence of rash. Laboratory Data: Sodium 143, potassium 4.3, chloride 98, bicarb 34, BUN 13, creatinine 0.8, glucose 106, calcium 8.7. Total bilirubin 0.31, total protein 5.8, albumin 2.7, alkaline phosphatase 86. AST 25, ALT 66. ASSESSMENT AND PLAN: 1. Hypoxic respiratory failure-as noted on previous visits, this is a consequence of bronchial pneumonia, volume overload, and pulmonary inflammation/pulmonary fibrosis. We will encourage total pulmonary toilet with incentive spirometry, aspirate precautions, and oxygen per protocol. We will treat each condition as below. 2. Bronchopneumonia-sputum culture again grew pseudomonas. Unfortunately, this was resistant to ceftazidime and Zosyn therapy. The patient has been transitioned to levofloxacin. We will remain aware that this does interact with sotalol; however, there is not a good alternative. We will monitor electrocardiograms for evidence of prolonged QT interval. 3. Volume overload-the patient's volume status is stable with Lasix. This will be continued. 4. Pulmonary fibrosis/pulmonary inflammation-the patient is being treated with prednisone 40 mg daily. The condition appears to be reasonably stable. At some point, patient may benefit from bronchoscopy evaluation. 5. Urinary tract infection-urine culture grew Enterobacter cloacae. She has been adequately treated at the present time. 6. Transaminitis-this likely was Zosyn associated. With discontinuing Zosyn, the transaminases have improved, approaching normal. 7. Somnolence-the patient has achieved improvement with decreasing gabapentin and discontinuing cyclobenzaprine. We will encourage activity and physical therapy. 8. Paroxysmal atrial fibrillation-the patient remains in a sinus-generated rhythm on sotalol and diltiazem therapy. We will continue each of these. We will remain aware that levofloxacin and sotalol do interact. The benefits of treatment outweigh the risk. 9. Hypothyroidism-we will continue the patient on levothyroxine replacement. 10. Depression/anxiety/chronic pain-patient will continue duloxetine and gabapentin therapy. Symptoms are stable. 11. 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 12. Profound weakness-this is considerable. We will continue physical therapy for now. Patient will likely require rehabilitation at discharge. 13. Disposition-at this point, the patient continues to require [facility] care in a hospital setting. We will plan discharge home once appropriate. cc: Clyde Villegas MD
[2019-10-25] MEDS ORDERED: NS IV SCH (18:00)
[2019-10-25] MEDS ORDERED: TOBRAMYCIN IV SCH (18:00)
--- NOTE | 2019-10-25 20:01 | PULMONOLOGY PROGRESS NOTE ---
DATE: 10/25/2019 SUBJECTIVE: The patient is awake and alert. She is currently sitting in a chair. She appears to be more cheerful than yesterday. She continues to have a slightly wet cough. OBJECTIVE: Vital Signs: The patient has been afebrile for the last 24 hours. Blood pressure 102/52, heart rate 75, respiratory rate 18, oxygen saturation 100% on 2 L per nasal cannula. HEENT: Pupils are equal and reactive. Oropharynx is clear. Neck: Supple. Chest: Crackles bilaterally with occasional rhonchi. Cardiac: S1, S2. Abdomen: Soft. Extremities: Without edema. LABORATORIES: Microbiology reveals a Pseudomonas which is resistant to cefepime, ceftazidime, and Zosyn. IMPRESSION: A 69-year-old with: 1. Pulmonary fibrosis. 2. Gram-negative pneumonia with drug-resistant Pseudomonas. 3. Dysphagia. 4. Severe deconditioning. 5. Dyspnea. 6. Chronic depression. PLAN: 1. Continue Levaquin with monitoring of electrocardiogram. 2. Discontinue Zosyn. Would like to add a second agent and she will be initiated on tobramycin. She will need close monitoring of her kidney function. 3. Continue bronchial hygiene. 4. Repeat C-reactive protein. If her C-reactive protein is decreasing, I would like to further decrease her prednisone. cc: MD Clyde Donohue MD
[2019-10-25] MEDS: CARDIZEM LA PO SCH (21:11)
[2019-10-25] MEDS: ALLEGRA PO SCH (21:11)
[2019-10-25] MEDS: TOPAMAX PO SCH (21:12)
[2019-10-25] MEDS: PROTONIX [NONFORMULARY] PO SCH (21:12)
[2019-10-26 05:57] LABS: BASO# 0.14 X1000 (0.0-0.2); BASO% 0.9 % (0.0-0.8); EOS# 0.03 X1000 (0.0-0.7); EOS% 0.2 % (0.0-10.0); HEMATOCRIT 39.5 % (37.0-47.0); HEMOGLOBIN 12.3 g/dL (12.0-16.0); IMM GRAN# 1.03 X1000 (0.0-0.04); IMM GRAN% 6.9 % (0.0-0.5); LYMPH# 1.88 X1000 (1.2-3.4); LYMPH% 12.6 % (20.5-51.1); MCH 30.1 PG (27-31); MCHC 31.1 g/dL (33-37); MCV 96.6 FL (81-99); MONO# 1.42 X1000 (0.11-0.59); MONO% 9.5 % (1.7-9.3); MPV 9.5 FL (7.4-10.4); NEUT# 10.39 X1000 (1.4-6.5); NEUT% 69.9 % (42.2-75.2); PLT 427 X1000 (130-400); RBC 4.09 XMIL (4.2-5.4); RDW 15.9 % (11.5-14.5); WBC 14.89 X1000 (4.8-10.8)
[2019-10-26 06:20] LABS: AGAP 12; ALB/GLOB RATIO 0.9; ALKALINE PHOSPHATASE 91 U/L (32-104); BUN 14 mg/dL (8-22); CALCIUM 9.3 mg/dL (8.8-10.2); CHLORIDE 96 mmol/L (98-107); COSMO 278; CREATININE 0.9 mg/dL (0.5-0.9); ESTIMATED GFR > 60; GLUCOSE 102 mg/dL (70-104); GOT 25 U/L (10-30); GPT 59 U/L (10-36); POTASSIUM 4.1 mmol/L (3.5-5.1); RANDOM TOBRAMYCIN 6.93 ug/mL; SODIUM 139 mmol/L (136-145); TCO2 31 mmol/L (25-35); TOTAL BILIRUBIN 0.31 mg/dL (0.20-1.00); TOTAL PROTEIN 6.4 g/dL (6.3-8.3)
[2019-10-26] MEDS: BUSPAR PO SCH ×3 (06:25→20:28)
[2019-10-26] MEDS: SYNTHROID PO SCH (06:25)
[2019-10-26] MEDS: BENTYL PO SCH ×3 (06:25→16:25)
[2019-10-26 06:44] LABS: C REACTIVE PROT QUANT 13.75 mg/L (0.00-5.00)
--- NOTE | 2019-10-26 07:06 | Diag Imaging Result Doc PS360 ---
EXAM: CHEST-1 VIEW INDICATION: pneumonia TECHNIQUE: One view COMPARISON: 10/22/2019 FINDINGS: There has been some improvement of consolidation at the right lower lung zone. The milder consolidation on the left is essentially stable. No new consolidation is identified. Cardiac silhouette is stable. IMPRESSION: Interval slight improvement. Electronically signed by Alex Vega 10/26/2019 7:04 AM
--- NOTE | 2019-10-26 07:06 | EKG Report ---
Test Performed on : 10/26/2019 06:53:39 AM Test Reason : drug monitoring Blood Pressure : / mmHG Vent. Rate : 067 BPM Atrial Rate : 067 BPM P-R Int : 160 ms QRS Dur : 126 ms QT Int : 456 ms P-R-T Axes : 040 -69 -20 degrees QTc Int : 481 ms Normal sinus rhythm. Right bundle branch block Left anterior fascicular block Bifascicular block Possible Lateral infarct (cited on or before 28-SEP-2019) Abnormal ECG When compared with ECG of 25-OCT-2019 06:04, (Unconfirmed) T wave inversion less evident in Anterior leads Confirmed by Rohan DUFF, Frankie Donohue ([id number]) on 10/26/2019 9:11:37 AM
[2019-10-26] MEDS: XOPENEX NEB INH SCH ×5 (08:10→22:50)
[2019-10-26] MEDS: ATROVENT NEB INH SCH ×5 (08:10→22:50)
[2019-10-26] MEDS: ESTRACE PO SCH (08:54)
[2019-10-26] MEDS: BETAPACE PO SCH ×2 (08:54→20:27)
[2019-10-26] MEDS: MICRO-K PO SCH (08:54)
[2019-10-26] MEDS: CULTURELLE PO SCH ×2 (08:54→20:27)
[2019-10-26] MEDS: MYCOSTATIN SUSP PO SCH ×4 (08:54→20:26)
[2019-10-26] MEDS: PEPCID PO SCH (08:54)
[2019-10-26] MEDS: PREDNISONE PO SCH (08:55)
[2019-10-26] MEDS: CYMBALTA PO SCH ×2 (08:55→20:26)
[2019-10-26] MEDS: NEURONTIN PO SCH ×3 (08:55→20:27)
[2019-10-26] MEDS: MUCINEX DM PO SCH ×2 (08:55→20:28)
[2019-10-26] MEDS: LASIX PO SCH (08:55)
[2019-10-26] MEDS: LEVAQUIN 500 MG/D5W 500 MG/100 ML IVPB IV SCH (08:55)
[2019-10-26] MEDS: ZOVIRAX PO SCH (08:55)
[2019-10-26] MEDS: FLONASE NAS SCH ×2 (09:00→20:28)
[2019-10-26] MEDS: DITROPAN XL PO SCH (09:00)
--- NOTE | 2019-10-26 15:11 | PROGRESS NOTE ---
DATE: 10/26/2019 SUBJECTIVE: Upon my arrival, patient was sitting upright in a chair. Her demeanor was slightly brighter than yesterday. She continues to have cough, congestion, and weakness, although this is slowly improving. Her p.o. intake is adequate. She denies fevers, chills, nausea, vomiting, or chest discomfort. OBJECTIVE: Vital signs: T-max 98.6 degrees, heart rate 66 to 78, respirations 16 to 20, blood pressure 102 to 141 over 55 to 70. General: Chronically ill appearing, no acute distress. Cardiovascular: Regular rate and rhythm. No significant murmurs, rubs, or gallops. Pulmonary: Crackles at the lower lung field on the left. Rhonchi and wheezing on the lower lung field on the right, improving air movement. Abdomen: Soft, nontender, nondistended. Positive bowel sounds. Extremities: Moves all extremities well. No significant clubbing, cyanosis, or edema. Dermatologic: Evaluation reveals no evidence of rash. LABORATORY DATA: White blood cell count 14.89, hemoglobin 12.3, hematocrit 39.5, platelet count 427,000. Sodium 139, potassium 4.1, chloride 96, bicarb 31, BUN 14, creatinine 0.9, glucose 102, calcium 9.3, total bilirubin 0.31, total protein 6.4, albumin 3.0, alkaline phosphatase 91, AST 25, ALT 59. ASSESSMENT AND PLAN: 1. Hypoxic respiratory failure-this is secondary to a combination of bilateral bronchopneumonia, volume overload and pulmonary inflammation/pulmonary fibrosis. We will continue aggressive intervention as described below. 2. Bronchopneumonia-sputum culture again grew Pseudomonas. Unfortunately, this has a different resistant pattern. Patient has been transitioned to levofloxacin and tobramycin therapy. We will continue to follow serial EKG evaluations in the setting of drug interaction with levofloxacin and sotalol. The benefits outweigh the risk of treatment at present time. We will continue to encourage incentive spirometry, aspiration precautions, oxygen per protocol, and pulmonary toilet. 3. Volume overload - The patient appears euvolemic. We will continue Lasix therapy. 4. Pulmonary fibrosis/pulmonary inflammation. We will continue prednisone therapy. Overall, her condition is slowly improving. She likely will require further evaluation as an outpatient once her condition has stabilized. 5. Urinary tract infection-urine culture grew Enterobacter cloacae. She has been adequately treated at present time. 6. Transaminitis-this likely is a consequence of Zosyn therapy. With discontinuing Zosyn, transaminases have improved. 7. Somnolence. The patient has achieved improvement with decreasing gabapentin and discontinuing cyclobenzaprine therapy. We will continue to encourage activity and physical therapy. I anticipate with improvement in her overall conditions as described above, this will further improve. 8. Paroxysmal atrial fibrillation - The patient remained in a sinus-generated rhythm with sotalol and diltiazem therapy. We will remain aware. 9. Hypothyroidism. We will continue patient on levothyroxine replacement. 10. Depression/anxiety/chronic pain. Patient's symptoms are controlled with duloxetine and gabapentin therapy. 11. Cutaneous Opal. We will continue topical nystatin. Symptoms are controlled. 12. Profound weakness. We will continue to encourage physical therapy. She likely will require rehabilitation at discharge. 13. Disposition. At this point, patient continues to require custodial care in a hospital setting. We will plan discharge to rehabilitation once appropriate. cc: Clyde Villegas MD
[2019-10-26] MEDS: LOVENOX SUBQ SCH (16:25)
[2019-10-26] MEDS: CARDIZEM LA PO SCH (20:27)
[2019-10-26] MEDS: ALLEGRA PO SCH (20:27)
[2019-10-26] MEDS: TOPAMAX PO SCH (20:27)
[2019-10-26] MEDS: PROTONIX [NONFORMULARY] PO SCH (20:28)
[2019-10-27] MEDS: BUSPAR PO SCH ×3 (06:08→21:50)
[2019-10-27] MEDS: BENTYL PO SCH ×3 (06:08→17:41)
[2019-10-27] MEDS: SYNTHROID PO SCH (06:08)
[2019-10-27 07:13] LABS: AGAP 13; ALB/GLOB RATIO 0.9; ALBUMIN 2.8 g/dL (3.5-5.0); ALKALINE PHOSPHATASE 82 U/L (32-104); BUN 14 mg/dL (8-22); CALCIUM 9.4 mg/dL (8.8-10.2); CHLORIDE 98 mmol/L (98-107); COSMO 282; CREATININE 0.8 mg/dL (0.5-0.9); ESTIMATED GFR > 60; GLUCOSE 97 mg/dL (70-104); GOT 24 U/L (10-30); GPT 45 U/L (10-36); SODIUM 141 mmol/L (136-145); TCO2 30 mmol/L (25-35); TOTAL BILIRUBIN 0.22 mg/dL (0.20-1.00); TOTAL PROTEIN 5.9 g/dL (6.3-8.3)
--- NOTE | 2019-10-27 07:33 | EKG Report ---
Test Performed on : 10/27/2019 06:49:59 AM Test Reason : drug monitoring Blood Pressure : / mmHG Vent. Rate : 067 BPM Atrial Rate : 067 BPM P-R Int : 160 ms QRS Dur : 126 ms QT Int : 446 ms P-R-T Axes : 042 -68 -01 degrees QTc Int : 471 ms Normal sinus rhythm. Right bundle branch block Left anterior fascicular block Bifascicular block Possible Lateral infarct (cited on or before 28-SEP-2019) Abnormal ECG When compared with ECG of 26-OCT-2019 06:53, Non-specific change in ST segment in Anterior leads Confirmed by Rohan DUFF, Frankie Donohue ([id number]) on 10/30/2019 9:39:15 AM
[2019-10-27] MEDS: XOPENEX NEB INH SCH ×5 (08:03→23:47)
[2019-10-27] MEDS: ATROVENT NEB INH SCH ×5 (08:03→23:47)
[2019-10-27] MEDS: BETAPACE PO SCH ×2 (09:50→21:50)
[2019-10-27] MEDS: CULTURELLE PO SCH ×2 (09:50→21:50)
[2019-10-27] MEDS: NEURONTIN PO SCH ×3 (09:50→21:50)
[2019-10-27] MEDS: ZOVIRAX PO SCH (09:50)
[2019-10-27] MEDS: PEPCID PO SCH (09:50)
[2019-10-27] MEDS: PREDNISONE PO SCH (09:50)
[2019-10-27] MEDS: CYMBALTA PO SCH ×2 (09:50→21:51)
[2019-10-27] MEDS: LASIX PO SCH (09:50)
[2019-10-27] MEDS: MYCOSTATIN SUSP PO SCH ×4 (09:50→21:50)
[2019-10-27] MEDS: MUCINEX DM PO SCH ×2 (09:51→21:50)
[2019-10-27] MEDS: DITROPAN XL PO SCH (09:51)
[2019-10-27] MEDS: ESTRACE PO SCH (09:51)
[2019-10-27] MEDS: FLONASE NAS SCH ×2 (09:52→21:54)
[2019-10-27] MEDS: MICRO-K PO SCH (09:52)
[2019-10-27] MEDS: LEVAQUIN 500 MG/D5W 500 MG/100 ML IVPB IV SCH (09:53)
--- NOTE | 2019-10-27 13:28 | Diag Imaging Result Doc PS360 ---
KNEE 1-2 VIEWS-RIGHT - 10/27/2019 INDICATION: Inj/Pain R knee TECHNIQUE: Two views COMPARISON: None FINDINGS: Bones are intact and normally aligned. Joint spaces and soft tissues are clear. IMPRESSION: Negative exam. Electronically signed by Dejon Rossi 10/27/2019 1:25 PM
--- NOTE | 2019-10-27 13:44 | PROGRESS NOTE ---
DATE: 10/27/2019 SUBJECTIVE: Patient is awake in chair, afebrile and no change in baseline. OBJECTIVE: Vital signs: Noted. Head and neck exam: Trachea is midline. Chest: On chest examination, there are bilateral coarse crackles. Cardiac exam: S1, S2. Abdomen: Exam nontender. Extremities: Examination revealed +1 pedal edema. Neurological exam: Awake and communicative. LABS/INVESTIGATIONS: CMP from October 26 noted with potassium being 4.0. Chest x-rays from yesterday: Pulse oximetry is 100 percent on nasal cannula. Other vital signs were noted. ASSESSMENT: A 69-year-old female with extensive pulmonary fibrosis. 1. Pulmonary fibrosis. 2. Pneumonia. 3. Chronic compensated respiratory failure. PLAN: 1. Continue antibiotics. 2. We titrated oxygen to patient needs and will closely monitor her oxygenation and adjust our clinical protocols. 3. Continue steroids with prednisone 4 mg daily. cc: MD Clyde Chaparro MD
[2019-10-27] MEDS: LOVENOX SUBQ SCH (17:41)
[2019-10-27] MEDS: TOBRAMYCIN IV SCH (18:17)
[2019-10-27] MEDS: NS IV SCH (18:17)
--- NOTE | 2019-10-27 20:06 | PROGRESS NOTE ---
DATE: 10/27/2019 SUBJECTIVE: Upon my arrival, the patient was sitting upright in her chair. The patient stated that she was quite tired as well as complaining of right knee pain. The patient states this was a result of a recent fall. From a pulmonary standpoint, overall she continues to slowly improve. She denies fevers, chills, nausea, vomiting, or chest discomfort. OBJECTIVE: Vital Signs: T-max 97.6, heart rate 71 to 76, respirations 14 to 18, blood pressure 96 to 114 over 63 to 73. General: Chronically ill appearing, in no acute distress. Cardiovascular: Regular rate and rhythm. No significant murmurs, rubs, or gallops. Pulmonary: Crackles at the left base. Crackles, rhonchi, and occasional wheezing on the right extending to the mid lung field. Abdomen: Soft, nontender, nondistended. Positive bowel sounds. Extremities: Moves all extremities well. No significant clubbing, cyanosis, or edema. Dermatologic: Evaluation reveals no evidence of rash. LABORATORY DATA: Sodium 140, potassium 4.0, chloride 98, bicarb 30, BUN 14, creatinine 0.8, glucose 97, calcium 9.4. Total bilirubin 0.22, total protein 5.9, albumin 2.8, alkaline phosphatase 82, AST 24, ALT 45. ASSESSMENT AND PLAN: 1. Hypoxic respiratory failure - patient continues to demonstrate slow improvement with treatment of her bronchopneumonia, volume overload and pulmonary inflammation. Will treat each of these as below. 2. Bronchopneumonia - sputum cultures returned positive for Pseudomonas on 2 separate occasions with 2 different sensitivity patterns. We will continue patient on levofloxacin and tobramycin therapy. We will follow serial EKG evaluations in the setting of levofloxacin interacting with sotalol. Incentive spirometry, aspiration precautions, oxygen per protocol, and pulmonary toilet will be continued as well. 3. Volume overload - patient remains euvolemic on Lasix therapy. 4. Pulmonary fibrosis/pulmonary inflammation - symptoms are very slowly improving. We will continue prednisone therapy. 5. Urinary tract infection - patient is adequately treated for Enterobacter cloacae. 6. Transaminitis - patient is demonstrating improvement with discontinuing Zosyn therapy. 7. Paroxysmal atrial fibrillation - the patient remained in a sinus-generated rhythm with sotalol and diltiazem therapy. As above, we were monitoring for any EKG changes associated with an interaction of sotalol and Levaquin. 8. Hypothyroidism - we will continue patient on replacement. 9. Depression/anxiety/chronic pain - symptoms are reasonably controlled with gabapentin and duloxetine therapy. 10. Cutaneous Opal - will continue topical nystatin. 11. Right knee pain. X-ray demonstrates no evidence of acute disease. I suspect this is secondary to a knee sprain. We will treat symptomatically. 12. Profound weakness - will continue physical therapy. The patient will likely require rehabilitation at discharge. 13. Disposition. At this point, patient continues to require care home care in a hospital setting. We will plan discharge to rehabilitation once appropriate. cc: Clyde Villegas MD
[2019-10-27] MEDS: PROTONIX [NONFORMULARY] PO SCH (21:50)
[2019-10-27] MEDS: ALLEGRA PO SCH (21:50)
[2019-10-27] MEDS: CARDIZEM LA PO SCH (21:50)
[2019-10-27] MEDS: TOPAMAX PO SCH (21:51)
[2019-10-28] MEDS: XOPENEX NEB INH SCH ×6 (03:57→23:05)
[2019-10-28] MEDS: ATROVENT NEB INH SCH ×6 (03:57→23:05)
[2019-10-28] MEDS: SYNTHROID PO SCH (06:05)
[2019-10-28] MEDS: BENTYL PO SCH ×3 (06:05→16:00)
[2019-10-28] MEDS: BUSPAR PO SCH ×3 (06:05→20:57)
[2019-10-28 07:18] LABS: AGAP 12; ALB/GLOB RATIO 1.1; ALBUMIN 3.2 g/dL (3.5-5.0); ALKALINE PHOSPHATASE 87 U/L (32-104); BUN 15 mg/dL (8-22); CALCIUM 9.6 mg/dL (8.8-10.2); CHLORIDE 93 mmol/L (98-107); COSMO 273; CREATININE 0.9 mg/dL (0.5-0.9); ESTIMATED GFR > 60; GLUCOSE 104 mg/dL (70-104); GOT 25 U/L (10-30); GPT 43 U/L (10-36); POTASSIUM 4.1 mmol/L (3.5-5.1); SODIUM 136 mmol/L (136-145); TCO2 31 mmol/L (25-35); TOTAL BILIRUBIN 0.31 mg/dL (0.20-1.00)
[2019-10-28] MEDS: FLONASE NAS SCH (08:53)
[2019-10-28] MEDS: ZOVIRAX PO SCH (08:53)
[2019-10-28] MEDS: DITROPAN XL PO SCH (08:53)
[2019-10-28] MEDS: MUCINEX DM PO SCH ×2 (08:54→20:57)
[2019-10-28] MEDS: PREDNISONE PO SCH (08:54)
[2019-10-28] MEDS: CULTURELLE PO SCH ×2 (08:54→20:57)
[2019-10-28] MEDS: BETAPACE PO SCH ×2 (08:55→20:57)
[2019-10-28] MEDS: ESTRACE PO SCH (08:55)
[2019-10-28] MEDS: LASIX PO SCH (08:55)
[2019-10-28] MEDS: MICRO-K PO SCH (08:55)
[2019-10-28] MEDS: CYMBALTA PO SCH ×2 (08:55→20:57)
[2019-10-28] MEDS: LEVAQUIN 500 MG/D5W 500 MG/100 ML IVPB IV SCH (08:56)
[2019-10-28] MEDS: PEPCID PO SCH (08:56)
[2019-10-28] MEDS: MYCOSTATIN SUSP PO SCH ×4 (08:56→20:57)
[2019-10-28] MEDS: NEURONTIN PO SCH ×3 (08:56→20:57)
--- NOTE | 2019-10-28 10:03 | EKG Report ---
Test Performed on : 10/28/2019 06:00:42 AM Test Reason : drug monitoring Blood Pressure : / mmHG Vent. Rate : 073 BPM Atrial Rate : 073 BPM P-R Int : 154 ms QRS Dur : 120 ms QT Int : 436 ms P-R-T Axes : 049 -60 -07 degrees QTc Int : 480 ms Normal sinus rhythm. Right bundle branch block Left anterior fascicular block Bifascicular block Possible Lateral infarct , age undetermined Abnormal ECG No previous ECGs available Confirmed by Rohan DUFF, Frankie Donohue ([id number]) on 10/30/2019 9:39:59 AM
--- NOTE | 2019-10-28 14:07 | PROGRESS NOTE ---
DATE: 10/28/2019 SUBJECTIVE: The patient is awake in bed. She feels okay. She complains about lack of sleep. OBJECTIVE: Vital signs: Noted. Head and neck examined. Trachea midline. Chest: Coarse crackles bilaterally. Cardiac: S1, S2. Abdomen: No tenderness. Extremities: +1 pedal edema. Neurologic: Awake and communicative. LABORATORIES AND INVESTIGATIONS: CMP from today seen. Creatinine 0.9. ASSESSMENT AND PLAN: 1. 69-year-old female with extensive pulmonary fibrosis. 2. Pneumonia. 3. Chronic compensated respiratory failure. PLAN: 1. Continue steroids of prednisone. 2. Continue antibiotics. 3. We titrated oxygen per patient needs and we closely are monitoring her oxygenation level and saturations and will adjust accordingly. cc: MD Clyde Chaparro MD
[2019-10-28] MEDS: LOVENOX SUBQ SCH ×2 (16:00→17:58)
--- NOTE | 2019-10-28 18:16 | PROGRESS NOTE ---
DATE: 10/28/2019 SUBJECTIVE: Upon my arrival in the early afternoon, the patient was resting in bed. The patient stated she had been up in a chair the vast majority of the morning. The patient continues to complain of shortness of breath; however, this is improving on a daily basis. She also complains of profound weakness. Yesterday, she complained of right knee pain. X-ray demonstrated no acute bony abnormalities. P.o. intake remains adequate. She denies fevers, chills, nausea, vomiting, or chest discomfort. OBJECTIVE: vital signs: T-max 98.7 degrees, heart rate 68 to 75, respirations 17 to 19, blood pressure 103 to 123 over 76 to 81. General: Chronically ill appearing. No acute distress. Cardiovascular: Regular rate and rhythm. No significant murmurs, rubs, or gallops. Pulmonary: Crackles in the lower third of bilateral bases. Occasional wheeze on the right. Improving air movement. Abdomen: Soft, nontender, nondistended. Positive bowel sounds. Extremities: Moves all extremities well. No significant clubbing, cyanosis, or edema. Dermatologic: Evaluation reveals no evidence of rash. LABORATORY DATA: Sodium 136, potassium 4.1, chloride 93, bicarb 31, BUN 15, creatinine 0.9, glucose 104, calcium 9.6, total bilirubin 0.31, total protein 6.0, albumin 3.2, alkaline phosphatase 87, AST 25, ALT 43. ASSESSMENT AND PLAN: 1. Hypoxic respiratory failure - This is a consequence of bronchopneumonia, volume overload, and pulmonary inflammation/pulmonary fibrosis. Each of these will be treated as described below. 2. Bronchopneumonia - The patient has grown Pseudomonas on 2 separate occasions in her sputum. The second had a different sensitivity pattern than the first. She currently is being treated with levofloxacin and tobramycin therapy. Clinically, she is improving. We will continue this as well as incentive spirometry, aspiration precautions, oxygen per protocol, and pulmonary toilet. 3. Volume overload - The patient is euvolemic with Lasix therapy. This will be continued. 4. Pulmonary fibrosis/pulmonary inflammation - The patient is being treated with prednisone 40 mg daily. At present time, her condition is reasonably stable. We will discuss this further with Dr. Rodriguez and will determine an appropriate taper beginning in the near future. 5. Urinary tract infection - the patient has been appropriately treated for Enterobacter cloacae. We will remain aware. 6. Transaminitis - The patient has achieved improvement since discontinuing Zosyn therapy. We will follow this. 7. Paroxysmal atrial fibrillation - The patient remains in a sinus-generated rhythm with diltiazem and sotalol therapy. We will remain aware that sotalol does interact with levofloxacin. At this point, the benefits of treatment outweigh the risk. Her EKG has been monitored and has demonstrated no evidence of Q-T prolongation. 8. Hypothyroidism - The patient is well controlled on replacement. 9. Depression/anxiety/chronic pain - Symptoms are reasonably controlled with gabapentin and duloxetine therapy. 10. Cutaneous Opal - We will continue the patient on topical nystatin. 11. Right knee pain - As above, x-ray demonstrated no evidence of bony abnormality. I suspect the patient suffered a knee sprain. We will continue physical therapy as tolerated. 12. Profound weakness - This is limiting her recovery. We will continue to encourage activity. We will continue physical therapy. She will require rehabilitation at time of discharge. DISPOSITION: At this point, the patient continues to require halfway care in a hospital setting. I plan to discuss case with Dr. Rodriguez in the morning and determine when he feels rehabilitation is appropriate. The patient is approaching that time. cc: Clyde Villegas MD
[2019-10-28] MEDS: ALLEGRA PO SCH (20:57)
[2019-10-28] MEDS: PROTONIX [NONFORMULARY] PO SCH (20:57)
[2019-10-28] MEDS: CARDIZEM LA PO SCH (20:57)
[2019-10-28] MEDS: TOPAMAX PO SCH (20:58)
[2019-10-29] MEDS: FLONASE NAS SCH ×3 (04:50→20:57)
[2019-10-29] MEDS: BUSPAR PO SCH ×3 (06:02→20:56)
[2019-10-29] MEDS: BENTYL PO SCH ×3 (06:02→16:47)
[2019-10-29] MEDS: SYNTHROID PO SCH (06:02)
[2019-10-29 06:08] LABS: AGAP 13; ALBUMIN 3.2 g/dL (3.5-5.0); ALKALINE PHOSPHATASE 90 U/L (32-104); BUN 14 mg/dL (8-22); C REACTIVE PROT QUANT 17.29 mg/L (0.00-5.00); CALCIUM 9.5 mg/dL (8.8-10.2); CHLORIDE 93 mmol/L (98-107); COSMO 280; CREATININE 0.8 mg/dL (0.5-0.9); ESTIMATED GFR > 60; GLUCOSE 108 mg/dL (70-104); GOT 24 U/L (10-30); GPT 42 U/L (10-36); POTASSIUM 3.5 mmol/L (3.5-5.1); SODIUM 140 mmol/L (136-145); TCO2 34 mmol/L (25-35); TOTAL BILIRUBIN 0.26 mg/dL (0.20-1.00); TOTAL PROTEIN 6.4 g/dL (6.3-8.3)
--- NOTE | 2019-10-29 07:19 | Diag Imaging Result Doc PS360 ---
EXAM: CHEST-1 VIEW 10/29/2019 HISTORY: SOB TECHNIQUE: AP portable at 0607 COMMENT: There is apical pleural thickening bilaterally. There is increased interstitial markings in both lung bases and to a lesser extent throughout the remaining lung minor. This has not changed since 10/26/2019. The lungs are slightly clearer than on 09/17/2019. IMPRESSION: Pleural and parenchymal fibrosis. The possibility of superimposed pneumonia or pulmonary edema cannot be excluded although this has apparently improved since previous studies. None of the parenchymal abnormalities were present at the time of the previous chest radiograph of 05/02/2015 however. Electronically signed by Henrry Buchanan 10/29/2019 7:17 AM
--- NOTE | 2019-10-29 07:29 | EKG Report ---
Test Performed on : 10/29/2019 06:51:39 AM Test Reason : drug monitoring Blood Pressure : / mmHG Vent. Rate : 067 BPM Atrial Rate : 067 BPM P-R Int : 154 ms QRS Dur : 124 ms QT Int : 464 ms P-R-T Axes : 028 -62 -04 degrees QTc Int : 490 ms Normal sinus rhythm. Right bundle branch block Left anterior fascicular block Bifascicular block Possible Lateral infarct (cited on or before 28-SEP-2019) Abnormal ECG When compared with ECG of 28-OCT-2019 06:00, (Unconfirmed) Serial changes of Lateral infarct present Confirmed by Rohan DUFF, Frankie Donohue ([id number]) on 10/30/2019 9:40:43 AM
[2019-10-29] MEDS: ATROVENT NEB INH SCH ×5 (08:23→23:36)
[2019-10-29] MEDS: XOPENEX NEB INH SCH ×5 (08:23→23:37)
[2019-10-29] MEDS: NEURONTIN PO SCH ×3 (09:54→20:56)
[2019-10-29] MEDS: PEPCID PO SCH (09:54)
[2019-10-29] MEDS: LASIX PO SCH (09:54)
[2019-10-29] MEDS: ESTRACE PO SCH (09:54)
[2019-10-29] MEDS: MYCOSTATIN SUSP PO SCH ×4 (09:54→20:57)
[2019-10-29] MEDS: MUCINEX DM PO SCH ×2 (09:54→20:56)
[2019-10-29] MEDS: CULTURELLE PO SCH ×2 (09:54→20:56)
[2019-10-29] MEDS: ZOVIRAX PO SCH (09:54)
[2019-10-29] MEDS: MICRO-K PO SCH (09:54)
[2019-10-29] MEDS: CYMBALTA PO SCH ×2 (09:54→20:56)
[2019-10-29] MEDS: BETAPACE PO SCH ×2 (09:54→20:57)
[2019-10-29] MEDS: DITROPAN XL PO SCH (09:54)
[2019-10-29] MEDS: PREDNISONE PO SCH (09:54)
[2019-10-29] MEDS: LEVAQUIN 500 MG/D5W 500 MG/100 ML IVPB IV SCH (09:55)
[2019-10-29] MEDS: LOVENOX SUBQ SCH (16:47)
[2019-10-29] MEDS: NS IV SCH (18:13)
[2019-10-29] MEDS: TOBRAMYCIN IV SCH (18:13)
--- NOTE | 2019-10-29 19:27 | PROGRESS NOTE ---
DATE: 10/29/2019 SUBJECTIVE: Upon my arrival this morning, patient stated she was doing reasonably well. She was sitting upright in her chair. She continues to have cough, congestion, and weakness. This, however, is improving on a daily basis. She denies fevers, chills, nausea, vomiting, or chest discomfort. OBJECTIVE: T-max 98.1, heart rate 60 to 76, respirations 16 to 24, blood pressure 106 to 114 over 39 to 63.General: Chronically ill appearing, no acute distress. Cardiovascular: Regular rate and rhythm. No significant murmurs, rubs, or gallops. Pulmonary: Crackles at bilateral bases. Occasional wheeze at the right base. Improving air movement. Abdomen: Soft, nontender, nondistended. Positive bowel sounds. Extremities: Moves all extremities well. No significant clubbing, cyanosis, or edema. Dermatologic: Evaluation reveals no evidence of rash. LABORATORY DATA: Sodium 140, potassium 3.5, chloride 93, bicarb 34, BUN 14, creatinine 0.8, glucose 108, calcium 9.5, total bilirubin 0.26, total protein 6.4, albumin 3.2, alkaline phosphatase 90, AST 24, ALT 42. Sedimentation rate 66. CRP 17.29. Chest x-ray reveals pleural and parenchymal fibrosis. Possibility of superimposed pneumonia or pulmonary edema cannot be excluded, although this has apparently improved since previous studies. ASSESSMENT AND PLAN: 1. Hypoxic respiratory failure-as noted on previous notes, this is a consequence of bronchopneumonia, volume overload and pulmonary inflammation/pulmonary fibrosis. Each of these will be treated as described below. 2. Bronchopneumonia-the patient's sputum culture grew Pseudomonas. She is currently being treated with levofloxacin and tobramycin therapy. We will continue each of these as well as encourage incentive spirometry, aspiration precautions, oxygen per protocol, and pulmonary toilet. 3. Volume overload-patient appears euvolemic with Lasix therapy. We will follow this. 4. Pulmonary fibrosis/pulmonary inflammation-patient is currently being treated with prednisone 40 mg on a daily basis. Inflammatory markers remain reasonably high. We will continue this regimen for now. Symptoms are slowly improving. 5. Urinary tract infection-patient has been appropriately treated for Enterobacter cloacae. We will remain aware. 6. Transaminitis-patient has achieved improvement with discontinuing Zosyn therapy. 7. Paroxysmal atrial fibrillation-patient is in a sinus-generated rhythm with diltiazem and sotalol therapy. We will remain aware that levofloxacin does interact with sotalol. Serial EKG evaluations have suggested no evidence of prolonged QT interval. 8. Hypothyroidism-we will continue patient on replacement. 9. Depression/anxiety/chronic pain-symptoms are reasonably controlled with gabapentin and duloxetine therapy. 10. Cutaneous Opal-we will continue patient on topical nystatin. 11. Right knee pain-x-ray suggested no evidence of bony abnormality. We will continue physical therapy as tolerated. 12. Profound weakness-the patient continues to very slowly improve. She is being treated with physical therapy. She will likely require rehabilitation at discharge. 13. Disposition. At this point, patient continues to require nursing home care in a hospital setting. We will plan discharge to rehabilitation once appropriate. cc: Clyde Villegas MD
[2019-10-29] MEDS: ALLEGRA PO SCH (20:56)
[2019-10-29] MEDS: CARDIZEM LA PO SCH (20:56)
[2019-10-29] MEDS: PROTONIX [NONFORMULARY] PO SCH (20:57)
[2019-10-29] MEDS: TOPAMAX PO SCH (20:57)
--- NOTE | 2019-10-29 21:38 | PULMONOLOGY PROGRESS NOTE ---
DATE: 10/29/2019 SUBJECTIVE: The patient is awake, alert, and conversant. She is smiling today. She has a cough, which is for the which is dry for the 1st time during this admission. OBJECTIVE: Vital Signs: The patient has been afebrile for the last 24 hours. Blood pressure 111/45, heart rate 81, respiratory rate 19, oxygen saturation 98%. HEENT: Pupils are equal and reactive. Oropharynx appears clear. Neck: Supple. Chest: Reveals crackles bilaterally. Cardiac exam: S1-S2. Abdomen: Is soft. Extremities: Without edema. LABORATORIES: Some radiographic improvement noted in the lung bases. IMPRESSION: A 69-year-old with 1. Pulmonary fibrosis. 2. Gram-negative pneumonia with drug-resistant Pseudomonas. 3. Deconditioning. 4. Dysphagia. 5. Chronic depression. PLAN: 1. Continue current antibiotic regimen. 2. Complete 5 to 7 days of tobramycin. This was discussed with Dr. Clyde Villegas. 3. Anticipate the need for rehabilitation at the time of discharge. cc: MD Clyde Donohue MD
[2019-10-30] MEDS: SYNTHROID PO SCH (06:06)
[2019-10-30] MEDS: BENTYL PO SCH ×3 (06:06→16:24)
[2019-10-30] MEDS: BUSPAR PO SCH ×3 (06:06→20:41)
[2019-10-30 06:39] LABS: ALB/GLOB RATIO 1.2; ALBUMIN 3.2 g/dL (3.5-5.0); CALCIUM 9.1 mg/dL (8.8-10.2); POTASSIUM 4.4 mmol/L (3.5-5.1); TOTAL BILIRUBIN 0.23 mg/dL (0.20-1.00); TOTAL PROTEIN 5.8 g/dL (6.3-8.3)
--- NOTE | 2019-10-30 07:24 | EKG Report ---
Test Performed on : 10/30/2019 07:07:40 AM Test Reason : drug monitoring Blood Pressure : / mmHG Vent. Rate : 076 BPM Atrial Rate : 076 BPM P-R Int : 156 ms QRS Dur : 120 ms QT Int : 432 ms P-R-T Axes : 023 -69 001 degrees QTc Int : 486 ms Normal sinus rhythm. Right bundle branch block Left anterior fascicular block Bifascicular block Possible Lateral infarct (cited on or before 28-SEP-2019) Abnormal ECG When compared with ECG of 29-OCT-2019 06:51, (Unconfirmed) No significant change was found Confirmed by Rohan DUFF, Frankie Donohue ([id number]) on 10/30/2019 9:41:18 AM
[2019-10-30] MEDS: CULTURELLE PO SCH ×2 (08:52→20:42)
[2019-10-30] MEDS: MYCOSTATIN SUSP PO SCH ×4 (08:52→20:41)
[2019-10-30] MEDS: FLONASE NAS SCH ×2 (08:53→20:42)
[2019-10-30] MEDS: MUCINEX DM PO SCH ×2 (08:53→20:42)
[2019-10-30] MEDS: PEPCID PO SCH (08:53)
[2019-10-30] MEDS: ESTRACE PO SCH (08:53)
[2019-10-30] MEDS: PREDNISONE PO SCH (08:53)
[2019-10-30] MEDS: BETAPACE PO SCH ×2 (08:53→20:41)
[2019-10-30] MEDS: NEURONTIN PO SCH ×3 (08:53→20:41)
[2019-10-30] MEDS: ZOVIRAX PO SCH (08:53)
[2019-10-30] MEDS: LASIX PO SCH (08:53)
[2019-10-30] MEDS: LEVAQUIN 500 MG/D5W 500 MG/100 ML IVPB IV SCH (08:53)
[2019-10-30] MEDS: DITROPAN XL PO SCH (08:53)
[2019-10-30] MEDS: CYMBALTA PO SCH ×2 (08:53→20:41)
[2019-10-30] MEDS: MICRO-K PO SCH (08:53)
[2019-10-30] MEDS: ATROVENT NEB INH SCH ×4 (09:12→19:40)
[2019-10-30] MEDS: XOPENEX NEB INH SCH ×4 (09:12→19:40)
[2019-10-30] MEDS: LOVENOX SUBQ SCH (16:24)
--- NOTE | 2019-10-30 19:21 | PROGRESS NOTE ---
DATE: 10/30/2019 SUBJECTIVE: Upon my arrival, the patient was sitting upright in her chair. Overall, the patient states she had a good night. She denies fevers, chills, nausea, vomiting, or chest discomfort. Energy level remains low, but is slowly improving. OBJECTIVE: T-max 98.1 degrees, heart rate 67 to 71, respirations 16 to 32, blood pressure 105 to 148/63 to 83.General: Chronically ill appearing, no acute distress. Cardiovascular: Regular rate and rhythm. No significant murmurs, rubs, or gallops. Pulmonary: Crackles at bilateral bases. Occasional wheeze on the right lower base, improving. Abdomen: Soft, nontender, nondistended. Positive bowel sounds. Extremities: Moves all extremities well. No significant clubbing, cyanosis, or edema. Dermatologic: Evaluation reveals no evidence of rash. LABORATORY DATA: Sodium 137, potassium 4.4, chloride 93, bicarb 31, BUN 16, creatinine 1.0, glucose 96, calcium 9.1, total bilirubin 0.23, total protein 5.8, albumin 3.2, alkaline phosphatase 83, AST 21, ALT 36. ASSESSMENT AND PLAN: 1. Hypoxic respiratory failure - The patient is achieving improvement with treatment of her bronchopneumonia, volume overload state, and pulmonary inflammation/pulmonary fibrosis. We will continue treatment of each as described below. 2. Bronchopneumonia - The patient's sputum culture has grown Pseudomonas on 2 separate occasions. Interestingly, sensitivities were different. The patient currently is being treated with levofloxacin and tobramycin therapy. Symptoms are slowly improving. We will continue to encourage incentive spirometry, aspiration precautions, oxygen per protocol, and pulmonary toilet. 3. Volume overload - The patient appears euvolemic with Lasix therapy. This will be continued. 4. Pulmonary fibrosis/pulmonary inflammation - The patient currently is requiring prednisone 40 mg on a daily basis. We will discuss this further with Dr. Rodriguez. We will determine if and when a taper is appropriate. 5. Urinary tract infection - The patient has been appropriately treated for Enterobacter cloacae. She denies current symptoms. 6. Transaminitis - The patient has achieved resolution with discontinuing Zosyn therapy. 7. Paroxysmal atrial fibrillation - The patient remained in a sinus-generated rhythm with diltiazem and sotalol therapy. Serial EKGs have revealed no evidence of prolonged QT in the setting of levofloxacin and sotalol interaction. 8. Hypothyroidism - We will continue patient on replacement. 9. Depression/anxiety/chronic pain - Symptoms are controlled with gabapentin and duloxetine therapy. 10. Cutaneous Opal - The patient is treated with topical nystatin with adequate response. 11. Right knee pain - X-ray suggested no evidence of bony abnormality. She is treated with physical therapy. She is slowly improving. 12. Profound weakness- Yesterday evening, patient walked in the [place]. Energy level is slowly improving. We will plan rehabilitation at discharge. 13. Disposition - At this point, patient continues to require detention care in a hospital setting. Once patient has completed 7 days of tobramycin, we will anticipate discharge to rehabilitation. If the patient continues to do well, this will be on . cc: Clyde Villegas MD
--- NOTE | 2019-10-30 19:23 | PULMONOLOGY PROGRESS NOTE ---
DATE: 10/30/2019 SUBJECTIVE: The patient is awake, alert, and conversant. She reports she is having a good day. She has no significant sputum production. OBJECTIVE: Vital Signs: BP 105/83, heart rate 67, respiratory rate 18, oxygen saturation 98%. HEENT: Pupils are equal and reactive. Oropharynx appears clear. Neck: Supple. Chest: Reveals crackles in both lung bases without significant rhonchi Cardiac: S1-S2. Abdomen: Soft. Extremities: Without edema. LABORATORIES: Sodium 137, potassium 4.4, chloride 93, bicarbonate 31, BUN 16, creatinine 1.0. IMPRESSION: A 69-year-old with: 1. Pulmonary fibrosis. 2. Drug-resistant Pseudomonas aeruginosa. 3. Dysphagia. 4. Deconditioning. 5. Chronic depression. PLAN: 1. Continue current antibiotic regimen. If creatinine continues to inch up, I would discontinue tobramycin. 2. Check CRP level tomorrow. 3. Anticipate rehabilitation need at the time of discharge. cc: MD Clyde Donohue MD
[2019-10-30] MEDS: TOPAMAX PO SCH (20:41)
[2019-10-30] MEDS: CARDIZEM LA PO SCH (20:41)
[2019-10-30] MEDS: ALLEGRA PO SCH (20:42)
[2019-10-30] MEDS: PROTONIX [NONFORMULARY] PO SCH (20:42)
[2019-10-31] MEDS: XOPENEX NEB INH SCH ×6 (00:55→23:20)
[2019-10-31] MEDS: ATROVENT NEB INH SCH ×6 (00:55→23:20)
[2019-10-31] MEDS: BENTYL PO SCH ×3 (06:03→16:30)
[2019-10-31] MEDS: SYNTHROID PO SCH (06:03)
[2019-10-31] MEDS: BUSPAR PO SCH ×3 (06:03→21:30)
[2019-10-31] MEDS ORDERED: TOBRAMYCIN IV SCH (06:15)
[2019-10-31] MEDS ORDERED: NS IV SCH (06:15)
[2019-10-31 06:27] LABS: BASO# 0.13 X1000 (0.0-0.2); BASO% 0.9 % (0.0-0.8); EOS# 0.03 X1000 (0.0-0.7); EOS% 0.2 % (0.0-10.0); HEMATOCRIT 37.4 % (37.0-47.0); HEMOGLOBIN 11.7 g/dL (12.0-16.0); IMM GRAN% 5.1 % (0.0-0.5); LYMPH# 2.39 X1000 (1.2-3.4); LYMPH% 17.5 % (20.5-51.1); MCH 29.9 PG (27-31); MCHC 31.3 g/dL (33-37); MCV 95.7 FL (81-99); MONO# 1.27 X1000 (0.11-0.59); MONO% 9.3 % (1.7-9.3); MPV 9.9 FL (7.4-10.4); NEUT# 9.17 X1000 (1.4-6.5); PLT 312 X1000 (130-400); RBC 3.91 XMIL (4.2-5.4); RDW 16.3 % (11.5-14.5); WBC 13.69 X1000 (4.8-10.8)
[2019-10-31 06:34] LABS: AGAP 11; ALB/GLOB RATIO 1.2; ALBUMIN 3.1 g/dL (3.5-5.0); ALKALINE PHOSPHATASE 82 U/L (32-104); BUN 14 mg/dL (8-22); CALCIUM 9.1 mg/dL (8.8-10.2); CHLORIDE 94 mmol/L (98-107); COSMO 277; CREATININE 0.9 mg/dL (0.5-0.9); ESTIMATED GFR > 60; GLUCOSE 84 mg/dL (70-104); GOT 19 U/L (10-30); GPT 29 U/L (10-36); POTASSIUM 3.9 mmol/L (3.5-5.1); SODIUM 139 mmol/L (136-145); TCO2 34 mmol/L (25-35); TOTAL PROTEIN 5.7 g/dL (6.3-8.3)
[2019-10-31 06:57] LABS: BANDS 2 % (0-1); LYMPHS 16 % (21-51); SEGS 76 % (42-75)
--- NOTE | 2019-10-31 07:01 | EKG Report ---
Test Performed on : 10/31/2019 06:24:40 AM Test Reason : drug monitoring Blood Pressure : / mmHG Vent. Rate : 083 BPM Atrial Rate : 375 BPM P-R Int : 000 ms QRS Dur : 116 ms QT Int : 422 ms P-R-T Axes : 000 -68 -08 degrees QTc Int : 495 ms Atrial fibrillation. Incomplete right bundle branch block Left anterior fascicular block Possible Lateral infarct (cited on or before 28-SEP-2019) Abnormal ECG When compared with ECG of 30-OCT-2019 07:07, Atrial fibrillation. has replaced Sinus rhythm. Questionable change in initial forces of Lateral leads Inverted T waves have replaced nonspecific T wave abnormality in Lateral leads Confirmed by Rohan DUFF, Frankie Donohue ([id number]) on 10/31/2019 9:58:08 AM
[2019-10-31] MEDS: BETAPACE PO SCH ×2 (09:25→21:30)
[2019-10-31] MEDS: CYMBALTA PO SCH ×2 (09:25→21:30)
[2019-10-31] MEDS: MICRO-K PO SCH (09:25)
[2019-10-31] MEDS: DITROPAN XL PO SCH (09:25)
[2019-10-31] MEDS: PEPCID PO SCH (09:25)
[2019-10-31] MEDS: LASIX PO SCH (09:25)
[2019-10-31] MEDS: MYCOSTATIN SUSP PO SCH ×4 (09:25→21:30)
[2019-10-31] MEDS: ESTRACE PO SCH (09:25)
[2019-10-31] MEDS: NEURONTIN PO SCH ×3 (09:26→21:30)
[2019-10-31] MEDS: PREDNISONE PO SCH (09:26)
[2019-10-31] MEDS: ZOVIRAX PO SCH (09:26)
[2019-10-31] MEDS: FLONASE NAS SCH ×2 (09:26→21:29)
[2019-10-31] MEDS: MUCINEX DM PO SCH ×2 (09:26→21:31)
[2019-10-31] MEDS: LEVAQUIN 500 MG/D5W 500 MG/100 ML IVPB IV SCH (09:26)
[2019-10-31] MEDS: CULTURELLE PO SCH ×2 (09:26→21:30)
--- NOTE | 2019-10-31 14:26 | PROGRESS NOTE ---
DATE: 10/31/2019 SUBJECTIVE: Upon my arrival, patient was sitting upright in a chair. Patient continues to complain of significant fatigue as well as some intermittent shortness of breath. Otherwise, p.o. intake is improving. She denies fevers, chills, nausea, or vomiting. She continues to work with physical therapy, although her weakness is limiting her activity. OBJECTIVE: T-max 98 degrees, heart rate 70 to 84, respirations 16 to 20, blood pressure 103 to 124 over 58 to 73.General: Chronically ill appearing in no acute distress. Cardiovascular: Regular rate and rhythm. No significant murmurs, rubs, or gallops. Pulmonary: Crackles extending to mid lung field bilaterally improving air movement. Abdomen: Soft, nontender, and nondistended. Positive bowel sounds. Extremities: Moves all extremities well. No significant clubbing, cyanosis, or edema. Dermatologic: Evaluation reveals no evidence of rash. LABORATORY DATA: White blood cell count 13.69 hemoglobin 11.7, hematocrit 37.4 and platelet count 312,000. Sodium 139, potassium 3.9, chloride 94, bicarb 34, BUN 14, creatinine 0.9 glucose 84, calcium 9.1, total bilirubin 0.30, total protein 5.7, albumin 3.1, alkaline phosphatase 82, AST 19, and ALT 29. ASSESSMENT AND PLAN: 1. Hypoxic respiratory failure. This is a consequence of bronchopneumonia, volume overload, and pulmonary inflammation/pulmonary fibrosis. Each of these will be treated as described below. 2. Bronchopneumonia-Patient is achieving a very slow improvement. She is currently being treated for pseudomonas pneumonia with tobramycin and levofloxacin therapy. Her aeration on examination and on per chest x-ray are improving. We will continue to encourage incentive spirometry, aspiration precautions, oxygen per protocol, and pulmonary toilet. 3. Volume overload-Patient is euvolemic with Lasix therapy. This will be continued. 4. Pulmonary fibrosis/pulmonary inflammation-Patient's symptoms are reasonably stable with prednisone 40 mg on a daily basis. Further evaluation as an outpatient. We will likely be warranted. At time of discharge, we will decrease to 30 mg daily. 5. Urinary tract infection-Patient has been appropriately treated for Enterobacter cloacae. She is asymptomatic. 6. Transaminitis-Patient has achieved resolution with Zosyn therapy. 7. Paroxysmal atrial fibrillation-Patient is in a sinus-generated rhythm with diltiazem and sotalol therapy. We will remain aware that sotalol and levofloxacin interact. She has demonstrated no evidence of prolonged QT interval with serial EKGs. 8. Hypothyroidism-We will continue patient on replacement. 9. Depression/anxiety/chronic pain-We will continue gabapentin and duloxetine therapy. 10. Cutaneous Opal-symptoms are controlled with topical nystatin as needed. 11. Right knee pain-X-ray revealed no bony abnormality. We will continue physical therapy. Symptoms are slowly improving. 12. Profound weakness-Unfortunately, this is limiting her recovery. This likely is a consequence of prolonged hospitalization as well as steroids. We will continue physical therapy. We will plan to decrease steroids tomorrow. We anticipate discharge to rehabilitation tomorrow as well. 13. Disposition. At this point, patient continues to require jail care in a hospital setting. We will plan discharge to rehabilitation once appropriate. cc: Clyde Villegas MD
[2019-10-31] MEDS: LOVENOX SUBQ SCH (16:30)
[2019-10-31] MEDS: ALLEGRA PO SCH (21:30)
[2019-10-31] MEDS: TOPAMAX PO SCH (21:30)
[2019-10-31] MEDS: PROTONIX [NONFORMULARY] PO SCH (21:30)
[2019-10-31] MEDS: CARDIZEM LA PO SCH (21:30)
--- NOTE | 2019-10-31 23:22 | PULMONOLOGY PROGRESS NOTE ---
DATE: 10/31/2019 SUBJECTIVE: The patient is awake and alert. She was sitting in the bedside chair upon my arrival. She reports she has had a fairly good day. She has a dry nonproductive cough. OBJECTIVE: Vital Signs: The patient has been afebrile for the last 24 hours. Blood pressure 104/56, heart rate 77, respiratory rate 18, oxygen saturation 100% on nasal cannula. HEENT: Pupils are equal and reactive. Oropharynx appears clear. Neck: Reveals bibasilar crackles. Cardiac: S1, S2. Abdomen: Soft. Extremities: Without edema. LABORATORIES: White blood count 13.7, hemoglobin 11.7, platelet count 312,000. Sodium 139, potassium 3.9, chloride 94, bicarbonate 34, BUN 14, creatinine 0.9. C-reactive protein yesterday had decreased to 12.5. IMPRESSION: A 69-year-old with 1. Pulmonary fibrosis. 2. Drug resistant Pseudomonas aeruginosa. 3. Dysphagia. 4. Deconditioning. 5. Chronic depression. PLAN: 1. Continue antibiotics, as per discussion with Dr. Villegas. The patient's tobramycin will be discontinued at the time of discharge and she will complete an additional week of Levaquin. 2. Anticipate discharge to rehab soon. Would discharge on prednisone 30 mg per day. Hopefully, this can be weaned over time to prevent steroid-induced myopathy. cc: MD Clyde Donohue MD
[2019-11-01] MEDS: BUSPAR PO SCH ×2 (05:39→12:41)
[2019-11-01] MEDS: BENTYL PO SCH ×3 (05:39→12:41)
[2019-11-01] MEDS: SYNTHROID PO SCH ×2 (05:39→06:19)
[2019-11-01 06:19] LABS: ALB/GLOB RATIO 1.3; ALBUMIN 3.3 g/dL (3.5-5.0); CALCIUM 9.5 mg/dL (8.8-10.2); POTASSIUM 3.6 mmol/L (3.5-5.1); TOTAL BILIRUBIN 0.27 mg/dL (0.20-1.00); TOTAL PROTEIN 5.9 g/dL (6.3-8.3)
--- NOTE | 2019-11-01 08:51 | Diag Imaging Result Doc PS360 ---
EXAM: CHEST-PORTABLE INDICATION: wheezing TECHNIQUE: One view COMPARISON: 10/29/2019 FINDINGS: There is a background of interstitial fibrosis bilaterally. There is increased opacity at the right lower lung zone as compared to the previous study. This suggests slight worsening of superimposed edema or pneumonia. The left lung remains stable. No other new consolidation is identified. Cardiac silhouette is stable. IMPRESSION: Interval slight worsening of infiltrate at the right lower lung zone. Stable chest, otherwise. Electronically signed by Alex Vega 11/01/2019 8:49 AM
[2019-11-01] MEDS: XOPENEX NEB INH SCH ×2 (09:24→11:18)
[2019-11-01] MEDS: ATROVENT NEB INH SCH ×2 (09:24→11:19)
[2019-11-01] MEDS: BETAPACE PO SCH (09:39)
[2019-11-01] MEDS: LEVAQUIN 500 MG/D5W 500 MG/100 ML IVPB IV SCH (09:39)
[2019-11-01] MEDS: CYMBALTA PO SCH (09:40)
[2019-11-01] MEDS: PEPCID PO SCH (09:40)
[2019-11-01] MEDS: PREDNISONE PO SCH (09:40)
[2019-11-01] MEDS: ZOVIRAX PO SCH (09:40)
[2019-11-01] MEDS: NEURONTIN PO SCH ×2 (09:40→12:41)
[2019-11-01] MEDS: DITROPAN XL PO SCH (09:40)
[2019-11-01] MEDS: MYCOSTATIN SUSP PO SCH ×2 (09:40→12:40)
[2019-11-01] MEDS: MUCINEX DM PO SCH (09:40)
[2019-11-01] MEDS: FLONASE NAS SCH (09:41)
[2019-11-01] MEDS: LASIX PO SCH (09:41)
[2019-11-01] MEDS: CULTURELLE PO SCH (09:41)
[2019-11-01] MEDS: MICRO-K PO SCH (09:41)
[2019-11-01] MEDS: ESTRACE PO SCH (09:41)
[2019-11-01] MEDS: IMITREX SUBQ SUBQ PRN (09:57)
--- NOTE | 2019-11-01 11:17 | Diag Imaging Result Doc PS360 ---
EXAM: CHEST-2 VIEWS 11/01/2019 HISTORY: Pneumonia TECHNIQUE: AP and lateral chest COMMENT: There are coarse opacities bilaterally. There appears to be some slight improvement compared to 11/01/2019 at 0839. Some of this may be technical. There is apical pleural thickening on the left which was also present on 09/04/2019. IMPRESSION: Slightly improved pneumonia. The possibility of superimposed fibrosis cannot be excluded. Electronically signed by Henrry Buchanan 11/01/2019 11:15 AM
[2019-11-01 11:23] VITALS: BP 99/79
--- NOTE | 2019-11-01 14:09 | DISCHARGE SUMMARY ---
ADMISSION DATE: 10/10/2019 DISCHARGE DATE: 11/01/2019 ADMISSION DIAGNOSIS: Profound shortness of breath. DISCHARGE DIAGNOSES: 1. Hypoxic respiratory failure secondary to broncho pneumonia, volume overload and pulmonary inflammation/pulmonary fibrosis. 2. Bronchopneumonia with sputum cultures returning positive for Pseudomonas on 2 occasions with different sensitivities. 3. Volume overload, improved. 4. Pulmonary fibrosis/pulmonary inflammation. 5. Urinary tract infection, resolved. 6. Transaminitis, resolved. 7. Paroxysmal atrial fibrillation, present on arrival. 8. Hypothyroidism, present on arrival. 9. Depression/anxiety/chronic pain, present on arrival. 10. Cutaneous Opal, present on arrival. 11. Right knee pain secondary to right knee sprain. 12. Profound weakness. CONSULTATIONS: Dr. Rodriguez with Pulmonary Medicine was consulted for further evaluation and management of respiratory failure. PROCEDURES: 1. CT scan of the head was performed on 10/10/2019 which revealed no evidence of acute intracranial pathology. 2. X-ray of the knee was performed on 10/27/2019 which revealed negative examination. 3. Multiple chest x-rays with a chest x-ray prior to discharge on 11/01/2019 revealing coarse opacities bilaterally. There appears to be some slight improvement compared to portable film from the morning of 11/01/2019. There is apical pleural thickening on the left which was also present on 09/04/2019. HISTORY AND PHYSICAL EXAMINATION: See admit note. PHYSICAL EXAMINATION PRIOR TO DISCHARGE: Temperature 97.6 degrees, heart rate 72, respirations 24, blood pressure 99/79. General: Chronically ill-appearing, no acute distress. Cardiovascular: Regular rate and rhythm. No significant murmurs, rubs, or gallops. Pulmonary: Crackles at the left lower third of the lung field and lower third to lower half of the lung field on the right. Occasional faint wheeze on the right. Improving air movement. Abdomen: Soft, nontender, nondistended. Positive bowel sounds. Extremities: Moves all extremities well. No significant clubbing, cyanosis, or edema. Raynaud's is present. Dermatologic: Evaluation reveals no evidence of rash. LABORATORY DATA: Prior to discharge: Sodium 138, potassium 3.6, chloride 93, bicarb 34, BUN 16, creatinine 1.0, glucose 94, calcium 9.5, total bilirubin 0.27, total protein 5.9, albumin 3.3, alkaline phosphatase 79, AST 17, ALT 26. HOSPITAL COURSE: The patient was admitted as per history and physical examination. Hospital course per condition is as follows. 1. Hypoxic respiratory failure - upon admission, patient was noted to have profound fatigue and respiratory compromise. The patient was immediately treated for underlying bronchopneumonia per chest x-ray, volume overload and pulmonary inflammation/pulmonary fibrosis. With aggressive management of each of these as well as incentive spirometry, aspiration precautions, oxygen per protocol, and pulmonary toilet, patient's condition very slowly improved. We will address each of these underlying issues as described below. The patient's long-term pulmonary status remains guarded secondary to underlying pulmonary fibrosis. 2. Bronchopneumonia - upon admission, chest x-ray suggested a bronchopneumonia bilaterally. Sputum culture returned positive for pseudomonas. Patient was treated with pulmonary toilet, aspiration precautions, incentive spirometry, and Zosyn therapy per culture data. Patient's condition slowly improved with time, only to experience a relapse. Repeat cultures returned positive for Pseudomonas with a different sensitivity including resistance to Zosyn. The patient was then switched to tobramycin and levofloxacin. She completed a week of IV therapy while hospitalized. She will be transitioned to a week of levofloxacin as an outpatient. Because of a an interaction between Levaquin and sotalol, daily EKGs demonstrated no evidence of increasing QT interval. The patient will need to be monitored closely and continued on incentive spirometry, aspiration precautions, oxygen per protocol, and pulmonary toilet. 3. Volume overload - examination also suggested volume overload upon admission. The patient has been treated with IV Lasix followed by daily Lasix. At present time, she is euvolemic. 4. Pulmonary fibrosis/pulmonary inflammation - this is quite concerning. Prior to a previous admission, patient was noted to have progressive pulmonary fibrosis of unknown etiology. Bronchoscopy with biopsy has not been pursued secondary to her tenuous condition. The patient has required treatment as described above for underlying pneumonia as well as high dose steroids. Throughout hospitalization, patient was on prednisone 40 mg on a daily basis. She will transition down to 30 mg on a daily basis at time of transfer to rehabilitation. Long- term, patient likely will need further pulmonary evaluation and possible bronchoscopy to define her underlying pulmonary fibrosis. This certainly is contributing to her slow recovery and propensity toward pneumonia. 5. Urinary tract infection - while hospitalized, patient was diagnosed with a urinary tract infection secondary to Enterobacter cloacae. She was treated appropriately with antibiotic therapy. She is currently asymptomatic. 6. Transaminitis - while hospitalized, patient developed a transaminitis secondary to Zosyn therapy. With discontinuing Zosyn, her transaminases normalized. We will avoid Zosyn therapy and placed as an allergy. 7. Paroxysmal atrial fibrillation - The patient remained in a sinus-generated rhythm throughout hospitalization with diltiazem and sotalol therapy. As above, patient was monitored closely with adding levofloxacin to sotalol therapy. QT intervals remained acceptable with serial EKGs. At this point, full anticoagulation has not been pursued secondary to her pulmonary risk. 8. Hypothyroidism -patient was continued on replacement. Clinically, she is euthyroid. 9. Depression/anxiety/chronic pain - the patient was continued on gabapentin and duloxetine therapy while hospitalized. Gabapentin dosage has been decreased secondary to some somnolence. Overall, symptoms are reasonably controlled. She does have appropriate sadness associated with her overall illness as well as inability to see her family. 10. Cutaneous opal - the patient was treated with as needed topical nystatin while hospitalized. Symptoms are controlled at time of discharge. 11. Right knee pain - per report, patient suffered a controlled fall while hospitalized. X-ray of the knee demonstrated no evidence of bony abnormality. I suspect this represented a sprain. She has been treated with physical therapy throughout hospitalization. Symptoms are slowly improving. 12. Profound weakness - this likely is multifactorial, secondary to her multiple medical conditions, medications, as well as prolonged steroid usage. We will decrease prednisone as noted. We will refer patient for further physical therapy and strength training. DISCHARGE CONDITION: Stable. DISPOSITION: Discharged to rehabilitation. MEDICATIONS: 1. Acetaminophen 650 mg every 6 hours as needed. 2. Acyclovir 400 mg twice daily as prescribed by Dr. Carr for her left eye keratitis. 3. Buspirone 20 mg in the morning, 10 mg at noon and 20 mg in the evening. 4. Bentyl 10 mg 3 times daily with meals. 5. Diltiazem LA 120 mg at bedtime. 6. Duloxetine 60 mg twice daily. 7. Lovenox 40 mg subcu q.24 hours. 8. Estradiol 1 mg daily. 9. Pepcid 20 mg daily. 10. Fexofenadine 180 mg at bedtime. 11. Fluticasone nasal spray 2 sprays each nostril daily. 12. Lasix 40 mg daily. 13. Gabapentin 100 mg 3 times daily at 9 a.m., 1300, and 2100. 14. Mucinex DM twice daily. 15. Ipratropium bromide nebulized 0.5 mg every 4 hours while awake. 16. Culturelle 1 tablet twice daily. 17. Levalbuterol 1.25 mg every 4 hours while awake. 18. Levothyroxine 112 mcg daily at 7 a.m. 19. Calmoseptine ointment as needed. 20. Topical nystatin powder applied twice daily as needed. 21. Oxybutynin ER 10 mg daily. 22. Pantoprazole 40 mg at bedtime. 23. Polyethylene glycol 17 g in 8 ounces of juice daily as needed. 24. Potassium chloride 8 mEq daily. 25. Prednisone 30 mg daily. 26. Saline nasal spray as needed. 27. Sotalol 80 mg twice daily. 28. Imitrex subcu 6 mg every 12 hours as needed. 29. Topamax 50 mg at bedtime. 30. Levaquin 500 mg daily for 7 more days. 31. Refresh eyedrops 4 times daily as needed. INSTRUCTIONS: 1. Patient is instructed to practice aspiration precautions. 2. Incentive spirometry every hour while awake. FOLLOWUP: The patient is to follow up with me upon discharge from rehabilitation. Patient is to follow up with Dr. Rodriguez upon discharge from rehabilitation. Patient is to follow up with Dr. Mushtaq Hernandes upon discharge from rehabilitation. cc: Clyde Villegas MD
== END 2019-11-01 14:38 | DRG 177 ==
LOC: SUPCPDRO → ED 08:45 → 2N 13:25
PROVIDERS: ADMIT Internal Medicine; ATTEND Internal Medicine